=== PATIENT | female | born 1950 | race Caucasian/White ===

== ENCOUNTER 2024-07-30 10:37 | Outpatient (AMB) | payer MEDICARE, SELFPAY ==
--- NOTE | 2024-07-30 10:39 | A.OFFPC_ITS ---
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 // Requesting health review Allergies No Known Allergies Allergy (Verified 07/30/24 11:03) Medication List - Last Reconciled 07/30/24 by LLOYD Cohn- calcium carbonate-vitamin D3 600 mg-10 mcg (400 unit) (Calcium 600 with Vitamin D3) tabs PO cholecalciferol (vitamin D3) 50 mcg PO DAILY estradiol 1 mg PO DAILY medroxyprogesterone 2.5 mg PO DAILY HPI HPI Comments History of Present Illness Details 74 y/o F with HLD, hepatic cyst, osteope charly, family hx breast ca in sister, family hx of CAD, palpitations (holter sinus tach 2022, echo and stress done), premature menopause, Vit d def SurgHx: bilat cataract removal, tonsillectomy, tubal ligation, c section x 2, 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 Previous PCP, Tisha, records reviewed Last AWV 11/2023 CC: Uunsteadiness and balance issues. - She reports unsteadiness for several m onths, experiencing a general sense of imbalance, commonly when walking or gardening, with more consistent listing to the right, but not specifically related to positional changes. - Occasional dizziness is noted, but it is not severe enough to cause her to pause or sit. - The unsteadiness does not lead to fall s, except for a minor incident when she was jostled. - Dry eyes, diagnosed by an eye doctor, are sometimes accompanied by blurred vision, potentially contributing to balance issues. - The patient is otherwise active, with overall good health. - Her relevant medical history includes hyperlipidemia, hepatic cysts, osteopenia, palpitations, premature menopause, and vitamin D deficiency, which is managed with supplements. - She uses estradiol and medroxyprogeste hesham. - Her family history includes breast can cer in a sister and coronary artery disease. Exam: Awake alert NAD PERRLA, Left lateral nystagmus produces sx of head fullness , conjunctiva and sclera clear No carotid bruit Neck FROM RRR LS CTAB [place] negative; however she gets blurring of vision in contralateral eye during the manuever that improves when sitting upright. Normal strength, tone and reflexes,Oriented x 3, CN II-XI intact, CORTEZ x 4, normal speech, staggering gait, no pronator drift, no tremor Abnormal tandem gait unsteady bilat worse on the R, mildly + rhomberg Ext vasc intact. Discussion Notes I discussed with the patient the possibility that her unsteadiness could be due to several factors including inner ear issues, B12 deficiency, or a cerebrovascular event like a past stroke. I explained the need to investigate further with imaging of the brain to identify any potential structural causes, such as stroke or brain lesions, that might explain her symptoms. We also di scussed the importance of checking her blood chemistry to rule out conditions like B12 deficiency. The need for possible carotid ultrasound was also discussed, depending on previous results, as she thinks she had this done about 3 years ago. I do not have this but did request the results and will review when avail. I informed her about the procedure for scheduling an MRI of her brain, including potential insurance hurdles. I emphasized the importance of follow-up and that she should seek immediate care if her symptoms worsen or if she experiences acute neurological changes. Assessment and Plan 1. Unsteadiness and balance issues Due to the patient's symptoms and exam findings, an MRI of the brain is warranted to evaluate for potential cerebrovascular or other neurological issues. We will perform a full blood panel, including B12 levels, to assess nutritional status. Previous carotid ultrasound results will be reviewed for any need for repeat imaging. Follow-up will be scheduled once tests are completed - to be arranged by the office when results are avail If MRI denied, could do CT scan but that is not preferred. 2. Vitamin D deficiency The patient is currently managing her vitamin D deficiency with supplements. Monitoring and continuation of this treatment are planned. Patient Instructions - Continue taking your vitamin D and schuyler cium supplements as prescribed. - Use eye drops as needed to manage dry eye symptoms. - Be aware of any changes in balance or sudden changes in vision and seek immediate care if these occur. - Attend your scheduled follow-up appoin tments and obtain labs as instructed. - Follow up with your eye doctor if symp toms of blurry vision persist or worsen. - RTO once results are back, sooner PRN Consent Patient was informed and verbally consented to the use of an ambient scribe for clinic note documentation during this visit. Total time spent caring for the patient today was 60 minutes. This includes time spent before the visit reviewing the chart, time spent during the visit, and time spent after the visit on documentation, reviewing laboratory results, diagnostic imaging, medications, performing a medically necessary evaluation, counseling on diagnoses, care coordination, ordering appropriate tests, ordering appropriate medications, review of tests performed by other providers, reporting test results with the patient, communication with other healthcare providers. [facility] Medical History (Updated 07/30/24 @ 11:50 by Sofie Barbosa [facility] History of screening mammography (~12/2023) No pertinent past medical history Surgical History (Updated 07/30/24 @ 07:43 by LLOYD Cohn-FIONA) History of colonoscopy (~2022) Family History (Updated 07/30/24 @ 10:52 by Gale Pardo MA) Father Cardiovascular disease Throat cancer Sister Breast cancer Social History (Updated 07/30/24 @ 10:50 by Gale Pardo MA) Household Members: Spouse Both parents involved: No Caregiver staying overnight: No Housing: House Are you a primary hospice home care coordinator to a significant other at home: No Do you presently have visiting nurse or other home services: No 75 years or older and lives alone: No Alcohol intake: never Patient Tobacco Use Status: Never used Tobacco e-Cigarette/Vaping Use: Never Used Second Hand Smoke Exposure: No service: No Current occupational status: retired Cognitive needs: No Hearing needs: No Vision needs: No Questionnaire PHQ-9 Over the last 2 weeks, how often have you been bothered by any of the following problems? 1. Little interest or pleasure in doing things: not at all 2. Feeling down, depressed, or hopeless: not at all 3. Trouble falling or staying asleep, or sleeping too much: not at all 4. Feeling tired or having little energy: not at all 5. Poor appetite or overeating: not at all 6. Feeling bad about yourself - or that you are a failure or have let yourself or your family down: not at all 7. Trouble concentrating on things, such as reading the newspaper or watching television: not at all 8. Moving or speaking so slowly that other people could have noticed. Or the opposite - being so fidgety or restless that you have been moving around a lot more than usual: not at all 9. Thoughts that you would be better off or of hurting yourself in some way: not at all Total score: 0 Depression Screening Interpretation: Negative Depression Screening Done: Yes 03673 - PHQ-9 Billing: Yes Source: Developed by Drs. Sanchez Shah, Sherri Mejia, Jaun Silva and colleagues, with an educational no from [employer]. Thrive Questionnaire Date Thrive assessed: 07/24/24 I am a: Patient What is your living situation today?: I have a steady place to live Within the past 12 months, did the food you bought not last and you didn't have the money to get more?: Never true Within the past 12 months, did you worry whether your food would run out before you got money to buy more?: Never true Do you have trouble paying for medicines?: No Do you have trouble getting transportation to medical appointments?: No Do you have trouble paying your heating and electricity bill?: No Do you have trouble taking care of your child, family member or friend?: No Do you have trouble with day-to-day activities such as bathing, preparing meals, shopping, managing finances, etc.?: No Are you currently unemployed and looking for a job?: No Are you interested in more education?: No Please select the resources that you would like help with: None Currently or been in a relationship where the following occur: No concerns reported THRIVE Score: 0 AUDIT C Alcohol Use Questionnaire (AUDIT-C) 1. How often do you have a drink containing alcohol?: Never 2. How many drinks containing alcohol do you have on a typical day when you are drinking?: 1 or 2 3. How often do you have six or more drinks on one occasion?: Never Total Score: 0 Score Reviewed/Action Taken: Yes DILLON-7 AMB Questionnaire DILLON-7 Date DILLON - 7 assessed: 07/30/24 Feeling nervous, anxious, or on edge: 0 = Not at all Not being able to stop or control worryin = Not at all Worrying too much about different things: 0 = Not at all Trouble relaxin = Not at all Being so restless that it is hard to sit still: 0 = Not at all Becoming easily annoyed or irritable: 0 = Not at all Feeling afraid as if something awful might happen: 0 = Not at all Total DILLON-7 score (0-4 normal; 5-9 mild; 10-14 moderate; 15-21 severe): 0 Source: Developed by Drs. Sanchez Shah, Sherri Mejia, Jaun Silva and colleagues, with an educational no from [employer]. DILLON-7 Assessment Billing DILLON-7 Assessment Tool: DILLON-7 Assessment 23671 Physical exam (Primary Care) Vital Signs: Last Vital Signs Temp 97.6 F 07/30/24 10:47 Pulse 68 07/30/24 10:47 Resp 12 07/30/24 10:47 BP 104/67 07/30/24 10:47 Pulse Ox 99 07/30/24 10:47 Oxygen Delivery Method Room Air 07/30/24 10:47 BMI result Body Mass Index 24.8 Tobacco/Smoking Status: Tobacco use Status Tobacco use date assessed 07/30/24 07/30/24 10:49 Patient Tobacco Use Status Never used Tobacco 07/30/24 10:50 e-Cigarette/Vaping Use Never Used 07/30/24 10:50 PHQ-9: PHQ-9 Score PHQ-9: Total score 0 07/30/24 10:49 Depression Screening Interpretation: Negative Thrive Assessment: Date of Thrive Assessment Date Thrive assessed 07/30/24 07/30/24 10:43 Currently or been in a relationship where the following occur: No concerns reported Coding Level of Care Code New Pt Level 5 (74216) Complex EM visit Add On G2211 Diagnoses Ataxia R27.0 Encounter to establish care Z76.89 Mixed hyperlipidemia E78.2 Hyperlipidemia type: mixed hyperlipidemia Premature menopause on HRT E28.319; Z79.890 Family history of breast cancer in sister Z80.3 Osteopenia of multiple sites M85.89 Osteopenia location: multiple sites Vitamin D deficiency E55.9 Family history of coronary artery disease Z82.49 Additional Codes PHQ-9 - 52064 - PHQ-9 Billing: Yes ([id number]) DILLON-7 Assessment Billing - DILLON-7 Assessment Tool: DILLON-7 Assessment 89847 ([id number]) Assessment & Plan Assessment & Plan (1) Ataxia: Code(s): R27.0 - Ataxia, unspecified Category: Medical (2) Encounter to establish care: Code(s): Z76.89 - Persons encountering health services in other specified circumstances (3) HLD (hyperlipidemia): Code(s): E78.5 - Hyperlipidemia, unspecified Category: Medical Qualifiers: Hyperlipidemia type: mixed hyperlipidemia Qualified Code(s): E78.2 - Mixed hyperlipidemia (4) Premature menopause on HRT: Code(s): E28.319 - Asymptomatic premature menopause; Z79.890 - Hormone replacement therapy Category: Medical (5) Family history of breast cancer in sister: Code(s): Z80.3 - Family history of malignant neoplasm of breast Category: Medical (6) Osteopenia: Code(s): M85.80 - Other specified disorders of bone density and structure, unspecified site Category: Medical Qualifiers: Osteopenia location: multiple sites Qualified Code(s): M85.89 - Other specified disorders of bone density and structure, multiple sites (7) Vitamin D deficiency: Code(s): E55.9 - Vitamin D deficiency, unspecified Category: Medical (8) Family history of coronary artery disease: Code(s): Z82.49 - Family history of ischemic heart disease and other diseases of the circulatory system Category: Medical Plan . Orders: Orders Complete Blood Count no Diff Today R27.0 - Ataxia, unspecified Comprehensive Met. Panel Today R27.0 - Ataxia, unspecified Ferritin Today R27.0 - Ataxia, unspecified Lipid Panel Today R27.0 - Ataxia, unspecified Microalbumin, Random (w Creat) Today R27.0 - Ataxia, unspecified TSH reflex Free T4 Today R27.0 - Ataxia, unspecified Vitamin D 25-OH Total Today R27.0 - Ataxia, unspecified UA CC w/rflx Micro + Cult Today R27.0 - Ataxia, unspecified MR head/brain wo/w con Today R27.0 - Ataxia, unspecified Hemoglobin A1c Today R27.0 - Ataxia, unspecified IRON PROFILE Today R27.0 - Ataxia, unspecified Vitamin B12 and Folate Today R27.0 - Ataxia, unspecified Patient Instructions: Walk-In Care (Urgent Care): We Make it Easy Walk-in for urgent medical issues such as: ? Seasonal Allergies ? Insect Bites ? Cough ? Diarrhea ? Acute Asthma Attacks ? Back, Knee or Joint Pain ? Ear Infection ? Fever without a Rash ? Headaches ? Nausea ? [place] Eye, Rash or Skin Irritation ? Sore Throat ? Sports Physicals ? Vomiting Most insurances are accepted. Patients do not need to be part of the [facility] to seek care at the walk-in clinic. Locations [facility] , [place] [address] ? [phone] [facility] Walk-In Care in [place] provides services to ages 18 and over. Open Monday-Monday: 8 a.m. to 5 p.m. and Monday: 9 a.m. to 3 p.m.* *Hours may vary due to staffing availability. To confirm Walk-In Care hours in [place], please call [phone]. [address] [place] [address] ? [phone] [facility] in [place] provides services to ages 12 and over. Open Monday-Monday: 8 a.m. to 5 p.m. Hours may vary due to staffing availability. To confirm Walk-In Care hours in [place], please call [phone]. LABORATORY SERVICES: [facility] Lab ? Primary Location [address] [place] [address] Monday through Monday 6:00 AM ? 5:00 PM Monday 7:00 AM ? 11:00 AM* [phone] The [facility] Lab is centrally located near the front entrance of the [facility] for easy outpatient access. Convenient parking is provided for outpatients. *Hours may vary due to staffing availability. To confirm Laboratory hours for any location, please call [phone]. Offsite Location For your convenience, we offer offsite laboratory draw stations at the following locations: [address] [facility], [place] ? [facility] [address] [facility], [address], [place] Monday through Monday 7:30 AM ? 1:00 PM* [phone] *Hours may vary due to staffing availability. To confirm Laboratory hours for any location, please call [phone]. [place] ? [facility] [address] [facility] [place] Monday through Monday 6:00 AM ? 3:30 PM* Monday 6:30 AM ? 3 PM* [phone] *Hours may vary due to staffing availability. To confirm Laboratory hours for any location, please call [phone]. [address] [facility] Monday through Monday 7:30 AM ? 4:00 PM* [phone] *Hours may vary due to staffing availability. To confirm Laboratory hours for any location, please call [phone] [place] [address] Monday through 9:00 AM ? 4:00 PM* *Hours may vary due to staffing availability. To confirm Laboratory hours for any location, please call [phone]. Appointments are not necessary. Walk-ins are welcome. Like all the departments throughout the [facility], our Lab undergoes frequent reviews to ensure the quality and accuracy of test results, and our staff takes special pride in its status as a nationally accredited facility. Patient Portal: ONE PATIENT. ONE RECORD. BETTER CARE. [facility] has a fully integrated, cutting- edge mobile electronic health information system that has revolutionized the way we care for our patients and manage our organization. This system improves communication and coordination enabling us to provide safe, higher-quality care, and an overall positive experience for staff and patients. Our first priority, as always, is to deliver the highest quality care possible. The system is running in the background supporting that priority. This portal is for all [facility] services and practices. If you are experiencing any technical difficulties with enrolling or logging into the Patient Portal please complete the [facility] Patient Portal Technical Support Form. [facility] now offers a new secure on-line interactive tool for patients to review their health information ? Patient Portal. This interactive web portal will enable patients and their families to take an active role in their care by providing easy, secure access to their health information via the internet. The Patient Portal provides patients with instant access to their health information, including laboratory results, medications, allergies, demographic information, visit history, and more. In addition to managing their own care, parents and health care proxies with authorized consent will appreciate the ability to access the records of those individuals for whom they provide care. Please note: if you wish to gain access (Proxy) to another patient?s portal, you will be required to come to the Medical Records Department in person at [facility]. Both the patient giving proxy access and the proxy will need to provide photo identification and complete the appropriate authorization. The Patient Portal also allows track their appointments online. The [facility] Patient Portal also saves patients time by allowing them to submit updates to their demographic and contact information prior to their visits. Portal email notifications will also alert patients to any new activity on their portal, such as test results and new appointments. In order to initially enroll in the [facility] Patient Portal, you will need to enter some required information including the following: ? your [facility] Medical Record number ? your personal home email address ? name ? date of Please note: In order to enroll in the [facility] Patient Portal, we need to have your email address on file in your electronic medical record. The email address needs to be specific for one person (yourself) in order for your Portal enrollment to be successful. You can update your email address in person with our Registration staff when you are registering for a hospital visit. Otherwise, you will need to come to the Health Information Management (Medical Records) Department at [facility]. We are open from Monday ? Monday from 7:30 a.m. ? 4:30 p.m. You will be required to present a photo id. Once you have successfully enrolled in the Patient Portal, you will receive a one-time user id and password for the Portal, sent to your email address. This will allow you to log into the Patient Portal within 99 hrs and reset your own logon id and password, and define personal security questions. Once your permanent login and password have been set, you can log into the [facility] Patient Portal at any time via the blue button above or from the Portal Logon button on any page of the [facility] website. [facility] encourage all of our patients to enroll in Patient Portal as it presents a valuable opportunity for patients and their families to actively participate in their care and stay healthy Welcome to [facility]. We look forward to working with you.
--- NOTE | 2024-07-30 10:39 | A.OFFPC_ITS ---
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: No Allergies No Known Allergies Allergy (Verified 07/30/24 11:03) Medication List - Last Reconciled 07/30/24 by JOHNATHON Cohn calcium carbonate-vitamin D3 600 mg-10 mcg (400 unit) (Calcium 600 with Vitamin D3) tabs PO cholecalciferol (vitamin D3) 50 mcg PO DAILY estradiol 1 mg PO DAILY medroxyprogesterone 2.5 mg PO DAILY Tobacco use date assessed: 07/30/24 Fall risk assessment: 1 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 [facility] Medical History (Updated 07/30/24 @ 11:50 by JOHNATHON Cohn) History of screening mammography (~12/2023) No pertinent past medical history Surgical History (Updated 07/30/24 @ 07:43 by JOHNATHON Cohn) History of colonoscopy (~2022) Family History (Updated 07/30/24 @ 10:52 by Gale Pardo MA) Father Cardiovascular disease Throat cancer Sister Breast cancer Social History (Updated 07/30/24 @ 10:50 by Gale Pardo MA) Household Members: Spouse Housing: House Are you a primary patient care specialist to a significant other at home: No Do you presently have visiting nurse or other home services: No Alcohol intake: never Patient Tobacco Use Status: Never used Tobacco e-Cigarette/Vaping Use: Never Used Second Hand Smoke Exposure: No service: No Current occupational status: retired Cognitive needs: No Hearing needs: No Vision needs: No Questionnaire PHQ-9 Over the last 2 weeks, how often have you been bothered by any of the following problems? 1. Little interest or pleasure in doing things: not at all 2. Feeling down, depressed, or hopeless: not at all 3. Trouble falling or staying asleep, or sleeping too much: not at all 4. Feeling tired or having little energy: not at all 5. Poor appetite or overeating: not at all 6. Feeling bad about yourself - or that you are a failure or have let yourself or your family down: not at all 7. Trouble concentrating on things, such as reading the newspaper or watching television: not at all 8. Moving or speaking so slowly that other people could have noticed. Or the opposite - being so fidgety or restless that you have been moving around a lot more than usual: not at all 9. Thoughts that you would be better off or of hurting yourself in some w ay: not at all Total score: 0 Depression Screening Interpretation: Negative Depression Screening Done: Yes 32755 - PHQ-9 Billing: Yes Source: Developed by Drs. Sanchez Shah, Sherri Mejia, Jaun Silva and colleagues, with an educational no from hereO. Thrive Questionnaire Date Thrive assessed: 07/30/24 I am a: Patient What is your living situation today?: I have a steady place to live Within the past 12 months, did the food you bought not last and you didn't have the money to get more?: Never true Within the past 12 months, did you worry whether your food would run out before you got money to buy more?: Never true Do you have trouble paying for medicines?: No Do you have trouble getting transportation to medical appointments?: No Do you have trouble paying your heating and electricity bill?: No Do you have trouble taking care of your child, family member or friend?: No Do you have trouble with day-to-day activities such as bathing, preparing meals, shopping, managing finances, etc.?: No Are you currently unemployed and looking for a job?: No Are you interested in more education?: No Please select the resources that you would like help with: None Currently or been in a relationship where the following occur: No concerns reported THRIVE Score: 0 AUDIT C Alcohol Use Questionnaire (AUDIT-C) 1. How often do you have a drink containing alcohol?: Never 2. How many drinks containing alcohol do you have on a typical day when you are drinking?: 1 or 2 3. How often do you have six or more drinks on one occasion?: Never Total Score: 0 DILLON-7 AMB Questionnaire DILLON-7 Date DILLON - 7 assessed: 07/30/24 Feeling nervous, anxious, or on edge: 0 = Not at all Not being able to stop or control worryin = Not at all Worrying too much about different things: 0 = Not at all Trouble relaxin = Not at all Being so restless that it is hard to sit still: 0 = Not at all Becoming easily annoyed or irritable: 0 = Not at all Feeling afraid as if something awful might happen: 0 = Not at all Total DILLON-7 score (0-4 normal; 5-9 mild; 10-14 moderate; 15-21 severe): 0 Source: Developed by Drs. Sanchez Shah, Sherri Mejia, Jaun Silva and colleagues, with an educational no from here[employer]. DILLON-7 Assessment Billing DILLON-7 Assessment Tool: DILLON-7 Assessment 06134 Physical exam (Primary Care) Vital Signs: Last Vital Signs Temp 97.6 F 07/30/24 10:47 Pulse 68 07/30/24 10:47 Resp 12 07/30/24 10:47 BP 104/67 07/30/24 10:47 Pulse Ox 99 07/30/24 10:47 Oxygen Delivery Method Room Air 07/30/24 10:47 BMI result Body Mass Index 24.8 Tobacco/Smoking Status: Tobacco use Status Tobacco use date assessed 07/30/24 07/30/24 10:49 Patient Tobacco Use Status Never used Tobacco 07/30/24 10:50 e-Cigarette/Vaping Use Never Used 07/30/24 10:50 PHQ-9: PHQ-9 Score PHQ-9: Total score 0 07/30/24 11:07 Depression Screening Interpretation: Negative Thrive Assessment: Date of Thrive Assessment Date Thrive assessed 07/30/24 07/30/24 10:43 Currently or been in a relationship where the following occur: No concerns reported Coding Level of Care Code Admin Sign Off/No Billing Diagnoses Ataxia R27.0 Additional Codes DILLON-7 Assessment Billing - DILLON-7 Assessment Tool: DILLON-7 Assessment 68572 ([id number]) PHQ-9 - 56318 - PHQ-9 Billing: Yes ([id number]) Assessment & Plan Assessment & Plan (1) Ataxia: Code(s): R27.0 - Ataxia, unspecified Category: Medical Plan DUPLICATE NOTE, SEE OTHER NOTE ON SAME DATE. Orders: Orders Complete Blood Count no Diff 07/30/24 R27.0 - Ataxia, unspecified Comprehensive Met. Panel 07/30/24 R27.0 - Ataxia, unspecified Ferritin 07/30/24 R27.0 - Ataxia, unspecified Lipid Panel 07/30/24 R27.0 - Ataxia, unspecified Microalbumin, Random (w Creat) 07/30/24 R27.0 - Ataxia, unspecified TSH reflex Free T4 07/30/24 R27.0 - Ataxia, unspecified Vitamin D 25-OH Total 07/30/24 R27.0 - Ataxia, unspecified UA CC w/rflx Micro + Cult 07/30/24 R27.0 - Ataxia, unspecified MR head/brain wo/w con 07/30/24 R27.0 - Ataxia, unspecified Hemoglobin A1c 07/30/24 R27.0 - Ataxia, unspecified IRON PROFILE 07/30/24 R27.0 - Ataxia, unspecified Vitamin B12 and Folate 07/30/24 R27.0 - Ataxia, unspecified
[2024-07-30 10:47] VITALS: BP 104/67; PULSE 68; RESP 12; TEMP 36.4; O2SAT 99; BMI 24.8
--- OUTSIDE RECORDS SUMMARY | 2024-07-30 12:14 | XMS_ITS | Data Portability ---
Author Organization [place] - [facility],, RADHA ROBERT MD Address [address] [address] Care Team Providers Care Client Strategist Name Role Phone BRIAN LEMOS Primary Care Provider [phone] Assessment No assessment recorded. Plan of Treatment Reminders Order Date Submit Date Provider Last Modified By Organization Details Last Modified Time Details Appointments ANNUAL EXAM 2025 09:40A M Radha Robert MD Not available Not available Not available Lab cytology report, thin prep, smear or scraping , cervical or vaginal 2023 024 QUINTEN [facility] (Centralized Electronic Ordering - All Locations), Patient Can Go To The Location Of Their Choice, [id number] 09/14/2023 10:07:31 pap test, thinprep , cervical 2021 [email or web address], [address] [place] [address], [address], 09/15/2021 07:40:42 Referral None recorded . Procedures None recorded . Surgeries None recorded . Imaging MAMMO, screenin g, digital, bilatera l - Breast Aspirati on and/or Biopsy if needed 2023 024 [facility], [address], [place], [address], 01/17/2024 10:47:14 bone density 2023 024 [email or web address], [address], [address], [place], [address], 09/08/2023 11:45:52 MAMMO, screenin g, digital, bilatera l 2021 022 [facility] ([facility]), [address] [place], [address], 11/26/2021 09:43:36 bone density 2021 022 [facility] ([facility]), [address] [place], [address], 08/28/2023 07:20:08 Medication Orders medroxyp rogester one 2.5 mg tablet 2023 024 [facility]/Pharmacy #[facility], [address] [place] [address], [id number], 09/08/2023 09:55:42 estradio l 1 mg tablet 2023 024 [facility]/Pharmacy #[facility], [address] [place] [address], [id number], 09/08/2023 09:55:41 estradio l 1 mg tablet 2022 023 [facility]/Pharmacy #[facility], [address] [place] [address], [id number], 11/08/2022 08:46:23 medroxyp rogester one 2.5 mg tablet 2022 023 [facility]/Pharmacy #[facility], [address] [place] [address], [id number], 11/08/2022 08:46:23 estradio l 1 mg tablet 2021 022 [facility]/Pharmacy #[facility], [address] [place] [address], [id number], 09/01/2021 11:25:06 medroxyp rogester one 2.5 mg tablet 2021 022 [facility]armacy #[id number], [address] [place], [address], 09/01/2021 11:25:06 Patient TargetsNo targets recorded. Patient Instructions Encounter Date Encounter Id Patient Instructions Last Modified By Organization Details Last Modified Time 02/03/2021 [id number] This visit is a phone telehealth visit. The patient consented to the visit by phone. The patient was at home at the time of the call and the provider and patient were the only people on the line. I was at [address] [place] [address], [address], [place], at the time of the call. Her recent bone density showed worsening osteopenia, with her hip T score being -2.4, despite being on HRT since prior to 2011. She is also concerned because she has a mass under her breast that has been there since July, on and off , and her sister has had breast cancer. Her mammogram in 10/2020 was negative. After discussion it is apparent that she has very little calcium in her daily intake, and takes no supplements. It is concerning that her bones are worsening while taking HRT. We discussed her diagnosis of worsening osteopenia. We reviewed the results of her bone density test, with reference to the computer images. We discussed the way that standard deviation is used for diagnosis, and what this means to her as she ages. Adequate calcium intake of 1500 mg daily, weight bearing exercise three times a week, and vitamin D supplementation of at least 400 units daily is suggested. She is advised to avoid tobacco, coffee, and steroids if possible. Benefits of an active lifestyle discussed as well. All questions answered. We discussed the different forms of medical treatment for osteoporosis, in case she might need this in the future. She will repeat the bone density testing in 2 years to assess her progress.She is aware that if her bone density diminished significantly in the intervening 2 years she may need medical therapy at that time. She is encouraged to try this preventive therapy first. Return for routine annual exam as scheduled. We also discussed her breast mass, she would like to have it examined, as her sister had breast cancer at age 49 and at age 52. The patient had previously declined BRCA testing. Come in for exam and discussion. Face to face discussion for 20 minutes. Not available 02/03/2021 09:53:13 02/05/2021 [id number] costochondritis: care instructions [email or web address] Not available 02/05/2021 10:20:11 She is here for pain and mass that has been present under her left breast since 07/2020. She first noted it after she painted her bedroom and started lifting 1 pound hand weights. The pain is worse with movement or activity using those muscles in that area, and the lump comes and goes, like a swelling. On exam: There is point tenderness over the 5th left rib just medial to the anterior axillary line. There is no point tenderness lateral to that, there is mild tenderness toward the sternum, medial to that point, along the bone. No mass is palpated. It appears that she has a costochondritis possibly due to repetitive motion from painting or arm weight exercises. 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 She is advised to put that arm in a a sling to remind herself not to use it, and to take NSAIDS if tolerated, every 4 to 6 hours for a few days, to see if this helps to calm it down. If the pain persists despite rest and medication then she should contact her PCP to have imaging done to be certain there is not a bone lesion at that spot, she understands and agrees. All questions answered. Face to face discussion 30 minutes kanwal Not available 02/05/2021 09:41:45 09/01/2021 [id number] atrophic vaginit is: care instructions Not available 09/01/2021 11:25:00 learning about healthy weight kanwal Not available 09/01/2021 11:25:00 She is here for annual exam, is doing well on her HRT and elects to continue. She has vasomotor symptoms if she misses a pill. 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 She appears to be doing well. She is doing well on HRT and elects to continue. She will call when she needs more aristocort. She appears to be doing well. We discussed having her continue to take hormone replacement therapy. We discussed the need to take a progestin if a uterus is present, and the rationale behind that. We discussed the stated risks of one in 10,000 of development of a blood clot/DVT/PE that could be life threatening. We discussed the Women's Health Initiative study and the findings. We discused the PEPPI study as well. She is aware that there are conflicting reports in the medical literature concerning the risks and benefits of HRT. We disussed that women are advised by ACOG to take HRT in the lowest dose necessary, and for the shortest time necessary, to control their symptoms. After a long discussion of the potential risks and benefits of HRT she elects to continue HRT. All questions were answered. Rx for HRT is called in to the pharmacy. Call if any vaginal bleeding occurs upon initiation of HRT, or at any time postmenopausally. Not available 09/01/2021 11:24:26 11/08/2022 [id number] This visit is a phone telehealth visit. The patient consented to the visit by phone. The patient was at home at the time of the call and the provider and patient were the only people on the line. I was at [address] [place] [address], [facility] [address] [place], [place], at the time of the call. She is taking HRT and doing well on it, she would like continue. She has shira taking it for more than 12 years. She does have hot flashes if she forgets to take it. We discussed having her continue to take hormone replacement therapy. We discussed the need to take a progestin if a uterus is present, and the rationale behind that. We discussed the stated risks of one in 10,000 of development o fa blood clot/DVT/PE that could be life threatening. We discussed the Women's Health Initiative study and the findings. We discussed that women are advised by ACOG to take HRT in the lowest dose necessary, and for the shortest time necessary, to control their symptoms. We discussed how to wean down on HRT to see if she still needs it. After a long discussion of the potential risks and benefits of HRT she elects to continue HRT. All questions answered. Rx for HRT is called in to the pharmacy. Call if any vaginal bleeding occurs upon initiation of HRT, or at any time postmenopausally. Face to face discussion for 12 minutes. Not available 11/08/2022 08:52:52 09/08/2023 [id number] atrophic vaginit is: care instructions Not available 09/08/2023 09:36:24 learning about healthy weight kanwal Not available 09/08/2023 09:36:25 She is here for annual exam, is doing well on her HRT and elects to continue. She has vasomotor symptoms if she misses a pill. She elects to continue the HRT. 1 in 10,000 chance of DVT/PE. She appears to be doing well. . Monthly self breast exam was taught, and stressed, and is advised to call if she discovers any new mass in the breast. [email or web address] Not available 09/08/2023 09:55:28 Reason for Referral None Reported. Results Created Date Observation Date Name Description Value Unit Range Abnormal Flag Note LastModifiedBy Organization Detail LastModifiedTime 09/02/19 22 09/01/2021 PAP1C ASE [id number] ThinP rep Pap, Image d: NEGAT СЕРГЕЙ FOR SQUAM OUS INTRA EPITH ELIAL LESIO N AND CHAPARRO KATCY . React сергей cellu bk bauer es. Burson blanca estro gen for patie nt's age and histo ry. Jameson Nielson r , CT( CP) (Case Paulino kirill 09 09 2021) Radhames serrato M.D. , Patho logis t (Case elect derek hastings nate d 09 10 2021) ADEQU ACY: Satis facto ry Endoc ervic al/tr ansfo rmati on zone compo nent absen t. SOURC E: ThinP rep Pap HPV IF Ascus : Refle x 16 and 18, Cervi schuyler, Image d CLINI SCHUYLER INFOR MATIO N: HPV If Diagn osis of ASCUS . LPS 6/8/2 0 neg. [z12. 4] Not Available [facility], Cytopathology Service [address] [facility], [place], [address], 09/10/2021 10:11:13 09/08/19 24 09/14/2023 IGP, RFX APTIM A HPV ASCU diagnosis: Commen t NEGAT СЕРГЕЙ FOR INTRA EPITH ELIAL LESIO N OR MALIG DRE . THIS SPECI MEN WAS RESCR EENED PART OF OUR QUALI TY CONTR OL PROGR AM. Not Available [facility] ([facility]) [address] [place], [address], 09/14/2023 10:07:31 09/08/19 24 09/14/2023 IGP, RFX APTIM A HPV ASCU specimen adequacy: Kenzie timmons Satis facto ry for evalu ation . Endoc ervic al and/o r squam ous metap lasti c cells (endo cervi schuyler compo nent) are prese nt. Not Available [facility] ([facility]) [address] [place], [address], 09/14/2023 10:07:31 09/08/19 24 09/14/2023 IGP, RFX APTIM A HPV ASCU clinician provided ICD10: Kenzie timmons Z12.4 Not Available [facility] ([facility]) [address] [place], [address], 09/14/2023 10:07:31 09/08/19 24 09/14/2023 IGP, RFX APTIM A HPV ASCU performed by: Kenzie andrews, Cytot echno logis t (ASCP ) Not Available [facility] ([facility]) [address] [place], [address], 09/14/2023 10:07:31 09/08/19 24 09/14/2023 IGP, RFX APTIM A HPV ASCU QC reviewed by: Kenzie Crain, Cytot echno logis t (ASCP ) Not Available [facility] ([facility]) [address] [place], [address], 09/14/2023 10:07:31 09/08/19 24 09/14/2023 IGP, RFX APTIM A HPV ASCU . . Not Available [facility] ([facility]) [address] [place], [address], 09/14/2023 10:07:31 09/08/19 24 09/14/2023 IGP, RFX APTIM A HPV ASCU note: Commen t The Pap smear is a scree edna test desig kirill to aid in the detec tion of dayna ligna nt and malig nant condi tions of the uteri ne cervi x. It is not a diagn ostic proce dure and shoul d not be used as the sole means of detec ting cervi schuyler cance r. Both false -posi tive and false -nega tive repor ts do occur . Not Available [facility] ([facility]) [address] [facility], [place], [address], 09/14/2023 10:07:31 09/08/19 24 09/14/2023 IGP, RFX APTIM A HPV ASCU test methodology: Commen t This liqui d based ThinP rep(R ) pap test was scree kirill with the use of an image guide d syste m. Not Available [facility] ([facility]) [address] [facility], [place], [address], 09/14/2023 10:07:31 09/08/19 24 09/14/2023 IGP, RFX APTIM A HPV ASCU . Commen t The HPV DNA refle x crite gabino were not met with this speci men resul t there fore, no HPV testi ng was perfo rmed. Not Available [facility] ([facility]) [address] [facility], [place], [address], 09/14/2023 10:07:31 02/03/20 21 02/02/2021 bone densi ty No observ ation record ed. [email or web address] Not Available 2020 09:18:06 02/03/20 21 03/13/2018 bone densi ty No observ ation record ed. Not Available 11/2020 14:02:29 11/27/19 22 11/26/2021 MAMMO , scree edna, digit al, bilat eral No observ ation record ed. Not Available 04/2021 09:50:25 01/12/2001/11/2023 MAMMO , scree edna, digit al, bilat eral No observ ation record ed. [facility] [address] [place], [address], 01/11/2023 11:41:52 01/17/20 24 01/17/2024 MAMMO , paulino osoriog, digit al, bilat eral No observ ation record ed. [facility] [address] [place], [address], 01/17/2024 11:09:55 Result Notes None recorded. 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, 6 08:14:33 Lichen sclerosus et atrophicus Active Radha Robert MD [address], [place], [address], [place] [facility], 6 08:14:33 Menopausal syndrome 410562888 Active Radha Robert MD [address], [place], [address], [place] - [facility], 6 09:57:18 Osteopenia 651359218 Active 2020 Radha Robert MD [address], [address], [place] [facility], 09:33:40 Breast lump 49006902 Active 2020 Radha Robert MD [address], [place], [address], [place] [facility], 09:33:50 Problem Notes None recorded. Procedures Surgical History Date Name Laterality Status Provider Name and Address Organization Details Recorded Time 1 Most Recent Mammogram completed Heidy Parr [facility], 08/25/2021 09:49:05 9 Most Recent Bone Density completed Heidy [facility], 09/02/2019 10:16:07 5 Caesarean Section completed Heidy Naidu [place] - [facility], 11/11/2011 08:06:14 Imaging Results Imaging Date Name Status LastModified by [facility] Details LastModified Time 02/02/2021 bone density completed Information not available 02/03/2021 09:18:06 03/13/2018 bone density completed Information not available 02/02/2021 14:02:29 11/26/2021 MAMMO, screening, digital, bilateral completed Information not available 11/26/2021 09:50:25 01/11/2023 MAMMO, screening, digital, bilateral [facility] [address], [address], 01/11/2023 11:41:52 01/17/2024 MAMMO, screening, digital, bilateral [facility] [address], [address], 01/17/2024 11:09:55 Procedure Notes None recorded. Medical Equipment None Reported. Allergies No known drug allergies Medications Name Sig Start Date Stop Date Status Note LastModified by Organization Details LastModified Time amoxicillin 500 mg capsule TAKE 1 CAPSULE BY MOUTH 3 TIMES A DAY UNTIL FINISHED 09/07 completed Not Available Not Available Not Available silver sulfadiazin e 1 % topical cream 09/01 completed Not Available Not Available Not Available betamethaso ne valerate 0.1 % topical ointment active Not Available Not Available Not Available prednisone 10 mg tablet 09/01 completed Not Available Not Available Not Available medroxyprog esterone 2.5 mg tablet TAKE 1 TABLET BY MOUTH EVERY DAY 2023 active Not Available Not Available Not Avai lable prednisone 20 mg tablet 07/06 completed Not Available Not Available Not Available clindamycin HCl 150 mg capsule 07/06 completed Not Available Not Available Not Available estradiol 1 mg tablet TAKE 1 TABLET BY MOUTH EVERY DAY 2023 active Not Available Not Available Not Avai lable cephalexin 500 mg capsule active Not Available Not Available Not Available erythromyci n 5 mg/gram (0.5 %) eye ointment APPLY TO LOWER LID 4 TIMES A DAY 06/24 completed Not Available Not Available Not Available triamcinolo ne acetonide 0.1 % topical ointment apply topically as thin film to the outside skin of the vulva twice a day as needed for comfort active Not Available Not Available No t Available gabapentin 300 mg capsule 09/01 completed Not Available Not Available Not Available ibuprofen 600 mg tablet TAKE 1 TABLET BY MOUTH EVERY 6 HOURS NEEDED FOR PAIN active Not Available Not Available No t Available methylpredn isolone 4 mg tablets in a dose pack 06/24 completed Not Available Not Available Not Available amoxicillin 875 mg-potassiu m clavulanate 125 mg tablet 07/06 completed Not Available Not Available Not Available oxycodone 5 mg tablet TAKE 1 TABLET BY MOUTH EVERY 4 HOURS NEEDED FOR PAIN 09/07 completed Not Available Not Available Not Available Estrace 0.01% (0.1 mg/gram) vaginal cream Insert 0.5 g 3 times a week by vaginal route at bedtime. active Not Available Not Available No t Available fluocinonid e 0.1 % topical cream 09/01 completed Not Available Not Available Not Available BinaxNOW COVID-19 Ag Self Test kit USE DIRECTED active Not Available Not Available No t Available Vitals Date Recorded Body weight Body mass index (BMI) Body height Body temperature Heart rate Systolic blood pressure Diastolic blood pressure Provider Name and Address Organization Details Last Updated DateTime 1 63020.5 2 g 24.6 kg/m2 161.29 cm 97.5 [degF] 76 /min 116 mm[Hg] 66 mm[Hg] Ronda Tillman [place] [facility], 1 09:15:43 Date Recorded Body height Body mass index (BMI) Body weight Heart rate Body temperature Systolic blood pressure Diastolic blood pressure Provider Name and Address Organization Details Last Updated DateTime 2 161.29 cm 24.2 kg/m2 32550.9 g 84 /min 97.2 [degF] 111 mm[Hg] 59 mm[Hg] Heidy Naidu [place] - [facility], 2 09:33:04 Date Recorded Body temperature Body height Body mass index (BMI) Body weight Heart rate Systolic blood pressure Diastolic blood pressure Provider Name and Address Organization Details Last Updated DateTime 4 97.6 [degF] 162.56 cm 24.2 kg/m2 72664.5 2 g 89 /min 123 mm[Hg] 55 mm[Hg] harshil hager [place] - [facility], 4 09:32:17 Social History Question Answer Notes LastModified by Organizat ion Details LastModified Time Tobacco Smoking Status Never Smoker Not Available [facility] 01/28/2020 03:19:37 What Is Your Level Of Alcohol Consumption? None [email or web address] Information not available 02/05/2021 What Is Your Level Of Caffeine Consumption? Moderate [id number] Information not available 01/28/2020 In The 14 Days Before Symptom Onset, Have You Had Close Contact With A Laboratory-confir med COVID-19 While That Case Was Ill? No Information not available 11/20/2020 In The 14 Days Before Symptom Onset, Have You Had Close Contact With A Person Who Is Under Investigation For COVID-19 While That Person Was Ill? No Information not available 11/20/2020 Have You Been To An Area Known To Be High Risk For COVID-19? No Information not available 11/20/2020 Are You Currently Employed? Yes Information not available 11/20/2020 What Type Of Diet Are You Following? REGULAR [id number] Information not available 01/28/2020 Which Illicit Or Recreational Drugs Have You Used? No [id number] Information not available 01/28/2020 Do You Reside In Or Have You Traveled To An Area Where Ebola Virus Transmission Is Active? No [id number] Information not available 01/28/2020 Do You Or Have You Ever Used E-cigarettes Or Vape? Never Used Electronic Cigarettes [id number] Information not available 01/28/2020 Education Post Graduate Information not available 11/11/2011 What Is The Highest Grade Or Level Of School You Have Completed Or The Highest Degree You Have Received? [id number] Information not available 11/20/2020 Who Is Your Employer? Retired Information not available 09/01/2021 How Many Days In The Past Year Have You Had A Heavy Drinking Consumption (4+ Female, 5+ Male)? 0 Information no t available 06/24/2016 Are There Any Guns Present In Your Home? No Information not available 11/20/2020 High Number Of Sexual Partners No Information not available 06/24/2016 To Which Gender Do You Self-identify? Female Information not available 06/24/2016 Marital Status Informatio n not available 11/11/2011 What Was The Date Of Your Most Recent Tobacco Screening? 09/08/2023 [email or web address] Information not available 09/08/2023 What Is Your Relationship Status? Information not available 09/01/2021 Are You Sexually Active? No [id number] Information not available 01/28/2020 Do You Or Have You Ever Used Smokeless Tobacco? Never Used Smokeless Tobacco [id number] Information not available 01/28/2020 How Much Tobacco Do You Smoke? No [id number] Information not available 01/28/2020 General Stress Level Low Information not available 09/01/2021 Do You Feel Stressed (tense, Restless, Nervous, Or Anxious, Or Unable To Sleep At Night)? [id number] Information not available 11/20/2020 Do You Use Any Illicit Or Recreational Drugs? No Information not available 11/20/2020 How Many Years Have You Smoked Tobacco? 0 [id number] Information not available 01/28/2020 Have You Recently (within The Last 12 Weeks, Or During A Current ) Traveled To Or Lived In A Zika-affected Area? No Information not available 06/24/2016 Do You Or Have You Ever Used Any Other Forms Of Tobacco Or Nicotine? No Information not available 11/20/2020 Sex: Female Functional Status Question Answer Note LastModified by Organizat ion Details LastModified Time What is your exercise level? Occasional [id number] Information not available 01/28/2020 Mental Status None recorded. Family History Relationship Description Onset Age of this Age Resolved Age Notes LastModified by Organization Details LastModified Time Sister Malignant tumor of breast 49 52 previo usly record ed as Breast Cancer Not available 05/14/2014 08:21:56 Sister Malignant neoplasm of ovary previo usly record ed as Ovaria n Cancer Not available 06/11/2015 08:11:32 Paternal Aunt Malignant tumor of cervix previo usly record ed as Cervic al Cancer Not available 06/11/2015 08:11:32 Father Malignant neoplastic disease larynx ,every where (previ ously record ed as Cancer ) Not available 06/11/2015 08:11:32 Father Myocardial infarction previo usly record ed as Heart Attack ([place]) Not available 06/11/2015 08:11:32 Notes:does not want to do br ca testing. 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 Y Thyroid Problems N Kidney or Bladder Problems N GI Problems N Lung Disease N Depression N Defects or Inherited Disease N History of Ovarian Cancer N Anemia N History of Breast Cancer N FERNANDA exposure N BRCA testing in past N Osteopenia Y Psychiatric Illness N Anxiety Disorder N Diabetes N Arthritis N Headaches or Migraines N Infertility N Asthma N History of Cancer N Endometriosis N Hepatitis N Heart Disease N Hypertension N Gynecological History Statement/Question Response If Post Menopausal, Age at Menopause 37 Age at Menarche 13 Most Recent Mammogram 11/24/2020 Age at First Child 21 Most Recent Bone Density 03/27/2018 Obstetrics History GPAL:G 2 P 2 0 0 2 Type Value Full Term 2 Living 2 Total 2 Immunizations Vaccine Type Date Status Note Provider Nam e and Address Organization Details Recorded Time pneumococcal, unspecified formulation 03/28/2016 completed Janell balderas [place] - [facility], 06/24/2016 13:13:47 COVID-19, mRNA, LNP-S, PF, 30 mcg/0.3 mL dose 06/02/2020 completed JOSIANE Rea in [facility], 11/20/2020 09:42:06 COVID-19, mRNA, LNP-S, PF, 30 mcg/0.3 mL dose 05/15/2020 completed JOSIANE Su in [facility], 02/05/2021 09:16:20 COVID-19, mRNA, LNP-S, PF, 30 mcg/0.3 mL dose 01/01/2021 completed JOSIANE Su in [facility], 02/05/2021 09:16:43 Past Encounters Encounter ID Performer Location Encounter Start Date Encounter Closed Date Diagnosis/Indication Diagnosis SNOMED-CT Code Diagnosis ICD10 Code Diagnosis Note [id number] MD RADHA Jason MD [facility] [address] [address] [place] [address] 11/11/2011 07:44:17 11/11/2011 13:05:11 [id number] MD RADHA Jason MD [facility] [address] [place] [address] 12/04/2012 07:38:55 12/04/2012 13:36:13 [id number] MD RADHA Jason MD [address] [place] [address],[address] [place] [address] 05/14/2014 08:04:14 05/14/2014 09:05:32 Specialized medical examination [id number] Screening for malignant neoplasm of rectum 573049626 Screening mammography [id number] MD RADHA Jason MD [address] [place] [address] 06/11/2015 07:51:43 06/11/2015 10:43:28 Screening for malignant neoplasm of cervix 549231619 Z12.4 Screening mammography 24 503834 Z12.31 Menopausal syndrome 1237 53672 N95.9 [id number] MD RADHA Jason MD [address] [place] [address] 06/24/2016 13:00:18 06/24/2016 14:38:26 Screening for malignant neoplasm of cervix 549366132 Z12.4 Screening mammography 24 471358 Z12.31 Cares for self 840413434 Z76.89 [id number] MD RADHA Jason MD [address] [place] [address] [place] [address] 07/06/2017 13:18:57 07/06/2017 14:46:33 Screening for malignant neoplasm of cervix 130571376 Z12.4 Screening mammography 24 219150 Z12.31 Lichen scl erosus et atrophicus 79742123 L90.0 [id number] MD RADHA Jason MD [address] [place] [address] [place] [address] 09/02/2019 10:06:05 09/02/2019 11:28:38 Screening for malignant neoplasm of cervix 494273205 Z12.4 Screening mammography 24 768193 Z12.31 Menopausal syndrome 1237 94452 N95.1 [id number] MD RADHA Jason MD [address] [place] [address] [place] [address] 11/20/2020 09:40:11 11/20/2020 12:41:18 Menopausal syndrome 527361355 N95.1 Atrophic vulvovaginitis 53596494 N95.2 [id number] MD RADHA Jason MD [address] [place] [address] [place] [address] 02/03/2021 09:13:28 02/03/2021 09:56:29 Osteopenia 306590949 M85.852 Breast lump [id number] N63 .0 [id number] MD RADHA Jason MD [address] [place], [place] [address] [address] 02/05/2021 09:06:58 02/05/2021 10:26:06 Anterior chest wall pain 362649993 R07.89 Costal chondritis 732644 04 M94.0 Breast lump [id number] N63 .23 [id number] MD RADHA JasonAN MD [address] [facility], [address] [facility] [place] [address] 09/01/2021 09:25:15 09/01/2021 11:29:10 Screening for malignant neoplasm of cervix 991605344 Z12.4 Screening mammography 24 311067 Z12.31 Screening for osteoporosis 844416920 N95.8 Menopausal syndrome 1237 98487 N95.8 [id number] MD RADHA Jason MD [address] [place] [address],[facility] [place] [address] 11/08/2022 08:38:37 11/08/2022 10:22:46 Menopausal syndrome 325745927 N95.8 [id number] MD RADHA Jason MD [address] [facility], [place] [address] 09/08/2023 09:28:39 09/08/2023 11:45:52 Screening for malignant neoplasm of cervix 270178372 Z12.4 Screening mammography 24 183995 Z12.31 Screening for osteoporosis 081715227 N95.8 Menopausal syndrome 1237 21270 N95.8 Health Concerns Section Related Observation LastModified by Organization Detai ls LastModified Time None Recorded Concern Status LastModified by Organization Details LastModified Time None Recorded Advance Directives Directive None Recorded Payers Encounter Date Sequence Insurance Name Policy Number Policy Schaffer Covered Member ID Schaffer Member ID Guarantor Name 02/03/2021 2 [place] Nasir Lawson [id number] Chelsey Drugan 02/03/2021 1 [place] Chelsey A Drugan [id number] Chelsey Drugan 02/05/2021 2 [place] Nasir Lawson [id number] Chelsey Drugan 02/05/2021 1 [place] Chelsey A Drugan [id number] Chelsey Drugan 09/01/2021 2 [place] Nasir Lawson [id number] Chelsey Drugan 09/01/2021 1 [place] Chelsey Ngo Drugan [id number] Chelsey Drugan 11/08/2022 2 [place] Nasir Lawson [id number] Chelsey Drugan 11/08/2022 1 [place] [facility] GOVERNMENT SERVICES Chelsey A Drugan [id number] Chelsey Drugan 09/08/2023 2 [place] Nasir Lawson [id number] Chelsey Drugan 09/08/2023 1 [place] [facility] SERVICES Chelsey Ngo Drugan [id number] Chelsey Drugan Notes Date Note Type Note Provider Name and Address Organization Details Recorded Time 02/03/2021 text/html This visit is a phone telehealth visit. The patient consented to the visit by phone. The patient was at home at the time of the call and the provider and patient were the only people on the line. I was at [address] [place] [address], [facility] [address], [place], [place], at the time of the call. Her recent bone density showed worsening osteopenia, with her hip T score being -2.4, despite being on HRT since prior to 2011. She is also concerned because she has a mass under her breast that has been there since July, on and off , and her sister has had breast cancer. Her mammogram in 10/2020 was negative. Radha Robert MD [address] [facility],[address], [place], [address], [employer] [facility], 02/03/2021 09:53:27 02/05/2021 text/html She is here for pain and mass that has been present under her left breast since 07/2020. She first noted it after she painted her bedroom and started lifting 1 pound hand weights. The pain is worse with movement or activity using those muscles in that area, and the lump comes and goes, like a swelling. Radha Robert MD [address] [facility],[address], [place], [address], [place] - [facility], 02/05/2021 10:21:06 09/01/2021 text/html She is here for annual exam, is doing well on her HRT and elects to continue. She has vasomotor symptoms if she misses a pill. 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 She is doing well on HRT and elects to continue. She will call when she needs more aristocort. Radha Robert MD [address] [facility],[address], [place], [address], [facility], 09/01/2021 11:25:06 11/08/2022 text/html This visit is a phone telehealth visit. The patient consented to the visit by phone. The patient was at home at the time of the call and the provider and patient were the only people on the line. I was at [address] [facility], [address], [place], at the time of the call. She is taking HRT and doing well on it, she would like continue. She has shira taking it for more than 12 years. She does have hot flashes if she forgets to take it. Radha Robert MD [address] [facility],[address], [place], [address], [facility], 11/08/2022 09:09:34 09/08/2023 text/html She is here for annual exam, is doing well on her HRT and elects to continue. She has vasomotor symptoms if she misses a pill. Radha Robert MD [address] [facility],[address], [place], [address], [facility], 09/08/2023 09:56:15 OBGyn Episode No OBEpisode recorded.
== END 2024-07-30 11:40 | disposition home or self-care (01) ==
LOC: HO.HMCFM 10:38
PROVIDERS: PCP Nurse Practitioner Family; Visit Provider Nurse Practitioner Family
DX: R27.0 Ataxia, unspecified (principal); Z76.89 Persons encountering health services in other specified circumstances; E78.2 Mixed hyperlipidemia; E28.319 Asymptomatic premature menopause; Z79.890 Hormone replacement therapy; Z80.3 Family history of malignant neoplasm of breast; M85.89 Other specified disorders of bone density and structure, multiple sites; E55.9 Vitamin D deficiency, unspecified; Z82.49 Family history of ischemic heart disease and other diseases of the circulatory system

== ENCOUNTER → 2024-07-30 10:37 | Outpatient (BNVA) | payer MEDICARE, SELFPAY | PROVIDERS: PCP Nurse Practitioner Family; Visit Provider Nurse Practitioner Family | DX: R27.0 Ataxia, unspecified (principal); E78.2 Mixed hyperlipidemia; E28.319 Asymptomatic premature menopause; M85.89 Other specified disorders of bone density and structure, multiple sites; E55.9 Vitamin D deficiency, unspecified; Z79.890 Hormone replacement therapy; Z80.3 Family history of malignant neoplasm of breast; Z82.49 Family history of ischemic heart disease and other diseases of the circulatory system | CPT/HCPCS: 96127 ==

== ENCOUNTER 2024-07-30 11:53 | Outpatient (REF) | payer MEDICARE, SELFPAY ==
[2024-07-30 14:31] LABS: Appearance Urine Clear; Color Urine Yellow; Glucose Urine UA Negative (Negative); Leukocyte Esterase Urine Trace (Negative); Nitrite Urine Negative (Negative); PH 5.5 (5.0-9.0); Specific Gravity - Urine <= 1.005 (1.005-1.025); UMIC TRIGGER UACC YES; Urine Blood Negative (Negative); Urine Ketones Negative (Negative); Urine Protein Negative (Neg-Trace)
[2024-07-30 14:38] LABS: Bacteria Urine None Seen (None Seen); Hyaline Casts Urine 0-2 /LPF (0-2); RBC Urine 0-2 /HPF (0-2); Squamous Epithelial Cell Urine 0-2 /HPF (0-2); WBC Urine 0-5 /HPF (0-5)
[2024-07-30 14:45] LABS: Hematocrit 39.5 % (37.0-47.0); Hemoglobin 13.1 g/dl (12.0-16.0); Mean Corpuscular HGB Conc 33.2 g/dl (31.0-35.0); Mean Corpuscular Hemoglobin 31.6 pg (27.0-33.0); Mean Corpuscular Volume 95.2 fL (80.0-98.0); Mean Platelet Volume 9.8 fL (9.4-12.3); Platelet Count 247 X10*3/uL (160-400); Red Blood Count 4.15 X10*6/uL (4.20-5.50); Red Cell Distribution Width 13.2 % (11.0-16.0); White Blood Count 4.8 X10*3/uL (4.8-10.8)
[2024-07-30 15:08] LABS: Alanine Aminotransferase 18 U/L (0-31); Albumin Level 4.5 g/dL (3.5-5.0); Anion Gap 12 (12-20); Aspartate Amino Transferase 24 U/L (5-31); Bilirubin Total 0.4 mg/dL (0.0-1.0); Blood Urea Nitrogen 14 mg/dL (9-16); Calcium 9.3 mg/dL (8.4-10.2); Carbon Dioxide 28 mmol/L (22-29); Chloride 104 mmol/L (96-108); Cholesterol 248 mg/dL (<200); Estimated Glomerular Filt Rate > 60; Glucose Random 94 mg/dL (60-115); HDL Cholesterol 87 mg/dL (>40); Iron 94 mcg/dL (30-160); LDL Cholesterol Calculated 144 mg/dL (<100); Percent Iron Saturation 30 % (15-50); Potassium 4.5 mmol/L (3.3-5.1); Sodium 139 mmol/L (135-145); Total Iron Binding Capacity 311 mcg/dL (228-428); Total Protein 7.3 g/dL (6.5-8.0); Triglycerides 87 mg/dL (<150); Unsaturated Iron Binding 217 ug/dL
[2024-07-30 15:22] LABS: Creatinine Urine 24.54 mg/dL; Microalbumin Urine < 5.0 mg/L
[2024-07-30 15:34] LABS: Folate 10.5 ng/mL (> or = 4.0); Vitamin B12 403 pg/mL (200-900)
[2024-07-30 15:35] LABS: Estimated Average Glucose 108 mg/dL; Hemoglobin A1C 121.9044 umol/L; Hemoglobin A1c % 5.4 % (<6.0); Total Hemoglobin (HGBA1C) 3440.5459 umol/L
[2024-07-30 15:39] LABS: Ferritin 80 ng/mL (10-250); TSH reflex Free T4 2.22 uIU/mL (0.32-4.0); Vitamin D 25-OH Total 50.9 ng/mL (>30)
[2024-07-30 16:59] LABS: Alkaline Phosphatase 35 U/L (39-117)
== END 2024-07-30 11:54 | disposition home or self-care (01) ==
LOC: HO.WFDLDS 11:53
PROVIDERS: Visit Provider Nurse Practitioner Family
DX: R27.0 Ataxia, unspecified (principal); E78.2 Mixed hyperlipidemia; E28.319 Asymptomatic premature menopause; M85.89 Other specified disorders of bone density and structure, multiple sites; E55.9 Vitamin D deficiency, unspecified; Z79.890 Hormone replacement therapy; Z80.3 Family history of malignant neoplasm of breast; Z82.49 Family history of ischemic heart disease and other diseases of the circulatory system; Z13.1 Encounter for screening for diabetes mellitus; Z13.6 Encounter for screening for cardiovascular disorders
CPT/HCPCS: 36415; 80053; 80061; 81001; 82043; 82306; 82570; 82607; 82728; 82746; 83036; 83540; 84443; 85027; 96127; 99202

== ENCOUNTER 2024-08-01 15:30 | Outpatient (REF) | payer MEDICARE, BC, SELFPAY ==
--- OUTSIDE RECORDS SUMMARY | 2024-08-01 16:04 | XMS_ITS | Data Portability ---
Author Organization [place] - [facility],, RADHA ROBERT MD Address [address] [address] Care Team Providers Care Supervisor Model Making Name Role Phone BRIAN LEMOS Primary Care Provider Assessment No assessment recorded. Plan of Treatment [...] Go To The Location Of Their Choice, [id number] 09/14/2023 10:07:31 pap test, thinprep , cervical 2021 [email or web address], [address] [place] [address], [address], 09/15/2021 07:40:42 Referral None recorded . Procedures None recorded . Surgeries None recorded . Imaging MAMMO, screenin g, digital, bilatera l - Breast Aspirati on and/or Biopsy if needed 2023 024 [facility], [address], [place], [address], 01/17/2024 10:47:14 bone density 2023 024 [facility] Orders, [address], [address], [place], [address], 09/08/2023 11:45:52 MAMMO, screenin g, digital, bilatera l 2021 022 [facility] ([facility]), [address] [place], [address], 11/26/2021 09:43:36 bone density 2021 022 [facility] ([facility]), [address] [place], [address], 08/28/2023 07:20:08 Medication Orders medroxyp rogester one 2.5 mg tablet 2023 024 [facility]armacy #[facility], [address] [place] [address], [address], 09/08/2023 09:55:42 estradio l 1 mg tablet 2023 024 [facility] #[facility], [address] [place] [address], [address], 09/08/2023 09:55:41 estradio l 1 mg tablet 2022 023 [facility] #[facility], [address] [place] [address], [address], 11/08/2022 08:46:23 medroxyp rogester one 2.5 mg tablet 2022 023 [facility] #[facility], [address] [place] [address], [address], 11/08/2022 08:46:23 estradio l 1 mg tablet 2021 022 [facility]Ph[facility] #[facility], [address] [place] [address], [address], 09/01/2021 11:25:06 medroxyp rogester one 2.5 mg tablet 2021 022 [facility]armacy #[id number], [address] [place], [address], 09/01/2021 11:25:06 Patient TargetsNo targets recorded. Patient Instructions Encounter Date Encounter Id Patient Instructions Last Modified By Organization Details Last Modified Time 02/03/2021 [id number] This visit is a phone telehealth visit. The patient consented to the visit by phone. The patient was at home at the time of the call and the provider and patient were the only people on the line. I was at [address] [place] [address], [address], [place], at the time of the call. [...] 20 minutes. Not available 02/03/2021 09:53:13 02/05/2021 [id number] costochondritis: care instructions [email or web address] Not available 02/05/2021 [...] minutes kanwal Not available 02/05/2021 09:41:45 09/01/2021 [id number] atrophic vaginit is: care instructions Not available [...] time postmenopausally. Not available 09/01/2021 11:24:26 11/08/2022 [id number] This visit is a phone telehealth visit. The patient consented to the visit by phone. The patient was at home at the time of the call and the provider and patient were the only people on the line. I was at [address] [place] [address], [facility] [address], [place], at the time of the call. [...] 12 minutes. Not available 11/08/2022 08:52:52 09/08/2023 [id number] atrophic vaginit is: care instructions Not available [...] Detail LastModifiedTime 09/02/19 22 09/01/2021 PAP1C ASE [id number] ThinP rep Pap, Image d: NEGAT СЕРГЕЙ FOR SQUAM OUS INTRA EPITH ELIAL LESIO N AND CHAPARRO KATCY . React сергей cellu bk bauer es. [place] blanca estro gen for patie nt's age [...] 6/8/2 0 neg. [z12. 4] Not Available [facility], Cytopathology Service [address] [facility], [place], [address], 09/10/2021 10:11:13 09/08/19 24 09/14/2023 IGP, RFX APTIM A HPV ASCU diagnosis: Commen t NEGAT СЕРГЕЙ FOR INTRA EPITH ELIAL LESIO N OR MALIG DRE . THIS SPECI MEN WAS RESCR EENED PART OF OUR QUALI TY CONTR OL PROGR AM. Not Available [facility] ([facility]) [address] [place], [address], 09/14/2023 10:07:31 09/08/19 24 09/14/2023 IGP, RFX APTIM A HPV ASCU specimen adequacy: Kenzie timmons Satis facto ry for evalu ation . Endoc ervic al and/o r squam ous metap lasti c cells (endo cervi schuyler compo nent) are prese nt. Not Available [facility] ([facility]) [address] [place], [address], 09/14/2023 10:07:31 09/08/19 24 09/14/2023 IGP, RFX APTIM A HPV ASCU clinician provided ICD10: Kenzie timmons Z12.4 Not Available [facility] ([facility]) [address] [place], [address], 09/14/2023 10:07:31 09/08/19 24 09/14/2023 IGP, RFX APTIM A HPV ASCU performed by: Kenzie andrews, Cytot echno logis t (ASCP ) Not Available [facility] ([facility]) [address] [place], [address], 09/14/2023 10:07:31 09/08/19 24 09/14/2023 IGP, RFX APTIM A HPV ASCU QC reviewed by: Kenzie Crain, Cytot echno logis t (ASCP ) Not Available [facility] ([facility]) [address] [place], [address], 09/14/2023 10:07:31 09/08/19 24 09/14/2023 IGP, RFX APTIM A HPV ASCU . . Not Available [facility] ([facility]) [address] [place], [address], 09/14/2023 10:07:31 09/08/19 24 09/14/2023 IGP, RFX [...] ts do occur . Not Available [facility] ([facility]) [address], [place], [address], 09/14/2023 10:07:31 09/08/19 24 09/14/2023 IGP, RFX APTIM A HPV ASCU test methodology: Commen t This liqui d based ThinP rep(R ) pap test was scree kirill with the use of an image guide d syste m. Not Available [facility] ([facility]) [address], [place], [address], 09/14/2023 10:07:31 09/08/19 24 09/14/2023 IGP, RFX APTIM A HPV ASCU . Commen t The HPV DNA refle x crite gabino were not met with this speci men resul t there fore, no HPV testi ng was perfo rmed. Not Available [facility] ([facility]) [address], [place], [address], 09/14/2023 10:07:31 02/03/20 21 02/02/2021 bone densi [...] bilat eral No observ ation record ed. [facility] [address] [place], [address], 01/11/2023 11:41:52 01/17/20 24 01/17/2024 MAMMO , paulino osoriog, digit al, bilat eral No observ ation record ed. [facility] [address] [place], [address], 01/17/2024 11:09:55 Result Notes None recorded. Problems Name Problem SNOMED Code Status Onset Date Resolution Date Notes Provider Name and Address Organization Details Recorded Time Atrophic vulvovaginitis 12192743 Active Radha Robert MD [address], [place], [address], [place] [facility], 6 08:14:33 Lichen sclerosus et atrophicus Active Radha Robert MD [address], [place], [address], [place] [facility], 6 08:14:33 Menopausal syndrome 819907462 Active Radha Robert MD [address], [place], [address], [place] [facility], 6 09:57:18 Osteopenia 624424929 Active 2020 Radha Robert MD [address], [address], [place] [facility], 09:33:40 Breast lump 89766355 Active 2020 Radha Robert MD [address], [place], [address], [place] [facility], 09:33:50 Problem Notes None recorded. Procedures Surgical History Date Name Laterality Status Provider Name and Address Organization Details Recorded Time 1 Most Recent Mammogram completed Heidy Parr [facility], 08/25/2021 09:49:05 9 Most Recent Bone Density completed Heidy Bee in [facility], 09/02/2019 10:16:07 5 Caesarean Section completed Heidy Naidu [place] - [facility], 11/11/2011 08:06:14 Imaging Results Imaging Date Name Status LastModified by [facility] Details LastModified Time 02/02/2021 bone density completed Information not available 02/03/2021 09:18:06 03/13/2018 bone density completed Information not available 02/02/2021 14:02:29 11/26/2021 MAMMO, screening, digital, bilateral completed Information not available 11/26/2021 09:50:25 01/11/2023 MAMMO, screening, digital, bilateral [facility] [address], [address], 01/11/2023 11:41:52 01/17/2024 MAMMO, screening, digital, bilateral completed [facility] [address], [address], 01/17/2024 11:09:55 Procedure Notes None recorded. Medical [...] Address Organization Details Last Updated DateTime 1 66293.5 2 g 24.6 kg/m2 161.29 cm 97.5 [degF] 76 /min 116 mm[Hg] 66 mm[Hg] Ronda Tillman [place] [facility], 1 09:15:43 Date Recorded Body height Body mass index (BMI) Body weight Heart rate Body temperature Systolic blood pressure Diastolic blood pressure Provider Name and Address Organization Details Last Updated DateTime 2 161.29 cm 24.2 kg/m2 40105.9 g 84 /min 97.2 [degF] 111 mm[Hg] 59 mm[Hg] Heidy Naidu [place] - [facility], 2 09:33:04 Date Recorded Body temperature Body height Body mass index (BMI) Body weight Heart rate Systolic blood pressure Diastolic blood pressure Provider Name and Address Organization Details Last Updated DateTime 4 97.6 [degF] 162.56 cm 24.2 kg/m2 99551.5 2 g 89 /min 123 mm[Hg] 55 mm[Hg] harshil hager [place] - [facility], 4 09:32:17 Social History Question Answer Notes LastModified by Organizat ion Details LastModified Time Tobacco Smoking Status Never Smoker Not Available [email or web address] 01/28/2020 03:19:37 What Is Your Level Of Alcohol Consumption? None [email or web address] Information not available 02/05/2021 What Is Your Level Of Caffeine Consumption? Moderate [id number] Information not available 01/28/2020 In The 14 [...] Type Of Diet Are You Following? REGULAR [id number] Information not available 01/28/2020 Which Illicit Or Recreational Drugs Have You Used? No [id number] Information not available 01/28/2020 Do You Reside In Or Have You Traveled To An Area Where Ebola Virus Transmission Is Active? No [id number] Information not available 01/28/2020 Do You Or Have You Ever Used E-cigarettes Or Vape? Never Used Electronic Cigarettes [id number] Information not available 01/28/2020 Education Post Graduate Information not available 11/11/2011 What Is The Highest Grade Or Level Of School You Have Completed Or The Highest Degree You Have Received? [id number] Information not available 11/20/2020 Who Is Your [...] Of Your Most Recent Tobacco Screening? 09/08/2023 [email or web address] Information not available 09/08/2023 What Is Your Relationship Status? Information not available 09/01/2021 Are You Sexually Active? No [id number] Information not available 01/28/2020 Do You Or Have You Ever Used Smokeless Tobacco? Never Used Smokeless Tobacco [id number] Information not available 01/28/2020 How Much Tobacco Do You Smoke? No [id number] Information not available 01/28/2020 General Stress Level Low Information not available 09/01/2021 Do You Feel Stressed (tense, Restless, Nervous, Or Anxious, Or Unable To Sleep At Night)? [id number] Information not available 11/20/2020 Do You Use Any Illicit Or Recreational Drugs? No Information not available 11/20/2020 How Many Years Have You Smoked Tobacco? 0 [id number] Information not available 01/28/2020 Have You Recently [...] Time What is your exercise level? Occasional [id number] Information not available 01/28/2020 Mental Status None [...] previo usly record ed as Heart Attack ([place]) Not available 06/11/2015 08:11:32 Notes:does not want [...] mL dose 06/02/2020 completed JOSIANE Rea in [facility], 11/20/2020 09:42:06 COVID-19, mRNA, LNP-S, PF, 30 mcg/0.3 mL dose 05/15/2020 completed JOSIANE Su in [facility], 02/05/2021 09:16:20 COVID-19, mRNA, LNP-S, PF, 30 mcg/0.3 mL dose 01/01/2021 completed JOSIANE Su in [facility], 02/05/2021 09:16:43 Past Encounters Encounter ID Performer Location Encounter Start Date Encounter Closed Date Diagnosis/Indication Diagnosis SNOMED-CT Code Diagnosis ICD10 Code Diagnosis Note [id number] MD RADHA Jason MD [facility] [place] [address] [facility] [place] [address] 11/11/2011 07:44:17 11/11/2011 13:05:11 [id number] MD RADHA Jason MD [facility] [place] [address] [facility] [place] [address] 12/04/2012 07:38:55 12/04/2012 13:36:13 [id number] MD RADHA Jason MD [address] [place] [address],[address] [place] [address] 05/14/2014 08:04:14 05/14/2014 09:05:32 Specialized medical examination 71044366 Screening for malignant neoplasm of rectum 537647241 Screening mammography 45787313 [id number] MD RADHA Jason MD [address] [facility] [place] [address] 06/11/2015 07:51:43 06/11/2015 10:43:28 Screening for malignant neoplasm of cervix 156273207 Z12.4 Screening mammography 24 773648 Z12.31 Menopausal syndrome 1237 83747 N95.9 [id number] MD RADHA Jason MD [address] [facility] [place] [address] 06/24/2016 13:00:18 06/24/2016 14:38:26 Screening for malignant neoplasm of cervix 995084498 Z12.4 Screening mammography 24 444195 Z12.31 Cares for self 582754981 Z76.89 [id number] MD RADHA Jason MD [address] [place] [address] [place] [address] 07/06/2017 13:18:57 07/06/2017 14:46:33 Screening for malignant neoplasm of cervix 704481052 Z12.4 Screening mammography 24 448804 Z12.31 Lichen scl erosus et atrophicus 21832074 L90.0 [id number] MD RADHA Jason MD [address] [place] [address] [place] [address] 09/02/2019 10:06:05 09/02/2019 11:28:38 Screening for malignant neoplasm of cervix 186240485 Z12.4 Screening mammography 24 857639 Z12.31 Menopausal syndrome 1237 08390 N95.1 [id number] MD RADHA Jason MD [address] [place] [address],[facility] [place] [place] [address] 11/20/2020 09:40:11 11/20/2020 12:41:18 Menopausal syndrome 864220782 N95.1 Atrophic vulvovaginitis 18650528 N95.2 [id number] MD RADHA Jason MD [address] [place] [address] [place] [address] 02/03/2021 09:13:28 02/03/2021 09:56:29 Osteopenia 271761813 M85.852 Breast lump 42077180 N63 .0 [id number] MD RADHA Jason MD [address] [place], [place] [address] [address] 02/05/2021 09:06:58 02/05/2021 10:26:06 Anterior chest wall pain 308797796 R07.89 Costal chondritis 394903 04 M94.0 Breast lump 67010084 N63 .23 [id number] MD RADHA JasonAN MD [address] [facility] [place] [address] 09/01/2021 09:25:15 09/01/2021 11:29:10 Screening for malignant neoplasm of cervix 919120280 Z12.4 Screening mammography 24 757828 Z12.31 Screening for osteoporosis 190163768 N95.8 Menopausal syndrome 1237 45495 N95.8 [id number] MD RADHA Jason MD [address] [place] [address],[facility] [place] [address] 11/08/2022 08:38:37 11/08/2022 10:22:46 Menopausal syndrome 380720789 N95.8 [id number] MD RADHA Jason MD [address] [facility], [place] [address] 09/08/2023 09:28:39 09/08/2023 11:45:52 Screening for malignant neoplasm of cervix 227860491 Z12.4 Screening mammography 24 939653 Z12.31 Screening for osteoporosis 369630315 N95.8 Menopausal syndrome 1237 73736 N95.8 Health Concerns Section Related Observation LastModified by Organization Detai ls LastModified Time None Recorded Concern Status LastModified by Organization Details LastModified Time None Recorded Advance Directives Directive None Recorded Payers Encounter Date Sequence Insurance Name Policy Number Policy Schaffer Covered Member ID Schaffer Member ID Guarantor Name 02/03/2021 2 [place] Nasir aLwson [id number] Chelsey Drugan 02/03/2021 1 [place] Chelsey A Drugan [id number] Chelsey Drugan 02/05/2021 2 [place] Nasir Lawson [id number] Chelsey Drugan 02/05/2021 1 [place] Chelsey A Drugan [id number] Chelsey Drugan 09/01/2021 2 [place] Nasir Lawson [id number] Chelsey Drugan 09/01/2021 1 [place] Chelsey Ngo Drugan [id number] Chelsey Drugan 11/08/2022 2 [place] Nasir Lawson [id number] Chelsey Drugan 11/08/2022 1 [place] [facility] G[facility]MENT SERVICES Chelsey A Drugan [id number] Chelsey Drugan 09/08/2023 2 [place] Nasir Lawson [id number] Chelsey Drugan 09/08/2023 1 [place] [facility] Chelsey Ngo Drugan [id number] Chelsey Drugan Notes Date Note Type Note Provider Name and Address Organization Details Recorded Time 02/03/2021 text/html This visit is a phone telehealth visit. The patient consented to the visit by phone. The patient was at home at the time of the call and the provider and patient were the only people on the line. I was at [address] [place] [address], [facility] [address], [place], [place], at the time of the call. [...] 10/2020 was negative. Radha Robert MD [address] [facility],[address], [place], [address], [employer] [facility], 02/03/2021 [...] like a swelling. Radha Robert MD [address] [facility],[address], [place], [address], [place] [facility] [...] needs more aristocort. Radha Robert MD [address] [facility],[address], [place], [address], [facility] - [facility], 09/01/2021 11:25:06 11/08/2022 text/html This visit is a phone telehealth visit. The patient consented to the visit by phone. The patient was at home at the time of the call and the provider and patient were the only people on the line. I was at [address] [facility], [address], [place], at the time of the call. She is taking HRT and doing well on it, she would like continue. She has shira taking it for more than 12 years. She does have hot flashes if she forgets to take it. Radha Robert MD [address] [facility],[address], [place], [address], [facility] - [facility], 11/08/2022 09:09:34 09/08/2023 text/html She is here for annual exam, is doing well on her HRT and elects to continue. She has vasomotor symptoms if she misses a pill. Radha Robert MD [address] [facility],[address], [place], [address], [facility] - [facility], 09/08/2023 09:56:15 OBGyn Episode No OBEpisode recorded.
[2024-08-05 13:18] LABS: Zinc 60 mcg/dL (60-130)
== END 2024-08-01 15:31 | disposition home or self-care (01) ==
LOC: HO.LAB 15:30
PROVIDERS: PCP Nurse Practitioner Family; Visit Provider Nurse Practitioner Family
DX: R74.8 Abnormal levels of other serum enzymes (principal); H55.00 Unspecified nystagmus
CPT/HCPCS: 36415; 83735; 84630

== ENCOUNTER → 2024-08-04 12:43 | Outpatient (BNV) | payer MEDICARE, BC, SELFPAY | PROVIDERS: PCP Nurse Practitioner Family; Visit Provider Radiology Diagnostic Radiology | DX: R27.0 Ataxia, unspecified (principal) | CPT/HCPCS: 70553 ==

== ENCOUNTER 2024-08-04 12:47 | Outpatient (REF) | payer MEDICARE, BC, SELFPAY ==
--- NOTE | ~2024-08-04 | MR_ITS ---
CLINICAL HISTORY: R27.0 - Ataxia, unspecified --- Additional Notes or Special Instructions: ataxia, l eft lateral nystagmus, visual blurring w pronation of head, MRI Brain Without and with Contrast: Comparison: None Findings: No masses. No restricted diffusion or vasogenic edema. The ventricles are symmetric. No enhancing lesions. Posterior fossa and cerebellar pontine angles are unremarkable. Vestibular nerve complexes are normal. Mastoid air cells and middle ear cavities are clear. Basal ganglia are unremarkable Mass effect: No shift in midline structures Intracranial bleeding: No intraparenchymal bleeding or abnormal extra axial blood fluid collections Pituitary: Normal in size Visualized sinuses: Clear Orbital structures: Unremarkable Calvarium: There is no abnormal meningeal thickening or nodularity Impression: Unremarkable MRI of the brain. This document has been electronically signed by: Anoop Serna MD on 08/04/2024 15:07:25
--- OUTSIDE RECORDS SUMMARY | 2024-08-04 12:50 | XMS_ITS | Data Portability ---
Author Organization [place] - 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 Procedures None recorded . Surgeries None recorded . Imaging MAMMO, screenin g, digital, bilatera l - Breast Aspirati on and/or Biopsy if needed 2023 024 [facility] Orders, [address], [place], [address], 01/17/2024 10:47:14 bone density 2023 024 [facility], [address], [address], [place], [address], 09/08/2023 11:45:52 MAMMO, screenin g, digital, bilatera l 2021 022 [facility] ([facility]), [address] [place], [address], 11/26/2021 09:43:36 bone density 2021 022 [facility] ([facility]), [address] [place], [address], 08/28/2023 07:20:08 Medication Orders medroxyp rogester one 2.5 mg tablet 2023 024 [facility]/Pharmacy #[facility]ly [facility], [address] [place] [address], [address], 09/08/2023 09:55:42 estradio l 1 mg tablet 2023 024 [facility]/Pharmacy #[facility]ly [facility], [address] [place] [address], [address], 09/08/2023 09:55:41 estradio l 1 mg tablet 2022 023 [facility]/Pharmacy #[facility]ly [facility], [address] [place] [address], [address], 11/08/2022 08:46:23 medroxyp rogester one 2.5 mg tablet 2022 023 [facility]/Pharmacy #[facility]ly [facility], [address] [place] [address], [address], 11/08/2022 08:46:23 estradio l 1 mg tablet 2021 022 [facility]/Pharmacy #[facility]ly [facility], [address] [place] [address], [address], 09/01/2021 11:25:06 medroxyp rogester one 2.5 mg tablet 2021 022 [facility]armacy #[id number], [address] [place], [address], 09/01/2021 11:25:06 Patient TargetsNo targets recorded. Patient Instructions Encounter Date Encounter Id Patient Instructions Last Modified By Organization Details Last Modified Time 02/03/2021 [id number] This visit is a phone telehealth visit. The patient consented to the visit by phone. The patient was at home at the time of the call and the provider and patient were the only people on the line. I was at [address] [place] [address], [address], [place], at the time of the call. [...] 20 minutes. Not available 02/03/2021 09:53:13 02/05/2021 [id number] costochondritis: care instructions [email or web address] Not available 02/05/2021 [...] minutes kanwal Not available 02/05/2021 09:41:45 09/01/2021 [id number] atrophic vaginit is: care instructions Not available [...] time postmenopausally. Not available 09/01/2021 11:24:26 11/08/2022 [id number] This visit is a phone telehealth visit. The patient consented to the visit by phone. The patient was at home at the time of the call and the provider and patient were the only people on the line. I was at [address] [place] [address], [facility] [address], [place], at the time of the call. [...] 12 minutes. Not available 11/08/2022 08:52:52 09/08/2023 [id number] atrophic vaginit is: care instructions Not available [...] Detail LastModifiedTime 09/02/19 22 09/01/2021 PAP1C ASE [id number] ThinP rep Pap, Image d: NEGAT СЕРГЕЙ FOR SQUAM OUS INTRA EPITH ELIAL LESIO N AND CHAPARRO KATCY . React сергей cellu bk bauer es. [place] blanca estro gen for patie nt's age [...] 6/8/2 0 neg. [z12. 4] Not Available [facility], Cytopathology Service [address] [facility], [place], [address], 09/10/2021 10:11:13 09/08/19 24 09/14/2023 IGP, RFX APTIM A HPV ASCU diagnosis: Commen t NEGAT СЕРГЕЙ FOR INTRA EPITH ELIAL LESIO N OR MALIG DRE . THIS SPECI MEN WAS RESCR EENED PART OF OUR QUALI TY CONTR OL PROGR AM. Not Available [facility] ([facility]) [address] [place], [address], 09/14/2023 10:07:31 09/08/19 24 09/14/2023 IGP, RFX APTIM A HPV ASCU specimen adequacy: Kenzie timmons Satis facto ry for evalu ation . Endoc ervic al and/o r squam ous metap lasti c cells (endo cervi schuyler compo nent) are prese nt. Not Available [facility] ([facility]) [address] [place], [address], 09/14/2023 10:07:31 09/08/19 24 09/14/2023 IGP, RFX APTIM A HPV ASCU clinician provided ICD10: Kenzie timmons Z12.4 Not Available [facility] ([facility]) [address] [place], [address], 09/14/2023 10:07:31 09/08/19 24 09/14/2023 IGP, RFX APTIM A HPV ASCU performed by: Kenzie andrews, Cytot echno logis t (ASCP ) Not Available [facility] ([facility]) [address] [place], [address], 09/14/2023 10:07:31 09/08/19 24 09/14/2023 IGP, RFX APTIM A HPV ASCU QC reviewed by: Kenzie Crain, Cytot echno logis t (ASCP ) Not Available [facility] ([facility]) [address] [place], [address], 09/14/2023 10:07:31 09/08/19 24 09/14/2023 IGP, RFX APTIM A HPV ASCU . . Not Available [facility] ([facility]) [address] [place], [address], 09/14/2023 10:07:31 09/08/19 24 09/14/2023 IGP, RFX [...] ts do occur . Not Available [facility] ([facility]) [address], [place], [address], 09/14/2023 10:07:31 09/08/19 24 09/14/2023 IGP, RFX APTIM A HPV ASCU test methodology: Commen t This liqui d based ThinP rep(R ) pap test was scree kirill with the use of an image guide d syste m. Not Available [facility] ([facility]) [address], [place], [address], 09/14/2023 10:07:31 09/08/19 24 09/14/2023 IGP, RFX APTIM A HPV ASCU . Commen t The HPV DNA refle x crite gabino were not met with this speci men resul t there fore, no HPV testi ng was perfo rmed. Not Available [facility] ([facility]) [address], [place], [address], 09/14/2023 10:07:31 02/03/20 21 02/02/2021 bone densi [...] bilat eral No observ ation record ed. [facility] [address] [place], [address], 01/11/2023 11:41:52 01/17/20 24 01/17/2024 MAMMO , paulino osoriog, digit al, bilat eral No observ ation record ed. [facility] [address] [place], [address], 01/17/2024 11:09:55 Result Notes None recorded. Problems Name Problem SNOMED Code Status Onset Date Resolution Date Notes Provider Name and Address Organization Details Recorded Time Atrophic vulvovaginitis 55244381 Active Radha Robert MD [address], [place], [address], [place] [facility], 6 08:14:33 Lichen sclerosus et atrophicus Active Radha Robert MD [address], [place], [address], [place] [facility], 6 08:14:33 Menopausal syndrome 338260188 Active Radha Robert MD [address], [place], [address], [place] [facility], 6 09:57:18 Osteopenia 228637058 Active 2020 Radha Robert MD [address], [address], [place] [facility], 09:33:40 Breast lump 85182249 Active 2020 Radha Robert MD [address], [place], [address], [place] [facility], 09:33:50 Problem Notes None recorded. Procedures Surgical History Date Name Laterality Status Provider Name and Address Organization Details Recorded Time 1 Most Recent Mammogram completed Heidy Parr [facility], 08/25/2021 09:49:05 9 Most Recent Bone Density completed Heidy Bee in [facility], 09/02/2019 10:16:07 5 Caesarean Section completed Heidy Naidu [place] - [facility], 11/11/2011 08:06:14 Imaging Results Imaging Date Name Status LastModified by [facility] Details LastModified Time 02/02/2021 bone density completed Information not available 02/03/2021 09:18:06 03/13/2018 bone density completed Information not available 02/02/2021 14:02:29 11/26/2021 MAMMO, screening, digital, bilateral completed Information not available 11/26/2021 09:50:25 01/11/2023 MAMMO, screening, digital, bilateral [facility] [address], [address], 01/11/2023 11:41:52 01/17/2024 MAMMO, screening, digital, bilateral [facility] [address], [address], 01/17/2024 11:09:55 Procedure Notes None recorded. Medical [...] Address Organization Details Last Updated DateTime 1 97027.5 2 g 24.6 kg/m2 161.29 cm 97.5 [degF] 76 /min 116 mm[Hg] 66 mm[Hg] Ronda Tillman [place] [facility], 1 09:15:43 Date Recorded Body height Body mass index (BMI) Body weight Heart rate Body temperature Systolic blood pressure Diastolic blood pressure Provider Name and Address Organization Details Last Updated DateTime 2 161.29 cm 24.2 kg/m2 66449.9 g 84 /min 97.2 [degF] 111 mm[Hg] 59 mm[Hg] Heidy Naidu [place] - [facility], 2 09:33:04 Date Recorded Body temperature Body height Body mass index (BMI) Body weight Heart rate Systolic blood pressure Diastolic blood pressure Provider Name and Address Organization Details Last Updated DateTime 4 97.6 [degF] 162.56 cm 24.2 kg/m2 02499.5 2 g 89 /min 123 mm[Hg] 55 mm[Hg] harshil hager [place] - [facility], 4 09:32:17 Social History Question Answer Notes LastModified by Organizat ion Details LastModified Time Tobacco Smoking Status Never Smoker Not Available [facility] 01/28/2020 03:19:37 What Is Your Level Of Alcohol Consumption? None [email or web address] Information not available 02/05/2021 What Is Your Level Of Caffeine Consumption? Moderate [id number] Information not available 01/28/2020 In The 14 [...] Type Of Diet Are You Following? REGULAR [id number] Information not available 01/28/2020 Which Illicit Or Recreational Drugs Have You Used? No [id number] Information not available 01/28/2020 Do You Reside In Or Have You Traveled To An Area Where Ebola Virus Transmission Is Active? No [id number] Information not available 01/28/2020 Do You Or Have You Ever Used E-cigarettes Or Vape? Never Used Electronic Cigarettes [id number] Information not available 01/28/2020 Education Post Graduate Information not available 11/11/2011 What Is The Highest Grade Or Level Of School You Have Completed Or The Highest Degree You Have Received? [id number] Information not available 11/20/2020 Who Is Your [...] Of Your Most Recent Tobacco Screening? 09/08/2023 [email or web address] Information not available 09/08/2023 What Is Your Relationship Status? Information not available 09/01/2021 Are You Sexually Active? No [id number] Information not available 01/28/2020 Do You Or Have You Ever Used Smokeless Tobacco? Never Used Smokeless Tobacco [id number] Information not available 01/28/2020 How Much Tobacco Do You Smoke? No [id number] Information not available 01/28/2020 General Stress Level Low Information not available 09/01/2021 Do You Feel Stressed (tense, Restless, Nervous, Or Anxious, Or Unable To Sleep At Night)? [id number] Information not available 11/20/2020 Do You Use Any Illicit Or Recreational Drugs? No Information not available 11/20/2020 How Many Years Have You Smoked Tobacco? 0 [id number] Information not available 01/28/2020 Have You Recently [...] Time What is your exercise level? Occasional [id number] Information not available 01/28/2020 Mental Status None [...] previo usly record ed as [place] Attack ([place]) Not available 06/11/2015 08:11:32 Notes:does not want to do br ca testing. 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 Y Depression N Lung Disease N Defects or Inherited Disease N History of Ovarian Cancer N BRCA testing in past N Anxiety Disorder N Arthritis N Infertility N History of Cancer N Endometriosis N Kidney or Bladder Problems N Thyroid Problems N GI Problems N Anemia N History of Breast Cancer N FERNANDA exposure N Osteopenia Y Psychiatric Illness N Diabetes N Headaches or Migraines N Asthma N Hepatitis N Heart Disease N Hypertension [...] mL dose 06/02/2020 completed JOSIANE Rea in [facility], 11/20/2020 09:42:06 COVID-19, mRNA, LNP-S, PF, 30 mcg/0.3 mL dose 05/15/2020 completed JOSIANE Su in [facility], 02/05/2021 09:16:20 COVID-19, mRNA, LNP-S, PF, 30 mcg/0.3 mL dose 01/01/2021 completed JOSIANE Su in [facility], 02/05/2021 09:16:43 Past Encounters Encounter ID Performer Location Encounter Start Date Encounter Closed Date Diagnosis/Indication Diagnosis SNOMED-CT Code Diagnosis ICD10 Code Diagnosis Note [id number] MD RADHA Jason MD [facility] [address] [place] [address] 11/11/2011 07:44:17 11/11/2011 13:05:11 [id number] MD RADHA Jason MD [facility] [employer] [address] [place] [address] 12/04/2012 07:38:55 12/04/2012 13:36:13 [id number] MD RADHA Jason MD [address] [place] [address],[address] [place] [address] 05/14/2014 08:04:14 05/14/2014 09:05:32 Specialized medical examination 53909959 Screening for malignant neoplasm of rectum 527367228 Screening mammography 83328875 [id number] MD RADHA Jason MD [address] [place] [address] 06/11/2015 07:51:43 06/11/2015 10:43:28 Screening for malignant neoplasm of cervix 928085919 Z12.4 Screening mammography 24 195639 Z12.31 Menopausal syndrome 1237 32083 N95.9 [id number] MD RADHA Jason MD [address] [place] [address] 06/24/2016 13:00:18 06/24/2016 14:38:26 Screening for malignant neoplasm of cervix 140591979 Z12.4 Screening mammography 24 224178 Z12.31 Cares for self 585087375 Z76.89 [id number] MD RADHA Jason MD [address] [place] [address] [place] [address] 07/06/2017 13:18:57 07/06/2017 14:46:33 Screening for malignant neoplasm of cervix 305263409 Z12.4 Screening mammography 24 985309 Z12.31 Lichen scl erosus et atrophicus 90268922 L90.0 [id number] MD RADHA Jason MD [address] [place] [address] [place] [address] 09/02/2019 10:06:05 09/02/2019 11:28:38 Screening for malignant neoplasm of cervix 964921284 Z12.4 Screening mammography 24 624873 Z12.31 Menopausal syndrome 1237 23650 N95.1 [id number] MD RADHA Jason MD [address] [place] [address],[facility] [address] 11/20/2020 09:40:11 11/20/2020 12:41:18 Menopausal syndrome 315256331 N95.1 Atrophic vulvovaginitis 44264133 N95.2 [id number] MD RADHA Jason MD [address] [place] [address] [place] [address] 02/03/2021 09:13:28 02/03/2021 09:56:29 Osteopenia 468038898 M85.852 Breast lump 29796371 N63 .0 [id number] MD RADHA Jason MD [address] [place], [place] [address] [address] 02/05/2021 09:06:58 02/05/2021 10:26:06 Anterior chest wall pain 104018081 R07.89 Costal chondritis 021412 04 M94.0 Breast lump 56183187 N63 .23 [id number] MD RADHA JasonAN MD [address] [facility] [place] [address] 09/01/2021 09:25:15 09/01/2021 11:29:10 Screening for malignant neoplasm of cervix 183998065 Z12.4 Screening mammography 24 473189 Z12.31 Screening for osteoporosis 806581929 N95.8 Menopausal syndrome 1237 45300 N95.8 [id number] MD RADHA Jason MD [address] [place] [address],[facility] [place] [address] 11/08/2022 08:38:37 11/08/2022 10:22:46 Menopausal syndrome 688061195 N95.8 [id number] MD RADHA Jason MD [address] [facility], [place] [address] 09/08/2023 09:28:39 09/08/2023 11:45:52 Screening for malignant neoplasm of cervix 205494214 Z12.4 Screening mammography 24 670769 Z12.31 Screening for osteoporosis 337810401 N95.8 Menopausal syndrome 1237 65200 N95.8 Health Concerns Section Related Observation LastModified by Organization Detai ls LastModified Time None Recorded Concern Status LastModified by Organization Details LastModified Time None Recorded Advance Directives Directive None Recorded Payers Encounter Date Sequence Insurance Name Policy Number Policy Schaffer Covered Member ID Schaffer Member ID Guarantor Name 02/03/2021 2 [place] Nasir Lawson [id number] Chelsey Drugan 02/03/2021 1 [place] Chelsey A Drugan [id number] Chelsey Drugan 02/05/2021 2 [place] Nasir Lawson [id number] Chelsey Drugan 02/05/2021 1 [place] Chelsey A Drugan [id number] Chelsey Drugan 09/01/2021 2 [place] Nasir Lawson [id number] Chelsey Drugan 09/01/2021 1 [place] Chelsey Ngo Drugan [id number] Chelsey Drugan 11/08/2022 2 [place] Nasir Lawson [id number] Chelsey Drugan 11/08/2022 1 [place] [facility] G[facility]ERNMENT SERVICES Chelsey A Drugan [id number] Chelsey Drugan 09/08/2023 2 [place] Nasir Lawson [id number] Chelsey Drugan 09/08/2023 1 [place] [facility] Chelsey Ngo Drugan [id number] Chelsey Drugan Notes Date Note Type Note Provider Name and Address Organization Details Recorded Time 02/03/2021 text/html This visit is a phone telehealth visit. The patient consented to the visit by phone. The patient was at home at the time of the call and the provider and patient were the only people on the line. I was at [address] [place] [address], [facility] [address], [place], [place], at the time of the call. [...] 10/2020 was negative. Radha Robert MD [address] [facility],[address], [place], [address], [place] [facility], 02/03/2021 [...] like a swelling. Radha Robert MD [address] [facility],[address], [place], [address], [place] [facility] [...] needs more aristocort. Radha Robert MD [address] [facility],[address], [place], [address], [facility] - [facility], 09/01/2021 11:25:06 11/08/2022 text/html This visit is a phone telehealth visit. The patient consented to the visit by phone. The patient was at home at the time of the call and the provider and patient were the only people on the line. I was at [address] [facility], [address], [place], at the time of the call. She is taking HRT and doing well on it, she would like continue. She has shira taking it for more than 12 years. She does have hot flashes if she forgets to take it. Radha Robert MD [address] [facility],[address], [place], [address], [facility] - [facility], 11/08/2022 09:09:34 09/08/2023 text/html She is here for annual exam, is doing well on her HRT and elects to continue. She has vasomotor symptoms if she misses a pill. Radha Robert MD [address] [facility],[address], [place], [address], [facility] - [facility], 09/08/2023 09:56:15 OBGyn Episode No OBEpisode recorded.
[2024-08-04] MEDS: gadobutroL 7.5 ML VIAL IVPUSH (13:33)
== END 2024-08-04 12:48 | disposition home or self-care (01) ==
LOC: HO.MRI 12:47
PROVIDERS: PCP Nurse Practitioner Family; Visit Provider Nurse Practitioner Family
DX: R27.0 Ataxia, unspecified (principal)
CPT/HCPCS: 70553; A9585

== ENCOUNTER 2024-08-14 10:17 | Outpatient (AMB) | payer MEDICARE, BC, SELFPAY ==
--- NOTE | 2024-08-14 10:22 | A.OFFPC_ITS ---
Vital Signs 08/14/24 10:25 Height 5 ft 4 in Weight 143 lb 6 oz BMI 24.6 BP 122/67 Blood Pressure Location Rt brachial Position Sitting Respiration 12 Pulse 75 Pulse Source Pulse Oximeter Temp 97.1 F Temp Source Oral Pulse Oximetry (%) 97 Oxygen Delivery Method Room Air Intake Visit Reasons: review imaging Intake Note: Follow up to review imaging Cell Geneticist Required: No Allergies No Known Allergies Allergy (Verified 08/14/24 10:23) Medication List - Last Reconciled 08/14/24 by LLOYD Cohn- calcium carbonate-vitamin D3 600 mg-10 mcg (400 unit) (Calcium 600 with Vitamin D3) tabs PO cholecalciferol (vitamin D3) 50 mcg PO DAILY estradiol 1 mg PO DAILY medroxyprogesterone 2.5 mg PO DAILY multivitamin with iron 1 tab PO DAILY zinc gluconate 30 mg PO DAILY Tobacco use date assessed: 08/14/24 Fall risk assessment: No Falls in past year Last assessed Fall Risk: 08/14/24 Dental Screening Dental Screen Date: 08/14/24 Did you have a dental visit in the last 12 months?: Yes Did you have a dental problem in the last 6 months where you did not have access to dental care?: No Was dental information given to patient?: Patient has dentist HPI HPI Comments History of Present Illness Details 74 y/o F with HLD, hepatic cyst, osteope charly, family hx breast ca in sister, family hx of CAD, palpitations (holter sinus tach 2022, echo and stress done), premature menopause, Vit d def SurgHx: bilat cataract removal, tonsillectomy, tubal ligation, c section x 2, 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 - She reports unsteadiness for several m onths, experiencing a general sense of imbalance, commonly when walking or gardening, with more consistent listing to the right, but not specifically related to positional changes. - Occasional dizziness is noted, but it is not severe enough to cause her to pause or sit. - The unsteadiness does not lead to fall s, except for a minor incident when she was jostled. Since the last visit, - Persistent symptoms, unchanged over ti me. - Brain MRI and labs normal: no B12 defi ciency, no significant anemia, normal liver function. - Alkaline phosphatase low, zinc normal but at low end (60). - History of low water and sodium intake . - No current zinc or iron supplementatio n. Review of Systems - Neurological: Reports feeling of unste adiness. - Musculoskeletal: Reports soreness in t he R arm/shoulder when reaching. - Cardiovascular: Denies any heart-relat ed issues. - Dietary: Reports low intake of salted foods; prefers non-sugary drinks. Exam: Awake alert NAD PERRLA, Left lateral nystagmus produces sx of head fullness , conjunctiva and sclera clear No carotid bruit Neck FROM RRR LS CTAB Normal strength, tone and reflexes,Oriented x 3, CN II-XI intact, CORTEZ x 4, normal speech, staggering gait, no pronator drift, no tremor Abnormal tandem gait unsteady bilat worse on the R, mildly + rhomberg Ext vasc intact. Results - Labs: - Normal vitamin B12 level - Slightly low blood count - Low alkaline phosphatase - Normal zinc level at 60 (low end) - Tests and Diagnostics: - Normal brain MRI - Labs: - Normal vitamin B12 level Discussion Notes During the visit, I explained the unsteadiness could likely be linked to zinc levels being at the low end of normal. I proposed a zinc supplementation for four months, repeat zinc levels thereafter, and see if the symptoms improve. I recommended using a women?s multivitamin with iron to potentially address slightly low blood counts. Discussed the importance of increasing fluid and sodium intake, and suggested sugar-free sodium-rich drinks such as Gatorade or Liquid IV. The patient voiced concerns about dietary intake, and I advised considering alternatives like magnesium rub for musculoskeletal discomfort. Assessment and Plan 1. Sensation of unsteadiness - Zinc 30 mg daily. - Repeat zinc levels in four months. - Drink sugar-free sodium-rich fluids. - Women?s multivitamin with iron. 2. Possible zinc deficiency - Zinc supplementation as above. - Adjust diet for nutrient support. 3. Slightly low blood count - Multivitamin with iron. - Re-check levels in four months. Patient Instructions - Take zinc supplement (30 mg daily) wit h food to prevent stomach upset. - Use a women?s multivitamin with iron, preferably at bedtime with a snack. - Increase fluid intake with sugar-free sodium-rich drinks. - Return to the clinic in four months fo r lab work. - Seek care if balance issues worsen or new symptoms arise. RTO 4 months to fu on ataxia, with repeat labs 1 week before Consent Patient was informed and verbally consented to the use of an ambient scribe for clinic note documentation during this visit. Total time spent caring for the patient today was 40 minutes. This includes time spent before the visit reviewing the chart, time spent during the visit, and time spent after the visit on documentation, reviewing laboratory results, diagnostic imaging, medications, performing a medically necessary evaluation, counseling on diagnoses, care coordination, ordering appropriate tests, ordering appropriate medications, review of tests performed by other providers, reporting test results with the patient, communication with other healthcare providers. [facility] Medical History (Updated 08/14/24 @ 12:37 by Sofie Barbosa [facility]) History of screening mammography (~12/2023) No pertinent past medical history Surgical History (Updated 07/30/24 @ 07:43 by LLOYD CohnFIONA) History of colonoscopy (~2022) Family History (Updated 07/30/24 @ 10:52 by Gale Pardo MA) Father Cardiovascular disease Throat cancer Sister Breast cancer Social History (Updated 07/30/24 @ 10:50 by Gale Pardo MA) Household Members: Spouse Both parents involved: No Caregiver staying overnight: No Housing: House Are you a primary acute care assistant to a significant other at home: No Do you presently have visiting nurse or other home services: No 75 years or older and lives alone: No Alcohol intake: never Patient Tobacco Use Status: Never used Tobacco e-Cigarette/Vaping Use: Never Used Second Hand Smoke Exposure: No service: No Current occupational status: retired Cognitive needs: No Hearing needs: No Vision needs: No Questionnaire Thrive Questionnaire Date Thrive assessed: 07/24/24 I am a: Patient What is your living situation today?: I have a steady place to live Within the past 12 months, did the food you bought not last and you didn't have the money to get more?: Never true Within the past 12 months, did you worry whether your food would run out before you got money to buy more?: Never true Do you have trouble paying for medicines?: No Do you have trouble getting transportation to medical appointments?: No Do you have trouble paying your heating and electricity bill?: No Do you have trouble taking care of your child, family member or friend?: No Do you have trouble with day-to-day activities such as bathing, preparing meals, shopping, managing finances, etc.?: No Are you currently unemployed and looking for a job?: No Are you interested in more education?: No Please select the resources that you would like help with: None Currently or been in a relationship where the following occur: No concerns reported THRIVE Score: 0 DILLON-7 AMB Questionnaire DILLON-7 Date DILLON - 7 assessed: 07/30/24 Source: Developed by Drs. Sanchez Shah, Sherri Mejia, Jaun Silva and colleagues, with an educational no from [email or web address]. Physical exam (Primary Care) Vital Signs: Last Vital Signs Temp 97.1 F 08/14/24 10:25 Pulse 75 08/14/24 10:25 Resp 12 08/14/24 10:25 BP 122/67 08/14/24 10:25 Pulse Ox 97 08/14/24 10:25 Oxygen Delivery Method Room Air 08/14/24 10:25 BMI result Body Mass Index 24.6 Tobacco/Smoking Status: Tobacco use Status Tobacco use date assessed 08/14/24 08/14/24 10:25 Patient Tobacco Use Status Never used Tobacco 08/14/24 10:22 e-Cigarette/Vaping Use Never Used 08/14/24 10:22 Thrive Assessment: Date of Thrive Assessment Date Thrive assessed 07/24/24 08/14/24 10:22 Currently or been in a relationship where the following occur: No concerns reported Results Reviewed Results Reviewed: Findings: No masses. No restricted diffusion or vasogenic edema. The ventricles are symmetric. No enhancing lesions. Posterior fossa and cerebellar pontine angles are unremarkable. Vestibular nerve complexes are normal. Mastoid air cells and middle ear cavities are clear. Basal ganglia are unremarkable Mass effect: No shift in midline structures Intracranial bleeding: No intraparenchymal bleeding or abnormal extra axial blood fluid collections Pituitary: Normal in size Visualized sinuses: Clear Orbital structures: Unremarkable Calvarium: There is no abnormal meningeal thickening or nodularity Impression: Unremarkable MRI of the brain. This document has been electronically signed by: Anoop Serna MD on 08/04/2024 15:07:25 Coding Level of Care Code Est Pt Level 5 (99782) Complex EM visit Add On G2211 Diagnoses Ataxia R27.0 Low serum alkaline phosphatase R74.8 Low zinc level E60 Nystagmus H55.00 Assessment & Plan Assessment & Plan (1) Ataxia: Code(s): R27.0 - Ataxia, unspecified Category: Medical (2) Low serum alkaline phosphatase: Code(s): R74.8 - Abnormal levels of other serum enzymes Category: Medical (3) Low zinc level: Code(s): E60 - Dietary zinc deficiency Category: Medical (4) Nystagmus: Code(s): H55.00 - Unspecified nystagmus Category: Medical Plan . Orders: Orders Zinc 4 Months R27.0 - Ataxia, unspecified, R74.8 - Abnormal levels of other serum enzymes Complete Blood Count no Diff 4 Months R27.0 - Ataxia, unspecified, R74.8 - Abnormal levels of other serum enzymes Comprehensive Met. Panel 4 Months R27.0 - Ataxia, unspecified, R74.8 - Abnormal levels of other serum enzymes Medications: New zinc gluconate 30 mg PO DAILY 90 tabs 1RF multivitamin with iron 1 tab PO DAILY 90 tabs 0RF
[2024-08-14 10:25] VITALS: BP 122/67; PULSE 75; RESP 12; TEMP 36.2; O2SAT 97; BMI 24.6
--- OUTSIDE RECORDS SUMMARY | 2024-08-14 11:49 | XMS_ITS | Data Portability ---
Author Organization [place] - [facility],, RADHA ROBERT MD Address [address] [address] Care Team Providers Care Straightener Hand Name Role Phone BRIAN LEMOS Primary Care [...] Go To The Location Of Their Choice, [id number] 09/14/2023 10:07:31 pap test, thinprep , cervical 2021 022 [email or web address], [address] [place] [address], [address], 09/15/2021 07:40:42 Referral None recorded . Procedures None recorded . Surgeries None recorded . Imaging MAMMO, screenin g, digital, bilatera l - Breast Aspirati on and/or Biopsy if needed 2023 024 [facility] Orders, [address], [place], [address], 01/17/2024 10:47:14 bone density 2023 024 [facility] Orders, [address], [address], [place], [address], 09/08/2023 11:45:52 MAMMO, screenin g, digital, bilatera l [address] [facility] ([facility]), [address] [place], [address], 11/26/2021 09:43:36 bone density 2021 022 [facility] ([facility]), [address] [place], [address], 08/28/2023 07:20:08 Medication Orders medroxyp rogester one 2.5 mg tablet 2023 024 [facility]/Pharmacy #[facility], [address] [place] [address], [address], 09/08/2023 09:55:42 estradio l 1 mg tablet 2023 024 [facility]/Pharmacy #[facility], [address] [place] [address], [id number], 09/08/2023 09:55:41 estradio l 1 mg tablet 2022 023 [facility]/Pharmacy #[facility], [address] [place] [address], [address], 11/08/2022 08:46:23 medroxyp rogester one 2.5 mg tablet 2022 023 [facility]/Pharmacy #[facility], [address] [place] [address], [address], 11/08/2022 08:46:23 estradio l 1 mg tablet 2021 022 [facility]/Pharmacy #[facility], [address] [place] [address], [address], 09/01/2021 11:25:06 medroxyp rogester one 2.5 mg tablet 2021 022 [facility]/Pharmacy #[id number], [address] [place], [address], 09/01/2021 11:25:06 Patient TargetsNo targets recorded. Patient Instructions Encounter Date Encounter Id Patient Instructions Last Modified By Organization Details Last Modified Time 02/03/2021 [id number] This visit is a phone telehealth visit. The patient consented to the visit by phone. The patient was at home at the time of the call and the provider and patient were the only people on the line. I was at [address] [place] [address], [address], [place], at the time of the call. [...] 20 minutes. Not available 02/03/2021 09:53:13 02/05/2021 [id number] costochondritis: care instructions [email or web address] Not available 02/05/2021 [...] minutes kanwal Not available 02/05/2021 09:41:45 09/01/2021 [id number] atrophic vaginit is: care instructions Not available [...] time postmenopausally. Not available 09/01/2021 11:24:26 11/08/2022 [id number] This visit is a phone telehealth visit. The patient consented to the visit by phone. The patient was at home at the time of the call and the provider and patient were the only people on the line. I was at [address] [place] [address], [facility] [address], [place], at the time of the call. [...] 12 minutes. Not available 11/08/2022 08:52:52 09/08/2023 [id number] atrophic vaginit is: care instructions Not available [...] Detail LastModifiedTime 09/02/19 22 09/01/2021 PAP1C ASE ppl5mofs ThinP rep Pap, Image d: NEGAT СЕРГЕЙ FOR SQUAM OUS INTRA EPITH ELIAL LESIO N AND CHAPARRO KATCY . React сергей cellu bk bauer es. [place] blanca estro gen for patie nt's age [...] 6/8/2 0 neg. [z12. 4] Not Available [facility], Cytopathology Service [address], [place], [address], 09/10/2021 10:11:13 09/08/19 24 09/14/2023 IGP, RFX APTIM A HPV ASCU diagnosis: Commen t NEGAT СЕРГЕЙ FOR INTRA EPITH ELIAL LESIO N OR MALIG DRE . THIS SPECI MEN WAS RESCR EENED PART OF OUR QUALI TY CONTR OL PROGR AM. Not Available [facility] ([facility]) [address] [place], [address], 09/14/2023 10:07:31 09/08/19 24 09/14/2023 IGP, RFX APTIM A HPV ASCU specimen adequacy: Kenzie timmons Satis facto ry for evalu ation . Endoc ervic al and/o r squam ous metap lasti c cells (endo cervi schuyler compo nent) are prese nt. Not Available [facility] ([facility]) [address] [place], [address], 09/14/2023 10:07:31 09/08/19 24 09/14/2023 IGP, RFX APTIM A HPV ASCU clinician provided ICD10: Kenzie timmons Z12.4 Not Available [facility] ([facility]) [address] [place], [address], 09/14/2023 10:07:31 09/08/19 24 09/14/2023 IGP, RFX APTIM A HPV ASCU performed by: Kenzie andrews, Cytot echno logis t (ASCP ) Not Available [facility] ([facility]) [address] [place], [address], 09/14/2023 10:07:31 09/08/19 24 09/14/2023 IGP, RFX APTIM A HPV ASCU QC reviewed by: Kenzie Crain, Cytot echno logis t (ASCP ) Not Available [facility] ([facility]) [address] [place], [address], 09/14/2023 10:07:31 09/08/19 24 09/14/2023 IGP, RFX APTIM A HPV ASCU . . Not Available [facility] ([facility]) [address] [place], [address], 09/14/2023 10:07:31 09/08/19 24 09/14/2023 IGP, RFX [...] ts do occur . Not Available [facility] ([facility]) [address] [facility], [place], [address], 09/14/2023 10:07:31 09/08/19 24 09/14/2023 IGP, RFX APTIM A HPV ASCU test methodology: Commen t This liqui d based ThinP rep(R ) pap test was scree kirill with the use of an image guide d syste m. Not Available [facility] ([facility]) [address] [facility], [place], [address], 09/14/2023 10:07:31 09/08/19 24 09/14/2023 IGP, RFX APTIM A HPV ASCU . Commen t The HPV DNA refle x crite gabino were not met with this speci men resul t there fore, no HPV testi ng was perfo rmed. Not Available [facility] ([facility]) [address] [facility], [place], [address], 09/14/2023 10:07:31 02/03/20 21 02/02/2021 bone densi [...] bilat eral No observ ation record ed. [facility] [address] [place], [address], 01/11/2023 11:41:52 01/17/20 24 01/17/2024 MAMMO , paulino sooriog, digit al, bilat eral No observ ation record ed. [facility] [address] [place], [address], 01/17/2024 11:09:55 Result Notes None recorded. Problems Name Problem SNOMED Code Status Onset Date Resolution Date Notes Provider Name and Address Organization Details Recorded Time Atrophic vulvovaginitis 94092719 Active Radha Robert MD [address], [place], [address], [place] [facility], 6 08:14:33 Lichen sclerosus et atrophicus Active Radha Robert MD [address], [place], [address], [place] [facility], 6 08:14:33 Menopausal syndrome 343159766 Active Radha Robert MD [address], [place], [address], [place] [facility], 6 09:57:18 Osteopenia 209665089 Active 2020 Radha Robert MD [address], [address], [place] [facility], 09:33:40 Breast lump 07914081 Active 2020 Radha Robert MD [address], [place], [address], [place] [facility], 09:33:50 Problem Notes None recorded. Procedures Surgical History Date Name Laterality Status Provider Name and Address Organization Details Recorded Time 1 Most Recent Mammogram completed Heidy Parr [facility], 08/25/2021 09:49:05 9 Most Recent Bone Density completed Heidy Bee in [facility], 09/02/2019 10:16:07 5 Caesarean Section completed Heidy Naidu [place] - Rohit in [facility], 11/11/2011 08:06:14 Imaging Results Imaging Date Name Status LastModified by [facility] Details LastModified Time 02/02/2021 bone density completed Information not available 02/03/2021 09:18:06 03/13/2018 bone density completed Information not available 02/02/2021 14:02:29 11/26/2021 MAMMO, screening, digital, bilateral completed Information not available 11/26/2021 09:50:25 01/11/2023 MAMMO, screening, digital, bilateral [facility] [address], [address], 01/11/2023 11:41:52 01/17/2024 MAMMO, screening, digital, bilateral [facility] [address], [address], 01/17/2024 11:09:55 Procedure Notes None recorded. Medical [...] Address Organization Details Last Updated DateTime 1 14556.5 2 g 24.6 kg/m2 161.29 cm 97.5 [degF] 76 /min 116 mm[Hg] 66 mm[Hg] Ronda Tillman [place] [facility], 1 09:15:43 Date Recorded Body height Body mass index (BMI) Body weight Heart rate Body temperature Systolic blood pressure Diastolic blood pressure Provider Name and Address Organization Details Last Updated DateTime 2 161.29 cm 24.2 kg/m2 62344.9 g 84 /min 97.2 [degF] 111 mm[Hg] 59 mm[Hg] Heidy Naidu [place] - [facility], 2 09:33:04 Date Recorded Body temperature Body height Body mass index (BMI) Body weight Heart rate Systolic blood pressure Diastolic blood pressure Provider Name and Address Organization Details Last Updated DateTime 4 97.6 [degF] 162.56 cm 24.2 kg/m2 16363.5 2 g 89 /min 123 mm[Hg] 55 mm[Hg] harshil hager [place] - [facility], 4 09:32:17 Social History Question Answer Notes LastModified by Organizat ion Details LastModified Time Tobacco Smoking Status Never Smoker Not Available [facility] 01/28/2020 03:19:37 What Is Your Level Of Caffeine Consumption? Moderate [id number] Information not available 01/28/2020 In The 14 Days Before Symptom Onset, Have You Had Close Contact With A Laboratory-confirm ed COVID-19 While That Case Was Ill? No Information n ot available 11/20/2020 In The 14 Days Before Symptom Onset, Have You Had Close Contact With A Person Who Is Under Investigation For COVID-19 While That Person Was Ill? No Information not available 11/20/2020 Have You Been To An Area Known To Be High Risk For COVID-19? No Information not available 11/20/2020 What Type Of Diet Are You Following? REGULAR [id number] Information n ot available 01/28/2020 Which Illicit Or Recreational Drugs Have You Used? No [id number] Information not available 01/28/2020 Do You Reside In Or Have You Traveled To An Area Where Ebola Virus Transmission Is Active? No [id number] Information not available 01/28/2020 Education Post Graduate Information not available 11/11/2011 What Is The Highest Grade Or Level Of School You Have Completed Or The Highest Degree You Have Received? [id number] Information not available 11/20/2020 Who Is Your [...] Which Gender Do You Self-identify? Female Information n ot available 06/24/2016 Marital Status Informatio n not available 11/11/2011 What Was The Date Of Your Most Recent Tobacco Screening? 09/08/2023 [email or web address] Information not available 09/08/2023 What Is Your Relationship Status? Information not available 09/01/2021 Are You Sexually Active? No [id number] Information not available 01/28/2020 How Much Tobacco Do You Smoke? No [id number] Information not available 01/28/2020 General Stress Level Low Information not available 09/01/2021 How Many Years Have You Smoked Tobacco? 0 [id number] Information not available 01/28/2020 Have You Recently (within The Last 12 Weeks, Or During A Current ) Traveled To Or Lived In A Zika-affected Area? No Information not available 06/24/2016 Sex: Female Functional Status Question Answer Note LastModified by Organizat ion Details LastModified Time Do you use any illicit or recreational drugs? No Information not available 11/20/2020 Do you or have you ever used any other forms of tobacco or nicotine? No Information not available 11/20/2020 What is your level of alcohol consumption? None [email or web address] Information not available 02/05/2021 Do you or have you ever used smokeless tobacco? Never used smokeless tobacco [id number] Information not available 01/28/2020 Are you currently employed? Yes Information not available 11/20/2020 Do you or have you ever used e-cigarettes or vape? Never used electronic cigarettes [id number] Information not available 01/28/2020 What is your exercise level? Occasional [id number] Information not available 01/28/2020 Mental Status Question Answer Note LastModified by Organization D etails LastModified Time Do you feel stressed (tense, restless, nervous, or anxious, or unable to sleep at night)? [id number] Information not available 11/20/2020 Family History Relationship Description Onset Age of [...] previo usly record ed as Heart Attack ([place]) Not available 06/11/2015 08:11:32 Notes:does not want [...] Vaccine Type Date Status Note Provider Nam demi and Address Organization Details Recorded Time pneumococcal, unspecified formulation 03/28/2016 completed Janell balderas [place] [facility], 06/24/2016 13:13:47 COVID-19, mRNA, LNP-S, PF, 30 mcg/0.3 mL dose 06/02/2020 completed JOSIANE Rea in [facility], 11/20/2020 09:42:06 COVID-19, mRNA, LNP-S, PF, 30 mcg/0.3 mL dose 05/15/2020 completed JOSIANE Su in [facility], 02/05/2021 09:16:20 COVID-19, mRNA, LNP-S, PF, 30 mcg/0.3 mL dose 01/01/2021 completed JOSIANE Su in [facility], 02/05/2021 09:16:43 Past Encounters Encounter ID Performer Location Encounter Start Date Encounter Closed Date Diagnosis/Indication Diagnosis SNOMED-CT Code Diagnosis ICD10 Code Diagnosis Note [id number] MD RADHA Jason MD [address] [place] [address],[address] [place] [address] 11/11/2011 07:44:17 11/11/2011 13:05:11 [id number] MD RADHA Jason MD [address] [place] [address],[address] [place] [address] 12/04/2012 07:38:55 12/04/2012 13:36:13 [id number] MD RADHA Jason MD [address] [place] [address],[address] [place] [address] 05/14/2014 08:04:14 05/14/2014 09:05:32 Specialized medical examination 98989798 Screening for malignant neoplasm of rectum 489864419 Screening mammography 73068950 [id number] MD RADHA Jason MD [address] [place] [address],[address] [place] [address] 06/11/2015 07:51:43 06/11/2015 10:43:28 Screening for malignant neoplasm of cervix 261910042 Z12.4 Screening mammography 24 514417 Z12.31 Menopausal syndrome 1237 56407 N95.9 [id number] MD RADHA Jason MD [address] [place] [address], [place] [address] 06/24/2016 13:00:18 06/24/2016 14:38:26 Screening for malignant neoplasm of cervix 937500154 Z12.4 Screening mammography 24 118276 Z12.31 Cares for self 131538084 Z76.89 [id number] MD RADHA Jason MD [address] [place], [place] [address] [place] [address] 07/06/2017 13:18:57 07/06/2017 14:46:33 Screening for malignant neoplasm of cervix 995310435 Z12.4 Screening mammography 24 818297 Z12.31 Lichen scl erosus et atrophicus 11799623 L90.0 [id number] MD RADHA Jason MD [address] [place], [place] [address] [address] 09/02/2019 10:06:05 09/02/2019 11:28:38 Screening for malignant neoplasm of cervix 499605826 Z12.4 Screening mammography 24 603522 Z12.31 Menopausal syndrome 1237 42158 N95.1 [id number] MD RADHA Jason MD [address] [place] [address] [place] [address] 11/20/2020 09:40:11 11/20/2020 12:41:18 Menopausal syndrome 100263856 N95.1 Atrophic vulvovaginitis 01984867 N95.2 [id number] MD RADHA Jason MD [address] [place] [address] [place] [address] 02/03/2021 09:13:28 02/03/2021 09:56:29 Osteopenia 572563509 M85.852 Breast lump 50722419 N63 .0 [id number] MD RADHA Jason MD [address] [place], [place] [address] [address] 02/05/2021 09:06:58 02/05/2021 10:26:06 Anterior chest wall pain 671166979 R07.89 Costal chondritis 835177 04 M94.0 Breast lump 81738807 N63 .23 [id number] MD RADHA Jason MD [address] [facility],[address] [place] [address] 09/01/2021 09:25:15 09/01/2021 11:29:10 Screening for malignant neoplasm of cervix 882142029 Z12.4 Screening mammography 24 876197 Z12.31 Screening for osteoporosis 603732278 N95.8 Menopausal syndrome 1237 [address] N95.8 [id number] MD RADHA Jason MD [address] [facility],[address] [place] [address] 11/08/2022 08:38:37 11/08/2022 10:22:46 Menopausal syndrome 749066239 N95.8 [id number] MD RADHA Jason MD [address] [facility] [place] [address] 09/08/2023 09:28:39 09/08/2023 11:45:52 Screening for malignant neoplasm of cervix 898892641 Z12.4 Screening mammography 24 466108 Z12.31 Screening for osteoporosis 188383922 N95.8 Menopausal syndrome 1237 85773 N95.8 Health Concerns Section Related Observation LastModified by Organization Detai ls LastModified Time None Recorded Concern Status LastModified by Organization Details LastModified Time None Recorded Advance Directives Directive None Recorded Payers Encounter Date Sequence Insurance Name Policy Number Policy Schaffer Covered Member ID Schaffer Member ID Guarantor Name 02/03/2021 2 [place] Nasir Looney [place] [id number] Chelsey Drugan 02/03/2021 1 [place] Chelsey A Drugan [id number] Chelsey Drugan 02/05/2021 2 [place] Nasir Looney Lulu [id number] Chelsey Drugan 02/05/2021 1 [place] Chelsey A Drugan [id number] Chelsey Drugan 09/01/2021 2 [place] Nasir Lawson [id number] Chelsey Drugan 09/01/2021 1 [place] [facility] G[facility]MENT SERVICES Chelsey A Drugan [id number] Chelsey Drugan 11/08/2022 2 [place] Nasir Lawson [id number] Chelsey Drugan 11/08/2022 1 [place] [facility] Chelsey A Drugan [id number] Chelsey Drugan 09/08/2023 2 [place] Nasir Looney Drugimmanuel [id number] Chelsey Drugan 09/08/2023 1 [place] [facility] Chelsey A Drugan [id number] Chelsey Drugan Notes Date Note Type Note Provider Name and Address Organization Details Recorded Time 02/03/2021 text/html This visit is a phone telehealth visit. The patient consented to the visit by phone. The patient was at home at the time of the call and the provider and patient were the only people on the line. I was at [address] [facility], [facility] [address], [place], at the time of the call. [...] in 10/2020 was negative. Radha Robert MD [address] [place] [address],[facility] [address], [place], [address], [place] [facility], 02/03/2021 [...] like a swelling. Radha Robert MD [address] [facility],[address], [place], [address], [facility] - [facility], 02/05/2021 10:21:06 09/01/2021 text/html She is here [...] needs more aristocort. Radha Robert MD [address] [facility] [address], [place], [address], [facility] - [facility] in [facility], 09/01/2021 11:25:06 11/08/2022 text/html This visit is a phone telehealth visit. The patient consented to the visit by phone. The patient was at home at the time of the call and the provider and patient were the only people on the line. I was at [address] [place] [address], [place] [address], [place], [place], at the time of the call. She is taking HRT and doing well on it, she would like continue. She has shira taking it for more than 12 years. She does have hot flashes if she forgets to take it. Radha Robert MD [address] [facility] [address], [place], [address], [facility] - [facility], 11/08/2022 09:09:34 09/08/2023 text/html She is here for annual exam, is doing well on her HRT and elects to continue. She has vasomotor symptoms if she misses a pill. Radha Robert MD [address] [facility] [address], [place], [address], [facility] - [facility] in [facility], 09/08/2023 09:56:15 OBGyn Episode No OBEpisode recorded.
== END 2024-08-14 11:21 | disposition home or self-care (01) ==
LOC: HO.HMCFM 10:18
PROVIDERS: PCP Nurse Practitioner Family; Visit Provider Nurse Practitioner Family
DX: R27.0 Ataxia, unspecified (principal); R74.8 Abnormal levels of other serum enzymes; E60 Dietary zinc deficiency; H55.00 Unspecified nystagmus

== ENCOUNTER → 2024-08-14 10:17 | Outpatient (BNVA) | payer MEDICARE, BC, SELFPAY | PROVIDERS: PCP Nurse Practitioner Family; Visit Provider Nurse Practitioner Family | DX: R27.0 Ataxia, unspecified (principal); E60 Dietary zinc deficiency; H55.00 Unspecified nystagmus; R74.8 Abnormal levels of other serum enzymes | CPT/HCPCS: 99212 ==

== ENCOUNTER 2024-12-09 09:46 | Outpatient (REF) | payer MEDICARE, BC, SELFPAY ==
[2024-12-09 10:47] LABS: Hematocrit 37.6 % (37.0-47.0); Hemoglobin 12.3 g/dl (12.0-16.0); Mean Corpuscular HGB Conc 32.7 g/dl (31.0-35.0); Mean Corpuscular Hemoglobin 31.5 pg (27.0-33.0); Mean Corpuscular Volume 96.2 fL (80.0-98.0); NRBC Abs Auto 0.000 X10*3/uL (0.0-0.012); NRBC Pct Auto 0.0 /100WBC (0.0-0.2); Platelet Count 233 X10*3/uL (160-400); Red Blood Count 3.91 X10*6/uL (4.20-5.50); White Blood Count 3.9 X10*3/uL (4.8-10.8)
[2024-12-09 11:24] LABS: Alanine Aminotransferase 13 U/L (0-31); Albumin Level 4.4 g/dL (3.5-5.0); Alkaline Phosphatase 42 U/L (39-117); Anion Gap 11 (12-20); Aspartate Amino Transferase 21 U/L (5-31); Blood Urea Nitrogen 11 mg/dL (9-16); Calcium 9.5 mg/dL (8.4-10.2); Carbon Dioxide 27 mmol/L (22-29); Chloride 105 mmol/L (96-108); Estimated Glomerular Filt Rate > 60; Potassium 5.0 mmol/L (3.3-5.1); Sodium 138 mmol/L (135-145); Total Protein 7.0 g/dL (6.5-8.0)
--- OUTSIDE RECORDS SUMMARY | 2024-12-09 12:01 | XMS_ITS ---
Author Name [facility] Organization Unknown Care Team Organization Name Specialty Phone Email Start Date End Da te [facility] Kiran Richmond DO Primary Care 12/01/202210/25 [facility] KEL MACHADO Primary Care 02/01/2022 11/13/2023
== END 2024-12-09 09:47 | disposition home or self-care (01) ==
LOC: HO.LAB 09:46
PROVIDERS: PCP Nurse Practitioner Family; Visit Provider Nurse Practitioner Family
DX: R74.8 Abnormal levels of other serum enzymes (principal); R27.0 Ataxia, unspecified
CPT/HCPCS: 36415; 80053; 84630; 85027

== ENCOUNTER 2024-12-16 08:53 | Outpatient (AMB) | payer MEDICARE, BC, SELFPAY ==
--- NOTE | 2024-12-16 09:05 | A.OFFVIS_ITS ---
Intake Vital Signs 12/16/24 09:14 Height 5 ft 4 in Weight 143 lb 2 oz BMI 24.6 BP 102/66 Blood Pressure Location Lt brachial Position Sitting Respiration 12 Pulse 75 Pulse Source Pulse Oximeter Temp 97.5 F Temp Source Oral Pulse Oximetry (%) 98 Oxygen Delivery Method Room Air Intake Visit Reasons: 4 mo repeat labs, fu ataxia Intake Note: AWV and review labs. Detective Bureau Chief Required: No Allergies No Known Allergies Allergy (Verified 12/16/24 09:26) Medication List - Last Reconciled 12/16/24 by Sofie Barbosa, [facility] calcium carbonate-vitamin D3 600 mg-10 mcg (400 unit) (Calcium 600 with Vitamin D3) tabs PO cholecalciferol (vitamin D3) 50 mcg PO DAILY estradiol 1 mg PO DAILY medroxyprogesterone 2.5 mg PO DAILY multivitamin with iron 1 tab PO DAILY zinc gluconate 30 mg PO DAILY Do you need a note to return to daycare/school/sports/work: No HPI HPI Comments History of Present Illness Details Here today for AWV. The Medicare Annual Wellness Visit (AWV) is a yearly appointment with a health professional to identify health risks and help reduce them and to create or update a personalized prevention plan. During a Medicare AWV, health professionals should also review any current opioid prescriptions, detect any cognitive impairment, and establish or update medical and family history. 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 [place] of Care: Cards Obgyn Dr Schafer, [facility] last exam 2024 [facility] annual visits Visual Acuity: had eye exam recently, fu in December. Wears glasses. Hearing Screening: no issues ACP: HCP Y; Living will in place. Dietary/Nutrition/Exercise Edu provided: Y During the course of the visit the patient was educated and counseled about appropriate screening and preventative services. Patient instructions were provided to the patient in written or electronic format. I have reviewed and verified the above information. History of Present Illness The patient is a 74-year-old female presenting with an annual Medicare visit and evaluation of balance disturbance. Balance disturbance: - Episodes of imbalance noted intermitte ntly. - Symptoms include visual disturbances a nd light-headedness. - Eyes and balance being monitored; eye appointment planned. Vitamin D deficiency: - Previously diagnosed and managed with increased compliance to supplements. - Levels are currently satisfactory. Mild anemia: - Continues with a multivitamin with iro n. - Doesn't take supplements daily to avoi d constipation. - Taking 3-4 times per week Zinc deficiency: - Past deficiency corrected. - Maintained normal levels with zinc sup plements. - Alk phos now norml Menopause: - On hormone replacement therapy. - No adverse issues discussed. Anxiety: - Managed with lifestyle strategies and not on daily medications. - Uses unarmed security guard and occasional medica tions for sleep support. - sparing use of benadryl to help w/ ins omnia Family History - Denies family history of colorectal ca ncer. Social History - Engages actively with grandchildren, p lays outdoors, and maintains a functional active lifestyle. - Prioritizes a balanced diet, avoids ex cessive sugar, and manages dietary salt intake. - Maintains regular physical activity in cluding walking and playing with family. 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 - Describes anxiety management with non- pharmacological measures. Health Maintenance - Scheduled eye follow-up for visual dis turbances and dry eye monitoring. - Annual wellness check complies with Me dicare guidelines. - Screening labs included CBC and electr olyte assessment revealing mild ab normalities. - Discussion on holding off labs unless symptoms worsen. - Recommended flu shot, declined by the patient. - Reviewed healthcare proxy status, ana ent to update specifics if necessary. Review of Systems - Neurological: Reports off-balance feel ings and visual focus issues occasionally; denies dizziness when seated or driving. - Eyes: Reports previous visit to an eye doctor; denies new vision changes. - General: Reports being an active indiv idual; denies falls during episodes. - Gastrointestinal: Denies issues with e limination; reports sporadic constipation related to iron supplements. - Cardiovascular: Denies chest pain or t ightness. - Respiratory: Denies cough or difficult y breathing. - Dermatological: Denies rashes or bauer es of concern. Physical Exam General: Well developed, well nourished, in no acute distress. Appears stated age. Head: Normocephalic, atraumatic. Eyes: Pupils are equal, round and reactive to light and accommodation. Conjunctivae are clear. Vision grossly normal. Left lateral nystagmus Ears: TMs clear AU, EACS WNL Nose: Patent, without discharge. Neck: Supple, no adenopathy or thyromegaly. No carotid bruit Breast: Edu on SBE Lungs: Clear to auscultation bilaterally. No rales, rhonchi or wheeze noted. Good air flow in all enrique. Heart: Regular rate and rhythm. No murmurs, click, rubs or gallops are noted. Abdomen: Bowel sounds present in all quadrants. The abdomen is soft, nontender, with no masses or organomegaly noted. No hernias are noted. : Deferred. Reviewed recommendations for routine PHOTOLITH OPERATOR Pulses: Peripheral pulses are equal and palpable bilaterally. Extremities: No clubbing, cyanosis nor edema is noted. Neurologic: Normal strength, tone and reflexes,Oriented x 3, CN II-XI intact, CORTEZ x 4, normal speech, staggering gait, no pronator drift, no tremor Abnormal tandem gait unsteady bilat worse on the R, mildly + rhomberg Skin: No rashes, ulcers, or lesions noted. Turgor is good. Skin color is good. Hair and nails are without abnormalities. Psych: Normal eye contact, affect and mood appropriate, and normal interactions. Patient is alert and appropriate to context. Results - Labs: CBC noted with decreasing white and red blood cell counts, not significantly low but trending down. - Labs: Zinc level at 71; low end of nor mal range noted. - Tests: MRI was reportedly normal per p atient history, excluding secondary causes for balance issues. Discussion Notes During the visit, the patient and I discussed concerns regarding the ongoing balance disturbances. I advised the patient about the potential effects of long- term zinc supplementation and the need to monitor copper levels with future testing. We talked about her compliance with vitamin D and multivitamins and reviewed her management strategies for mild anemia, allowing flexibility due to constipation. Details of her past eye examination were reviewed, and ensuring follow-up with the accounts payable administrator was encouraged to address visual disturbances that may contribute to her balance symptoms. I reviewed skin health maintenance, emphasized healthcare planning such as the legal implications of proxy and testament documentation, and offered reassurance regarding lab results, encouraging continued monitoring and involvement in active lifestyle activities. Referral to physical therapy for gait stability was offered, and the EKG was performed as part of wellness screening. Consent discussions involved healthcare proxy documentation and normal processes for updating medical information. Patient was given time to ask questions. All questions were answered to their satisfaction. Assessment and Plan 1. Balance disturbance - Patient has ongoing balance issues; re pearl to physical therapy, follow up with retirement benefits specialist. 2. Vitamin D deficiency - Continue vitamin D supplementation; le vels are sufficient. 3. Mild anemia - Maintain multivitamin with iron; addre ss constipation by spacing doses. - recheck lab before next visit 4. Zinc deficiency - Zinc is within range; check copper lev els in future labs. Cont Zinc supplement 5. Menopause - Ongoing hormone therapy regulation; no changes indicated. 6. Anxiety - Use unarmed security guard; lifestyle management; sleep aids used minimally. Patient Instructions - Follow up with eye doctor as planned. - Keep taking vitamin D as recommended. - Take iron supplement every other day t o help with constipation. - Discuss healthcare proxy with family a nd update if needed. - Try to stay active and balanced. - Go to physical therapy if called; show them your balance test difficulties. - Call if your symptoms get worse sudden ly. - RTO 3-4 mo w/ repeat labs, sooner as n eeded. Consent Patient was informed and verbally consented to the use of an ambient scribe for clinic note documentation during this visit. An additional 45 minutes was spent addressing the problem(s) noted at todays visit. This includes time spent before the visit reviewing the chart, time spent during the visit, and time spent after the visit on documentation reviewing laboratory results, diagnostic imaging, medications, performing a medically necessary evaluation, counseling on diagnoses, care coordination, ordering appropriate tests, ordering appropriate medications, review of tests performed by other providers, reporting test results with the patient, communication with other healthcare providers. [facility] Medical History (Updated 12/16/24 @ 09:58 by Sfoie Barbosa [facility]) History of screening mammography (~12/2023) No pertinent past medical history Surgical History (Updated 07/30/24 @ 07:43 by Sofie Barbosa [facility]) History of colonoscopy (~2022) Family History (Updated 07/30/24 @ 10:52 by Gale Pardo MA) Father Cardiovascular disease Throat cancer Sister Breast cancer Social History (Updated 07/30/24 @ 10:50 by Gale Pardo MA) Household Members: Spouse Both parents involved: No Caregiver staying overnight: No Housing: House Are you a primary foster care case manager to a significant other at home: No Do you presently have visiting nurse or other home services: No 75 years or older and lives alone: No Alcohol intake: never Patient Tobacco Use Status: Never used Tobacco e-Cigarette/Vaping Use: Never Used Second Hand Smoke Exposure: No service: No Current occupational status: retired Cognitive needs: No Hearing needs: No Vision needs: No Questionnaire Medicare Wellness Checkup What [age] your [age]?: [age] What gender do you identify with?: female During the past 4 weeks, how much have you been bothered by emotional problems such as feeling anxious, depressed, irritable, sad or downhearted, and blue?: not at all During the past 4 weeks, has your physical & emotional health limited your social activities with family, friends, neighbors, or groups?: not at all During the past 4 weeks, how much bodily pain have you generally had?: no pain During the past 4 weeks, was someone available to help you if you needed & wanted help?: yes, as much as I wanted During the past 4 weeks, what was the hardest physical activity you could do for at least 2 minutes?: moderate Can you get to places out of walking distance without help? (For eg., can you travel alone on buses, taxis or drive your car?): Yes Can you go shopping for groceries or clothes without someone's help?: Yes Can you prepare your own meals?: Yes Can you do your housework without help?: Yes Because of any health problems, do you need the help of another person with your personal care needs such as eating, bathing, dressing or getting around the house?: No Can you handle your own money without help?: Yes During the past 4 weeks, how would you rate your health in general?: excellent During the past 4 weeks how have things been going for you?: pretty well Are you having difficulties driving your car?: no Do you always fasten your seat belt when you are in a car?: yes, usually During past 4 weeks, have you been bothered by the following: never: Sexual problems?, Trouble eating well?, Teeth or denture problems?, Problems using the telephone? and Tiredness or fatigue? and sometimes: Falling or dizzy when standing up Have you fallen 2 or more times in the past year?: No Are you afraid of falling?: No Are you a smoker?: no During the past 4 weeks, how many drinks of wine, beer, or other alcoholic beverages did you have?: no alcohol at all Do you exercise for about 20 minutes 3 or more times a week?: yes, some of the time Have you been given information to help with the following?: no: Hazards in your house that might hurt you? and no: Keeping track of your medications? How often do you have trouble taking medicines the way you have been told to take them?: I always take medicine as prescribed How confident are you that you can control & manage most of your health problems?: very confident What is your race?: White Activity of Daily Living Bathing - sponge bath, tub bath or shower: receives no assistance (gets in/out by self, if usual bathing means Dressing - getting clothes from closets & drawers, including inner/outer garments & fasteners.: gets clothes & gets completely dressed without help Toileting - going to the 'toilet room' for urine/bowel elimination & cleaning self/arranging clothes: goes to toilet room, cleans self, arranges clothes without help Transfer: moves in & out of bed and chair without help (may use support object) Continence: controls urination/bowel movements completely by self Feeding: feeds self without help Total Score: 0 Information obtained from: patient Using telephone: independent Traveling: independent Shopping: independent Preparing meals: independent Housework: independent Taking medicine: independent Managing money: independent PHQ-9 Over the last 2 weeks, how often have you been bothered by any of the following problems? 1. Little interest or pleasure in doing things: not at all 2. Feeling down, depressed, or hopeless: not at all 3. Trouble falling or staying asleep, or sleeping too much: not at all 4. Feeling tired or having little energy: not at all 5. Poor appetite or overeating: not at all 6. Feeling bad about yourself - or that you are a failure or have let yourself or your family down: not at all 7. Trouble concentrating on things, such as reading the newspaper or watching television: not at all 8. Moving or speaking so slowly that other people could have noticed. Or the opposite - being so fidgety or restless that you have been moving around a lot more than usual: not at all 9. Thoughts that you would be better off or of hurting yourself in some way: not at all Total score: 0 Depression Screening Interpretation: Negative Depression Screening Done: Yes 30801 - PHQ-9 Billing: Yes Source: Developed by Drs. Sanchez Shah, Sherri Mejia, Jaun Silva and colleagues, with an educational no from [employer]. Physical Exam Vital Signs: Last Vital Signs Temp 97.5 F 12/16/24 09:14 Pulse 75 12/16/24 09:14 Resp 12 12/16/24 09:14 BP 102/66 12/16/24 09:14 Pulse Ox 98 12/16/24 09:14 Oxygen Delivery Method Room Air 12/16/24 09:14 BMI result Body Mass Index 24.6 Office Procedures EKG [id number], Complete Vision Screening Right Eye: 20/25 Left Eye: 20/30 Bilateral: 20/30 36716 - Vision Screening Results AMB Hemoglobin A1c AMB Hemoglobin A1c 5.2 % Last Edit by Gale Pardo MA on 12/16/24 09:25 Results Reviewed Results Reviewed: Laboratory Last Values Hgb A1c (Clinic) 5.2 % (4.0-6.0) 12/16/24 09:18 Laboratory 12/12/24 Result Units Range Interpretation Provider Comments White Blood Count 3.9 X10*3/uL (4.8-10.8) Low Red Blood Count 3.91 X10*6/uL (4.20-5.50) Low Hemoglobin 12.3 g/dl (12.0-16.0) Hematocrit 37.6 % (37.0-47.0) Mean Corpuscular Volume 96.2 fL (80.0-98.0) Mean Corpuscular Hemoglobin 31.5 pg (27.0-33.0) Mean Corpuscular Hemoglobin Concent 32.7 g/dl (31.0-35.0) Red Cell Distribution Width 13.1 % (11.0-16.0) Platelet Count 233 X10*3/uL (160-400) Mean Platelet Volume 9.8 fL (9.4-12.3) Nucleated RBC Absolute Count (auto) 0.000 X10*3/uL (0.0-0.012) Nucleated Red Blood Cells % (auto) 0.0 /100WBC (0.0-0.2) Sodium Level 138 mmol/L (135-145) Potassium Level 5.0 mmol/L (3.3-5.1) Chloride Level 105 mmol/L (96-108) Carbon Dioxide Level 27 mmol/L (22-29) Anion Gap 11 (12-20) Low Blood Urea Nitrogen 11 mg/dL (9-16) Creatinine 0.88 mg/dL (0.5-1.4) Estimated Creatinine Clearance Calc Not Reportable Estimat Glomerular Filtration Rate > 60 Random Glucose 107 mg/dL (60-115) Calcium Level 9.5 mg/dL (8.4-10.2) Total Bilirubin 0.4 mg/dL (0.0-1.0) Aspartate Amino Transf (AST/SGOT) 21 U/L (5-31) Alanine Aminotransferase (ALT/SGPT) 13 U/L (0-31) Alkaline Phosphatase 42 U/L (39-117) Total Protein 7.0 g/dL (6.5-8.0) Albumin 4.4 g/dL (3.5-5.0) Zinc Level 71 mcg/dL (60-130) Assessment & Plan Assessment & Plan (1) Encounter for subsequent annual wellness visit (AWV) in Medicare patient: Onset Date: ~12/16/24 Code(s): Z00.00 - Encounter for general adult medical examination without abnormal findings (2) Family history of coronary artery disease: Code(s): Z82.49 - Family history of ischemic heart disease and other diseases of the circulatory system (3) HLD (hyperlipidemia): Code(s): E78.5 - Hyperlipidemia, unspecified Qualifiers: Hyperlipidemia type: mixed hyperlipidemia Qualified Code(s): E78.2 - Mixed hyperlipidemia (4) Osteopenia: Code(s): M85.80 - Other specified disorders of bone density and structure, unspecified site Qualifiers: Osteopenia location: multiple sites Qualified Code(s): M85.89 - Other specified disorders of bone density and structure, multiple sites (5) Vitamin D deficiency: Code(s): E55.9 - Vitamin D deficiency, unspecified (6) Low zinc level: Code(s): E60 - Dietary zinc deficiency (7) Hepatic cyst: Code(s): K76.89 - Other specified diseases of liver (8) Premature menopause on HRT: Code(s): E28.319 - Asymptomatic premature menopause; Z79.890 - Hormone replacement therapy (9) Family history of breast cancer in sister: Code(s): Z80.3 - Family history of malignant neoplasm of breast (10) Ataxia: Code(s): R27.0 - Ataxia, unspecified (11) Nystagmus: Code(s): H55.00 - Unspecified nystagmus (12) Low serum alkaline phosphatase: Code(s): R74.8 - Abnormal levels of other serum enzymes (13) Influenza vaccination declined: Code(s): Z28.21 - Immunization not carried out because of patient refusal (14) Gait instability: Code(s): R26.81 - Unsteadiness on feet Plan . Orders: Orders Copper, serum 3 Months E60 - Dietary zinc deficiency IRON PROFILE Today D72.819 - Decreased white blood cell count, unspecified Ferritin Today D72.819 - Decreased white blood cell count, unspecified AMB Hemoglobin A1c Today Z13.9 - Encounter for screening, unspecified Complete Blood Count Man Dif 3 Months E60 - Dietary zinc deficiency Zinc 3 Months E60 - Dietary zinc deficiency PT Evaluation and Treatment Today R26.81 - Unsteadiness on feet, R27.0 - Ataxia, unspecified Patient Instructions: Health screenings for women You should visit your health care provider from time to time, even if you are healthy. The purpose of these visits is to: Screen for medical issues Assess your risk for future medical problems Encourage a healthy lifestyle Update vaccinations and other preventive care services Help you get to know your provider in case of an illness Information Even if you feel fine, you should still see your provider for regular checkups. These visits can help you avoid problems in the future. For example, the only way to find out if you have high blood pressure is to have it checked regularly. High blood sugar and high cholesterol levels also may not have any symptoms in the early stages. A simple blood test can check for these conditions. There are specific times when you should see your provider or receive specific health screenings. The [place] Preventive Services Task Force publishes a list of recommended screenings. Below are screening guidelines for women ages 18 to 39. BLOOD PRESSURE SCREENING Your blood pressure should be checked at least once every 3 to 5 years if: Your blood pressure is in the normal range (top number less than 120 mm Hg and bottom number less than 80 mm Hg) You don't have risk factors for high blood pressure Ask your provider if you need your blood pressure checked more often if: The top number is 120 to 129 mm Hg or the bottom number is 70 to 79 mm Hg You have diabetes, heart disease, kidney problems, are overweight, or have certain other health conditions You have a first-degree relative with high blood pressure You are Black You had high blood pressure during a If the top number is 130 mm Hg or greater or the bottom number is 80 mm Hg or greater, this is considered stage 1 hypertension. Schedule an appointment with your provider to learn how you can reduce your blood pressure. Watch for blood pressure screenings in your area. Ask your provider if you can stop in to have your blood pressure checked. BREAST CANCER SCREENING Experts do not agree about the benefits of breast self-exams in finding breast cancer or saving lives. Talk to your provider about what is best for you. A screening mammogram is not recommended for most women under age 40. Your provider may discuss and recommend mammograms, MRI scans, or ultrasounds if you have an increased risk for breast cancer, such as: A mother or sister who had breast cancer at a young age (most often starting screening earlier than the age the close relative was diagnosed) You carry a high-risk genetic marker CERVICAL CANCER SCREENING Cervical cancer screening should start at age 21 years unless your provider advises otherwise. After the first test: Women ages 21 through 29 should have a Pap test every 3 years. Exoprts do not agree on whether HPV testing is recommended for this age group. Women ages 30 through 65 should be screened with either a Pap test every 3 years or the HPV test every 5 years or both tests every 5 years (called cotesting ). Women who have been treated for precancer (cervical dysplasia) should continue to have Pap tests for 20 years after treatment or until age 65, whichever is longer. If you have had your uterus and cervix removed (total hysterectomy), and you have not been diagnosed with cervical cancer or precancer (high grade cervical neoplasia), you do not need cervical cancer screening. CHOLESTEROL SCREENING Cholesterol screening should begin at: Age 45 for women with no known risk factors for coronary heart disease Age 20 for women with known risk factors for coronary heart disease Repeat cholesterol screening should take place: Every 5 years for women with normal cholesterol levels More often if changes occur in lifestyle (including weight gain and diet) More often if you have diabetes, heart disease, kidney problems, or certain other conditions DIABETES SCREENING You should be screened for diabetes starting at age 35 and then repeated every 3 years if you have no risk factors for diabetes. Screening may need to start earlier and be repeated more often if you have other risk factors for diabetes, such as: You have a first degree relative with diabetes. You are overweight or have obesity. You have high blood pressure, prediabetes, or a history of heart disease. Screening for diabetes should be done if you are planning to become and you are overweight and have other risk factors such as high blood pressure. DENTAL EXAM Go to the dentist once or twice every year for an exam and cleaning. Your dentist will evaluate if you need more frequent visits. EYE EXAM Have an eye exam every 5 to 10 years before age 40. If you have vision problems, have an eye exam every 2 years or more often if recommended by your provider. You should have an eye exam that includes an examination of your retina (back of your eye) at least every year if you have diabetes. IMMUNIZATIONS Commonly needed vaccines include: Flu shot: get one every year. COVID-19 vaccine: ask your provider what is best for you. Tetanus-diphtheria and acellular pertussis (Tdap) vaccine: have one at or after age 19 as one of your tetanus-diphtheria vaccines if you did not receive it as an adolescent. Tetanus-diphtheria: have a booster (or Tdap) every 10 years. Varicella vaccine: receive 2 doses if you never had chickenpox or the varicella vaccine. Hepatitis B vaccine: receive 2, 3, or 4 doses, depending on your exact circumstances. Measles, mumps, and rubella (MMR) vaccine: receive 1 to 2 doses if you are not already immune to MMR. Your provider can tell you if you are immune. Ask your provider about the human papillomavirus (HPV) vaccine if: You have not received the HPV vaccine in the past You have not completed the full vaccine series (you should catch up on this shot) Ask your provider if you should receive other immunizations if you have certain health problems that increase your risk for some diseases such as pneumonia. INFECTIOUS DISEASE SCREENING Women who are sexually active should be screened for chlamydia and gonorrhea up until age 25. Women 25 years and older should be screened for chlamydia and gonorrhea if at high risk. Screening for hepatitis C: All adults ages 18 to 79 should get a one-time test for hepatitis C. people should be screened at every . Screening for human immunodeficiency virus (HIV): All people ages 15 to 65 should get a one-time test for HIV. Depending on your lifestyle and medical history, you may also need to be screened for infections such as syphilis and HIV, as well as other infections. PHYSICAL EXAM All adults should visit their provider from time to time, even if they are healthy. The purpose of these visits is to: Screen for disease Assess your risk of future medical problems Encourage a healthy lifestyle Update your vaccinations and other preventive care services Maintain a relationship with a provider in case of an illness Your height, weight, and BMI should be checked at every exam. During your exam, your provider may ask you about: Depression and anxiety Diet and exercise Alcohol and tobacco use Safety issues, such as using seat belts, smoke detectors, and intimate partner violence Your medicines and risk for interactions SKIN SELF-EXAM Your provider may check your skin for signs of skin cancer, especially if you're at high risk, such as if you: Have had skin cancer before Have close relatives with skin cancer Have a weakened immune system OTHER SCREENING Talk with your provider about colon cancer screening if you have a strong family history of colon cancer or polyps, or if you have had inflammatory bowel disease or polyps yourself. Routine bone density screening of women under 40 is not recommended. Quality Reporting (2019) Adult ([facility] 138/05/18/68) Smoking risk assessment performed?: Yes Patient Tobacco Use Status: Never used Tobacco Depression screening performed: Yes Screen Results: Yes Negative screen Systolic BP not done?: No Diastolic BP not done?: No BMI screening not done: No Sexual Activity Screening ([facility] 153) Sexually active?: Yes Immunizations ([facility] 147, 117) Annual Influenza Vaccine: Yes Measles Antibody Test: No Mumps Antibody Test: No Rubella Antibody Test: No Varicella Antibody Test: No Anti Hepatitis A IgG Antigen test: No Anti Hepatitis B Virus Surface Ab test: No Fall Risk Screening ([facility] 139) Last assessed Fall Risk: 12/16/24 Fall risk assessment: No Falls in past year Dementia Assessment ([facility] 149) Cognitive assessment recorded: Yes Assessment of cognition with standardized tool: Yes Depression/Bipolar (159/160/161/177) PHQ-9: Total score: 0 Ophthalmol:Cataracts Visual Acuity (133) Visual acuity exam performed: Yes (see results) Coding Level of Care Code Medicare Subsequent (G0439) Est Pt Level 5 (45325) Diagnoses Encounter for subsequent annual wellness visit (AWV) in Medicare patient Z00.00 Family history of coronary artery disease Z82.49 Mixed hyperlipidemia E78.2 Hyperlipidemia type: mixed hyperlipidemia Osteopenia of multiple sites M85.89 Osteopenia location: multiple sites Vitamin D deficiency E55.9 Low zinc level E60 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 Premature menopause on HRT E28.319; Z79.890 Family history of breast cancer in sister Z80.3 Ataxia R27.0 Nystagmus H55.00 Low serum alkaline phosphatase R74.8 Influenza vaccination declined Z28.21 Gait instability R26.81 CPT Codes Advance Care Planning - Time spent: 16-45 minutes ([id number]) EKG - CPT: 13411-[id number], Complete ([id number]) Vision Screening - Vision Screenin - Vision Screening ([id number]) Additional Codes PHQ-9 - 47463 - PHQ-9 Billing: Yes ([id number]) Advance Care Planning Advance Care Planning discussion: Exists, not on file Date of discussion: 12/16/24 Who was present: self Forms completed: Health Care Proxy, MOLST and Living will Time spent: 16-45 minutes Actual minutes spent: 16
[2024-12-16 09:14] VITALS: BP 102/66; PULSE 75; RESP 12; TEMP 36.4; O2SAT 98; BMI 24.6
== END 2024-12-16 10:11 | disposition home or self-care (01) ==
LOC: HO.HMCFM 08:53
PROVIDERS: PCP Nurse Practitioner Family; Visit Provider Nurse Practitioner Family
DX: Z00.00 Encounter for general adult medical examination without abnormal findings (principal); E78.2 Mixed hyperlipidemia; M85.89 Other specified disorders of bone density and structure, multiple sites; E55.9 Vitamin D deficiency, unspecified; E60 Dietary zinc deficiency; Z82.49 Family history of ischemic heart disease and other diseases of the circulatory system; K76.89 Other specified diseases of liver; E28.319 Asymptomatic premature menopause; Z79.890 Hormone replacement therapy; Z80.3 Family history of malignant neoplasm of breast; R27.0 Ataxia, unspecified; R26.81 Unsteadiness on feet

== ENCOUNTER → 2024-12-16 08:53 | Outpatient (BNVA) | payer MEDICARE, BC, SELFPAY | PROVIDERS: PCP Nurse Practitioner Family; Visit Provider Nurse Practitioner Family | DX: Z00.00 Encounter for general adult medical examination without abnormal findings (principal); E78.5 Hyperlipidemia, unspecified; K76.89 Other specified diseases of liver; E55.9 Vitamin D deficiency, unspecified; D64.9 Anemia, unspecified; E60 Dietary zinc deficiency; F41.9 Anxiety disorder, unspecified; E78.2 Mixed hyperlipidemia; M85.89 Other specified disorders of bone density and structure, multiple sites; E28.319 Asymptomatic premature menopause; R27.0 Ataxia, unspecified; H55.00 Unspecified nystagmus; R74.8 Abnormal levels of other serum enzymes; Z80.3 Family history of malignant neoplasm of breast; Z78.0 Asymptomatic menopausal state; Z82.49 Family history of ischemic heart disease and other diseases of the circulatory system; Z79.890 Hormone replacement therapy | CPT/HCPCS: 83036; 93005; 96127; 99212; 99497 ==

== ENCOUNTER 2025-03-12 08:05 | Outpatient (REF) | payer MEDICARE, BC, SELFPAY ==
--- OUTSIDE RECORDS SUMMARY | 2025-03-12 08:11 | XMS_ITS | Data Portability ---
Author Organization [place] [facility],, RADHA ROBERT MD Address [address] [address] Care Team Providers Care Public Services Librarian Name Role Phone BRIAN LEMOS Primary Care Provider Assessment No assessment recorded. Plan of Treatment Reminders Order Date Submit Date Provider Last Modified By Organization Details Last Modified Time Details Appointments ANNUAL EXAM 2025 09:40A Arley Robert MD Not available Not available Not available Lab cytology report, thin prep, smear or scraping , cervical or vaginal 2023 024 [place] [facility] (Centralized Electronic Ordering - All Locations), Patient Can Go To The Location Of Their Choice, [id number] 09/14/2023 10:07:31 pap test, thinprep , cervical 2021 022 [facility], Cytopathology Service, [address] [place], [address], 09/15/2021 07:40:42 Referral None recorded . Procedures None recorded . Surgeries None recorded . Imaging MAMMO, screenin g, digital, bilatera l - Breast Aspirati on and/or Biopsy if needed 2023 024 [facility], [address], [place], [address], 01/17/2024 10:47:14 bone density 2023 024 [facility], [address], [address], [place], [address], 09/02/2024 10:41:24 MAMMO, screenin g, digital, bilatera l 2021 022 [facility] ([facility]), [address] [place], [address], 11/26/2021 09:43:36 bone density 2021 022 [facility] ([facility]), [address] [place], [address], 08/28/2023 07:20:08 Medication Orders estradio l 1 mg tablet 2024 025 [facility]armacy #1972, [address] [place] [address], [address], 11/05/2024 13:43:56 medroxyp rogester one 2.5 mg tablet 2024 025 [facility] #1972, [address] [place] [address], [address], 11/05/2024 13:43:57 medroxyp rogester one 2.5 mg tablet 2023 024 [facility]Pharmacy #[facility], [address] [place] [address], [address], 09/08/2023 09:55:42 estradio l 1 mg tablet 2023 024 [facility] #1972, [address] [place] [address], [address], 09/08/2023 09:55:41 estradio l 1 mg tablet 2022 023 [facility] #1972, [address] [place] [address], [address], 11/08/2022 08:46:23 medroxyp rogester one 2.5 mg tablet 2022 023 [facility]acy #1972, [address] [place], [address], 11/08/2022 08:46:23 estradio l 1 mg tablet 2021 022 [facility] #1972, [address] [place], [address], 09/01/2021 11:25:06 medroxyp rogester one 2.5 mg tablet 2021 [facility] #1972, [address] [place], [address], 09/01/2021 11:25:06 Patient TargetsNo targets recorded. Patient Instructions Encounter Date Encounter Id Patient Instructions Last Modified By Organization Details Last Modified Time 02/05/2021 [id number] costochondritis: care instructions Not available 02/05/2021 10:20:11 She is here [...] answered. Face to face discussion 30 minutes Not available 02/05/2021 09:41:45 09/01/2021 [id number] atrophic vaginit is: care instructions Not available 09/01/2021 11:25:00 learning about healthy weight Not available 09/01/2021 11:25:00 She is here [...] time postmenopausally. Not available 09/01/2021 11:24:26 11/08/2022 [id number] This visit is a phone telehealth visit. The patient consented to the visit by phone. The patient was at home at the time of the call and the provider and patient were the only people on the line. I was at [address] [place] [address], [address], [place], [place], at the time of the call. [...] 12 minutes. Not available 11/08/2022 08:52:52 09/08/2023 [id number] atrophic vaginit is: care instructions Not available 09/08/2023 09:36:24 learning about healthy weight Not available 09/08/2023 09:36:25 She is here [...] discovers any new mass in the breast. Not available 09/08/2023 09:55:28 11/05/2024 [id number] She is here to renew her HRT. She is down to 5 days a week, but lower than that and she has vasomotor symptoms. She is doing well and would like to stay on it. She appears to be doing well. We [...] at any time postmenopausally. Face to face discussion, chart review and coordination of care: 25 minutes Not available 11/05/2024 13:45:56 Reason for Referral None Reported. Results Created Date Observation Date Name Description Value Unit Range Abnormal Flag Note LastModifiedBy Organization Detail LastModifiedTime 09/02/19 22 09/01/2021 PAP1C ASE [id number] ThinP rep Pap, Image d: NEGAT СЕРГЕЙ FOR SQUAM OUS INTRA EPITH ELIAL LESIO N AND MALIG DRE . React сергей cellu bk bauer es. [place] blanca estro gen for patie nt's age and histo ry. Jameson Nielson r , CT( CP) (Case Scree kirill 09 09 2021) Radhames serrato M.D. [...] 6/8/2 0 neg. [z12. 4] Not Available [facility], Cytopathology Service [address] [facility], [place], [address], 09/10/2021 10:11:13 09/08/19 24 09/14/2023 IGP, RFX APTIM A HPV ASCU diagnosis: Commen t NEGAT СЕРГЕЙ FOR INTRA EPITH ELIAL LESIO N OR MALIG DRE . THIS SPECI MEN WAS RESCR EENED PART OF OUR QUALI TY CONTR OL PROGR AM. Not Available [facility] ([facility]) [address] [place], [address], 09/14/2023 10:07:31 09/08/19 24 09/14/2023 IGP, RFX APTIM A HPV ASCU specimen adequacy: Kenzie timmons Satis facto ry for evalu ation . Endoc ervic al and/o r squam ous metap lasti c cells (endo cervi schuyler compo nent) are prese nt. Not Available [facility] ([facility]) [address] [place], [address], 09/14/2023 10:07:31 09/08/19 24 09/14/2023 IGP, RFX APTIM A HPV ASCU clinician provided ICD10: Kenzie timmons Z12.4 Not Available [facility] ([facility]) [address] [place], [address], 09/14/2023 10:07:31 09/08/19 24 09/14/2023 IGP, RFX APTIM A HPV ASCU performed by: Kenzie andrews, Cytot echno logis t (ASCP ) Not Available [facility] ([facility]) [address] [place], [address], 09/14/2023 10:07:31 09/08/19 24 09/14/2023 IGP, RFX APTIM A HPV ASCU QC reviewed by: Kenzie Crain, Cytot echno logis t (ASCP ) Not Available [facility] ([facility]) [address] [place], [address], 09/14/2023 10:07:31 09/08/19 24 09/14/2023 IGP, RFX APTIM A HPV ASCU . . Not Available [facility] ([facility]) [address] [place], [address], 09/14/2023 10:07:31 09/08/19 24 09/14/2023 IGP, RFX [...] ts do occur . Not Available [facility] ([facility]) [address] [facility], [place], [address], 09/14/2023 10:07:31 09/08/19 24 09/14/2023 IGP, RFX APTIM A HPV ASCU test methodology: Commen t This liqui d based ThinP rep(R ) pap test was scree kirill with the use of an image guide david systludwig m. Not Available [facility] ([facility]) [address] [facility], [place], [address], 09/14/2023 10:07:31 09/08/19 24 09/14/2023 IGP, RFX APTIM A HPV ASCU . Commen t The HPV DNA refle x crite gabino were not met with this speci men resul t there fore, no HPV testi ng was perfo rmed. Not Available [facility] ([facility]) [address] [facility], [place], [address], 09/14/2023 10:07:31 02/03/20 21 02/02/2021 bone densi ty No observ ation record ed. [email or web address] Not Available 2020 09:18:06 02/03/20 21 03/13/2018 bone densi ty No observ ation record ed. Not Available 11/2020 14:02:29 11/27/19 22 11/26/2021 MAMMO , scree edna, digit al, bilat eral No observ ation record ed. Not Available 04/2021 09:50:25 01/12/20 23 01/11/2023 MAMMO , scree edna, digit al, bilat eral No observ ation record ed. [facility] [address] [place], [address], 01/11/2023 11:41:52 01/17/20 24 01/17/2024 MAMMO , scree edna, digit al, bilat eral No observ ation record ed. [facility] [address], [address], 01/17/2024 11:09:55 Result Notes None recorded. Problems Name Problem SNOMED Code Status Onset Date Resolution Date Notes Provider Name and Address Organization Details Recorded Time Atrophic vulvovaginitis 85895994 Active Radha Robert MD [address], [place], [address], [place] [facility], 6 08:14:33 Lichen sclerosus et atrophicus Active Radha Robert MD [address], [place], [address], [place] [facility], 6 08:14:33 Menopausal syndrome 421779578 Active Radha Robert MD [address], [place], [address], [place] [facility], 6 09:57:18 Osteopenia 982627474 Active 2020 Radha Robert MD [address], [place], [address], [place] [facility], 09:33:40 Breast lump 03908899 Active 2020 Radha Robert MD [address], [place], [address], [place] [facility], 09:33:50 Problem Notes None recorded. Procedures Surgical History Date Name Laterality Status Provider Name and Address Organization Details Recorded Time 1 Most Recent Mammogram completed Heidyparviz Bee in [facility], 08/25/2021 09:49:05 9 Most Recent Bone Density completed Heidy Evangelista Bee in [facility], 09/02/2019 10:16:07 5 [facility], 11/11/2011 08:06:14 Imaging Results None recorded. Procedure Notes None recorded. Medical Equipment None [...] TAKE 1 TABLET BY MOUTH EVERY DAY active Not Available Not Available No t Available prednisone 20 mg tablet 07/06 completed Not Available Not Available Not Available clindamycin HCl 150 mg capsule 07/06 completed Not Available Not Available Not Available zinc gluconate 30 mg tablet TAKE 1 TABLET BY MOUTH EVERY DAY. NOT COVERED active Not Available Not Available No t Available estradiol 1 mg tablet TAKE 1 TABLET BY MOUTH EVERY DAY active Not Available Not Available No t Available cephalexin 500 mg capsule active Not Available [...] Available Not Available Not Available amoxicillin 875 mg-carl m clavulanate 125 mg tablet 07/06 completed [...] No t Available Vitals Date Recorded Body height Body mass index (BMI) Body weight Heart rate Body temperature Systolic And Diastolic Provider Name and Address Organization Details Last Updated DateTime 2 161.29 cm 24.2 kg/m2 67196.9 g 84 /min 97.2 [degF] 111/59 mm[Hg] Heidy Bee in [facility], 2 09:33:04 Date Recorded Body temperature Body height Body mass index (BMI) Body weight Heart rate Systolic And Diastolic Provider Name and Address Organization Details Last Updated DateTime 4 97.6 [degF] 162.56 cm 24.2 kg/m2 72296.5 2 g 89 /min 123/55 mm[Hg] harshil Bee in [facility], 4 09:32:17 Date Recorded Body weight Body mass index (BMI) Body height Heart rate Systolic And Diastolic Provider Name and Address Organization Details Last Updated DateTime 11/05/2024 60027.06 g 23.9 kg/m2 162.56 cm 67 /min 117/66 mm[Hg] Heidy Bee in [facility], 11/05/2024 13:28:34 Date Recorded Body weight Body mass index (BMI) Body height Body temperature Heart rate Systolic And Diastolic Provider Name and Address Organization Details Last Updated DateTime 1 13445.5 2 g 24.6 kg/m2 161.29 cm 97.5 [degF] 76 /min 116/66 mm[Hg] Ronda Tillman [place] [facility], 09:15:43 Social History Question Answer Notes LastModified by Organizat ion Details LastModified Time Tobacco Smoking Status Never Smoker Not Available [facility] 01/28/2020 03:19:37 What Is Your Level Of Caffeine Consumption? Moderate [id number] Information not available 01/28/2020 In The 14 [...] Type Of Diet Are You Following? REGULAR [id number] Information n ot available 01/28/2020 Which Illicit Or Recreational Drugs Have You Used? No [id number] Information not available 01/28/2020 Do You Reside In Or Have You Traveled To An Area Where Ebola Virus Transmission Is Active? No [id number] Information not available 01/28/2020 Education Post Graduate Information not available 11/11/2011 What Is The Highest Grade Or Level Of School You Have Completed Or The Highest Degree You Have Received? [id number] Information not available 11/20/2020 Who Is Your [...] Date Of Your Most Recent Tobacco Screening? 11/05/2024 Information not available 11/05/2024 What Is Your Relationship Status? Information not available 09/01/2021 Are You Sexually Active? No [id number] Information not available 01/28/2020 How Much Tobacco Do You Smoke? No [id number] Information not available 01/28/2020 General Stress Level Low Information not available 09/01/2021 How Many Years Have You Smoked Tobacco? 0 [id number] Information not available 01/28/2020 Have You Recently (within The Last 12 Weeks, Or During A Current ) Traveled To Or Lived In A Zika-affected Area? No [place] Information not available 06/24/2016 Sex: Female Functional [...] used smokeless tobacco? Never used smokeless tobacco [id number] Information not available 01/28/2020 Are you currently employed? Yes Information not available 11/20/2020 Do you or have you ever used e-cigarettes or vape? Never used electronic cigarettes [id number] Information not available 01/28/2020 What is your exercise level? Occasional [id number] Information not available 01/28/2020 Mental Status Question Answer Note LastModified by Organization D etails LastModified Time Do you feel stressed (tense, restless, nervous, or anxious, or unable to sleep at night)? [id number] Information not available 11/20/2020 Family History Relationship Description Onset Age of this Age Resolved Age Notes LastModified by Organization Details LastModified Time Sister Malignant neoplasm of breast 49 52 previo usly record ed as Breast Cancer Not available 05/14/2014 08:21:56 Sister Malignant neoplasm of ovary previo usly record ed as Ovaria n Cancer Not available 06/11/2015 08:11:32 Paternal Aunt Malignant neoplasm of cervix uteri previo usly record ed as Cervic al Cancer Not available 06/11/2015 08:11:32 Father Malignant neoplastic disease larynx ,every where (previ ously record ed as Cancer ) Not available 06/11/2015 08:11:32 Father Myocardial infarction previo usly record ed as Heart Attack ([place]) Not available 06/11/2015 08:11:32 Notes:does not want [...] Organization Details Recorded Time pneumococcal, unspecified formulation 7 completed JOSIANE Harper in [facility], 06/24/2016 13:13:47 COVID-19, mRNA, LNP-S, PF, 30 mcg/0.3 mL dose 1 completed JOSIANE Rea in [facility], 11/05/2024 13:29:11 COVID-19, mRNA, LNP-S, bivalent, PF, 30 mcg/0.3 mL dose 2 completed Not Available [facility] 11/05/2024 13:26:19 Td (adult), 2 Lf tetanus toxoid, preservative free, adsorbed 1 completed Not Available [facility] 11/05/2024 13:26:19 COVID-19, mRNA, LNP-S, PF, jose-sucrose, 30 mcg/0.3 mL 3 completed Not Available [facility] 11/05/2024 13:26:19 pneumococcal polysaccharide PPV23 8 completed Not Available [facility] 11/05/2024 13:26:19 Pneumococcal conjugate PCV 13 6 completed Not Available [facility] 11/05/2024 13:26:19 Tdap 8 completed Not Available [facility] 11/05/2024 13:26:19 COVID-19, mRNA, LNP-S, PF, 30 mcg/0.3 mL dose 1 completed JOSIANE Rea in [facility], 11/05/2024 13:29:10 COVID-19, mRNA, LNP-S, PF, 30 mcg/0.3 mL dose 1 completed JOSIANE Rea in [facility], 11/05/2024 13:29:11 Past Encounters Encounter ID Performer Location Encounter Start Date Encounter Closed Date Diagnosis/Indication Diagnosis SNOMED-CT Code Diagnosis ICD10 Code Diagnosis IMO Codes Diagnosis Note [id number] MD RADHA Jason MD [address] [facility] [address] 11/11/2011 07:44:17 11/11/2011 13:05:11 [id number] MD RADHA Jason MD [address] [place] [address] 12/04/2012 07:38:55 12/04/2012 13:36:13 [id number] MD RADHA Jason MD [address] [place] [address] 05/14/2014 08:04:14 05/14/2014 09:05:32 Specialized medical examination 04743522 Screening for malignant neoplasm of rectum 470280302 Screening mammography 66722824 [id number] MD RADHA Jason MD [address] [place] [address] 06/11/2015 07:51:43 06/11/2015 10:43:28 Screening for malignant neoplasm of cervix 268828526 Z12.4 Screening mammography 24 280041 Z12.31 Menopausal syndrome 1237 28363 N95.9 [id number] MD RADHA Jason MD [address] [place] [address] [place] [address] 06/24/2016 13:00:18 06/24/2016 14:38:26 Screening for malignant neoplasm of cervix 853682920 Z12.4 Screening mammography 24 192916 Z12.31 Cares for self 304827517 Z76.89 [id number] MD RADHA Jason MD [address] [place] [address] [address] 07/06/2017 13:18:57 07/06/2017 14:46:33 Screening for malignant neoplasm of cervix 664593324 Z12.4 Screening mammography 24 403793 Z12.31 Lichen scl erosus et atrophicus 34283362 L90.0 [id number] MD RADHA Jaosn MD [address] [place] [address], [place] [address] 09/02/2019 10:06:05 09/02/2019 11:28:38 Screening for malignant neoplasm of cervix 631515453 Z12.4 Screening mammography 24 437566 Z12.31 Menopausal syndrome 1237 69213 N95.1 [id number] MD RADHA Jason MD [address] [place] [address] [place] [address] 11/20/2020 09:40:11 11/20/2020 12:41:18 Menopausal syndrome 330837819 N95.1 Atrophic vulvovaginitis 36918283 N95.2 [id number] MD RADHA Jason MD [address] [place] [address] [place] [address] 02/03/2021 09:13:28 02/03/2021 09:56:29 Osteopenia 047536721 M85.852 Breast lump 95753212 N63 .0 [id number] MD RADHA Jason MD [address] [place] [address] [place] [address] 02/05/2021 09:06:58 02/05/2021 10:26:06 Anterior chest wall pain 620667289 R07.89 Costal chondritis 228364 04 M94.0 Breast lump 91532413 N63 .23 [id number] MD RADHA Jason MD [address] [place] [address],[facility] [address] 09/01/2021 09:25:15 09/01/2021 11:29:10 Screening for malignant neoplasm of cervix 278054954 Z12.4 Screening mammography 24 305545 Z12.31 Screening for osteoporosis 478939252 N95.8 Menopausal syndrome 1237 96180 N95.8 [id number] MD RADHA Jason MD [address] [place] [address],[facility] [place] [address] 11/08/2022 08:38:37 11/08/2022 10:22:46 Menopausal syndrome 395632968 N95.8 [id number] MD RADHA Jason MD [address] [place] [address],[facility] [place] [address] 09/08/2023 09:28:39 09/08/2023 11:45:52 Screening for malignant neoplasm of cervix 752179385 Z12.4 Screening mammography 24 209389 Z12.31 Screening for osteoporosis 310612054 N95.8 Menopausal syndrome 1237 44022 N95.8 [id number] MD RADHA Jason MD [address] [place] [address],[facility] [place] [address] 11/05/2024 13:24:53 11/05/2024 14:14:41 Menopausal syndrome 772945507 N95.8 Health Concerns Section Related Observation LastModified by Organization Detai ls LastModified Time None Recorded Concern Status LastModified by Organization Details LastModified Time None Recorded Advance Directives Directive None Recorded Payers Insurance Date Sequence Insurance Name Policy Number Policy Schaffer Covered Member ID Schaffer Member ID Guarantor Name 11/02/2024 2 [place] Nasir Lawson [id number] Chelsey Lawson 11/02/2024 1 [place] [facility] Chelsey Lawson [id number] Chelsey Lawson Notes Date Note Type Note Provider Name and Address Organization Details Recorded Time 02/05/2021 text/html She is here for pain and mass that has been present under her left breast since 07/2020. She first noted it after she painted her bedroom and started lifting 1 pound hand weights. The pain is worse with movement or activity using those muscles in that area, and the lump comes and goes, like a swelling. Radha Robert MD [address] [facility],[address], [place], [address], [facility], 02/05/2021 10:21:06 09/01/2021 text/html She is here for annual exam, is doing well on her HRT and elects to continue. She has vasomotor symptoms if she misses a pill. Note from 2020: She is here for annual exam, is doing well, is retired from [employer].She appears to be doing well. She is doing well on HRT and elects to continue. She will call when she needs more aristocort. Radha Robert MD [address] [facility],[address], [place], [address], [facility] - [facility], 09/01/2021 11:25:06 11/08/2022 text/html This visit is a phone telehealth visit. The patient consented to the visit by phone. The patient was at home at the time of the call and the provider and patient were the only people on the line. I was at [address] [facility], [address], [place], [place], at the time of the call. She is taking HRT and doing well on it, she would like continue. She has shira taking it for more than 12 years. She does have hot flashes if she forgets to take it. Radha Robert MD [address] [facility],[address], [place], [address], [facility] - [facility], 11/08/2022 09:09:34 09/08/2023 text/html She is here for annual exam, is doing well on her HRT and elects to continue. She has vasomotor symptoms if she misses a pill. Radha Robert MD [address] [facility],[address], [place], [address], [place] - [facility], 09/08/2023 09:56:15 11/05/2024 text/html She is here to renew her HRT. She is down to 5 days a week, but lower than that and she has vasomotor symptoms. She is doing well and would like to stay on it. Radha Robert MD [address] [facility],[address], [place], [address], [place] [facility], 11/05/2024 14:09:57 OBGyn Episode No OBEpisode recorded.
[2025-03-12 08:45] LABS: Baso%MD 0.5 %; Eos%MD 2.9 %; Hematocrit 39.1 % (37.0-47.0); Hemoglobin 12.6 g/dl (12.0-16.0); IG%MD 0.2 %; Lymph%MD 26.9 %; Mean Corpuscular HGB Conc 32.2 g/dl (31.0-35.0); Mean Corpuscular Hemoglobin 31.1 pg (27.0-33.0); Mean Corpuscular Volume 96.5 fL (80.0-98.0); Mono%MD 10.2 %; NRBC Abs Auto 0.000 X10*3/uL (0.0-0.012); NRBC Pct Auto 0.0 /100WBC (0.0-0.2); Neut%MD 59.3 %; Platelet Count 246 X10*3/uL (160-400); Red Blood Count 4.05 X10*6/uL (4.20-5.50); White Blood Count 5.6 X10*3/uL (4.8-10.8)
[2025-03-12 09:02] LABS: Iron 89 mcg/dL (30-160); Percent Iron Saturation 31 % (15-50); Total Iron Binding Capacity 289 mcg/dL (228-428); Unsaturated Iron Binding 200 ug/dL
[2025-03-12 09:18] LABS: Ferritin 94 ng/mL (10-250)
[2025-03-12 11:22] LABS: Basophils Abs Manual 0.1 X10*3/uL (0.0-0.2); Basophils Percent Manual 1 % (0-2); Eosinophils Absolute Manual 0.3 X10*3/uL (0.0-0.4); Eosinophils Percent Manual 5 % (0-4); Lymphocytes Absolute Manual 1.3 X10*3/uL (1.2-4.9); Lymphocytes Percent Manual 24 % (20-40); Metamyelocytes Absolute 0.1 X10*3/uL; Metamyelocytes Percent 1 %; Monocytes Absolute Manual 0.6 X10*3/uL (0.1-1.2); Monocytes Percent Manual 10 % (2-11); Neutrophils Percent Manual 59 % (45-73)
[2025-03-12 11:25] LABS: Acanthocytes 1+ (0-2) /OIF; Band Neutrophils Percent 0 % (3-5); Burr Cells 2+ (3-5) /OIF; Neutrophils Absolute Manual 3.3 X10*3/uL (2.0-8.3); Ovalocytes 1+ (5-14) /OIF; RBC Morphology NOTED; Tear Drop Cells 1+ (0-2) /OIF
== END 2025-03-12 08:06 | disposition home or self-care (01) ==
LOC: HO.LAB 08:05
PROVIDERS: PCP Nurse Practitioner Family; Visit Provider Nurse Practitioner Family
DX: E60 Dietary zinc deficiency (principal); D72.819 Decreased white blood cell count, unspecified; Z13.0 Encounter for screening for diseases of the blood and blood-forming organs and certain disorders involving the immune mechanism
CPT/HCPCS: 36415; 82525; 82728; 83540; 84630; 85007; 85027

== ENCOUNTER 2025-03-26 09:23 | Outpatient (AMB) | payer MEDICARE, BC, SELFPAY ==
--- NOTE | 2025-03-26 09:40 | A.OFFPC_ITS ---
Vital Signs 03/26/25 09:43 Height 5 ft 4 in Weight 143 lb 8 oz BMI 24.6 BP 114/54 L Blood Pressure Location Lt brachial Position Sitting Respiration 16 Pulse 69 Pulse Source Pulse Oximeter Temp 97.9 F Temp Source Oral Pulse Oximetry (%) 100 Oxygen Delivery Method Room Air Intake Visit Reasons: 3-4 mo routine fu, labs 1 week before Intake Note: patient here for 3-4 wks follow up and labs Class C Driver Required: No Is last menstrual period known: No Post menopausal: No Patient : No Allergies No Known Allergies Allergy (Verified 03/26/25 09:43) Medication List - Last Reconciled 03/26/25 by Sofie Barbosa, MANAGER CULTURE-BC calcium carbonate-vitamin D3 600 mg-10 mcg (400 unit) (Calcium 600 with Vitamin D3) tabs PO cholecalciferol (vitamin D3) 50 mcg PO DAILY estradiol 1 mg PO DAILY latanoprost 0.005% 1 drp ophthalmic (eye) DAILY medroxyprogesterone 2.5 mg PO DAILY multivitamin with iron 1 tab PO DAILY zinc gluconate 30 mg PO DAILY Tobacco use date assessed: 03/26/25 Fall risk assessment: No Falls in past year Last assessed Fall Risk: 03/26/25 Dental Screening Dental Screen Date: 03/26/25 Did you have a dental visit in the last 12 months?: Yes Did you have a dental problem in the last 6 months where you did not have access to dental care?: No Was dental information given to patient?: Patient has dentist HPI HPI Comments History of Present Illness Details 74 y/o F with HLD, hepatic cyst, osteope charly, family hx breast ca in sister, family hx of CAD, palpitations (holter sinus tach 2022, echo and stress done), premature menopause, Vit d def, glaucoma SurgHx: bilat cataract removal, tonsillectomy, tubal ligation, c section x 2, 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 Mild anemia: - The patient has a history of mild anem ia and has been taking a multivitamin with iron. She takes the supplement 3 to 4 times per week due to associated constipation. - Recent labs show her red blood cell co unt has improved from 3.91 to 4.05, although it remains slightly below the normal value of 4.2. - Her overall iron profile has improved. Zinc deficiency: - The patient had a history of abnormal alkaline phosphatase, which was attributed to a zinc deficiency. - She has been taking zinc gluconate, th ough she does not remember to take it every day and estimates her adherence at 4 out of 7 days per week. - Her zinc level has improved to 77 from a previous level of 71, and her copper level remains normal at 113, indicating no depletion from the zinc supplementation. Balance disturbance: - The patient has a history of balance d isturbances, for which she was previously referred to physical therapy. - These episodes of dizziness have becom e less frequent. - She experienced an episode of being of f-balance upon standing today after sitting for 20 minutes today before coming in. - She admits to poor fluid intake, disli mynor plain water, and primarily drinking coffee in the morning, which may contribute to these symptoms. Glaucoma and severe xerophthalmia: - An eye exam in December revealed glauco ma. - She experienced symptoms of unfocused vision and diplopia at night when tired, which were attributed to severe dry eye. - Her symptoms improved after a course o f prednisone drops, and she is now using Refresh drops for maintenance. - She was prescribed glasses with prisms , which she found to be ineffective. Fall prevention: - The patient has implemented several fa ll prevention measures at home. - She has safety rails in the tub and ra ilings on her stairs, both of which she uses regularly. - Her home has hardwood floors with larg e, anchored area rugs and no scatter rugs, minimizing trip hazards. - The only time she stumbles is when jonathan kendrick with her grandchildren. Past Medical History - Mild anemia - History of Vitamin D deficiency - History of zinc deficiency with associ ated abnormal alkaline phosphatase - Glaucoma - Severe xerophthalmia - Balance disturbances Review of Systems - General: Reports stable weight and fee ling well. - Eyes: Reports history of glaucoma and severe dry eye, which is now managed with maintenance drops. - Neurological: Reports infrequent episo lobo of dizziness and imbalance, particularly upon standing after prolonged sitting. - Gastrointestinal: Reports having regul ar bowel movements. Physical Exam General: Well developed, well nourished, in no acute distress. Appears stated age. Head: Normocephalic, atraumatic. Eyes: Pupils are equal, round and reactive to light and accommodation. Conjunctivae are clear. Vision grossly normal. History of glaucoma and severe dry eye, currently managed with refresh drops. Lungs: Clear to auscultation bilaterally. No rales, rhonchi or wheeze noted. Good air flow in all enrique. Heart: Regular rate and rhythm. No murmurs, click, rubs or gallops are noted. Neuro: Exam nonfocal Psych: Mood and affect appropriate. Reports less frequent episodes of dizziness, possibly related to dehydration. Results - Labs (03/12/25): - CBC: White blood cell count 5.6 (jeyson l), red blood cell count 4.05 (improved but still low). - Iron profile: Improved and looks good. - Zinc: 77 (improved from 71). - Copper: 113 (normal). - Alkaline phosphatase: Not repeated, as it had normalized on the previous draw. Medical Decision Making The patient is a 74-year-old female presenting for a routine follow-up. Her lab results demonstrate improvement in her mild anemia and zinc deficiency with her current supplement regimen. The red blood cell count is trending upward, and her zinc level has increased without adversely affecting her copper level. Therefore, continuing the multivitamin with iron and the zinc supplement at their current frequencies is appropriate, as it is effective and well-tolerated. Her intermittent balance disturbances are less frequent and appear to be orthostatic in nature, likely exacerbated by inadequate hydration. Patient ed ucation was provided regarding the importance of increasing fluid intake to manage these symptoms. Her proactive approach to fall prevention, including significant home safety modifications, is noted and encouraged. The patient's ophthalmological conditions, including glaucoma and dry eye, are stable and under the management of her eye doctor. The plan is to continue the current management, with a follow-up visit scheduled in nine months for her annual wellness exam. Repeat labs, including CBC, zinc, and copper, will be ordered prior to that visit to monitor her progress. Plan 1. Mild Anemia, Resolving - The patient's labs show improvement wi th her current regimen. She will continue taking her multivitamin with iron a few times per week, as this dose is effective and does not cause significant constipation. There is no need to increase the frequency at this time. - Labs, including a CBC, will be repeate d before her next visit in nine months. 2. Zinc Deficiency, Resolving - The patient's zinc levels have improve d with supplementation approximately four times a week, and her copper levels remain normal. She will continue this regimen. - Zinc and copper levels will be recheck ed with her next set of labs, which should be drawn at the [facility]. 3. Balance Disturbance - The patient's episodes of dizziness ar e infrequent and likely related to o rthostasis secondary to dehydration. She was counseled on the importance of maintaining adequate fluid intake throughout the day. 4. 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 She is currently using Refresh drops for maintenance of her dry eye. She will continue to follow up with her eye doctor as needed. 5. Health Maintenance - The patient will continue with her [employer] home safety measures for fall prevention. - A follow-up visit is scheduled in nine months for her annual wellness exam. - The patient was advised to reach out i f her health status changes or if she does not feel well before her next scheduled appointment. Patient Instructions - Continue taking your multivitamin with iron a few times a week. Since your lab numbers are improving, you do not need to take it more often, as this could cause constipation. - Continue taking your zinc supplement a bout four times a week. - Try to drink more fluids, such as wate r, throughout the day. This may help with feeling dizzy when you stand up. - Before your next visit, please go to [facility] to have your blood work done. This is necessary because some of the tests cannot be processed from our office. - We will see you back in about nine mon ths for your next check-up. - If you have any changes in your health or begin to feel unwell before your next scheduled appointment, please call our office. Consent Patient was informed and verbally consented to the use of an ambient scribe for clinic note documentation during this visit. Total time spent caring for the patient today was 30 minutes. This includes time spent before the visit reviewing the chart, time spent during the visit, and time spent after the visit on documentation, reviewing laboratory results, diagnostic imaging, medications, performing a medically necessary evaluation, counseling on diagnoses, care coordination, ordering appropriate tests, ordering appropriate medications, review of tests performed by other providers, reporting test results with the patient, communication with other healthcare providers. [facility] Medical History (Updated 03/26/25 @ 11:51 by Sofie Barbosa [facility]) History of screening mammography (~12/2023) No pertinent past medical history Surgical History (Updated 07/30/24 @ 07:43 by JOHNATHON Cohn) History of colonoscopy (~2022) Family History (Updated 07/30/24 @ 10:52 by Gale Pardo MA) Father Cardiovascular disease Throat cancer Sister Breast cancer Social History (Updated 07/30/24 @ 10:50 by Gale Pardo MA) Household Members: Spouse Both parents involved: No Caregiver staying overnight: No Housing: House Are you a primary respiratory care program director to a significant other at home: No Do you presently have visiting nurse or other home services: No 75 years or older and lives alone: No Alcohol intake: never Patient Tobacco Use Status: Never used Tobacco e-Cigarette/Vaping Use: Never Used Second Hand Smoke Exposure: No service: No Current occupational status: retired Cognitive needs: No Hearing needs: No Vision needs: No Questionnaire Thrive Questionnaire Date Thrive assessed: 07/24/24 I am a: Patient What is your living situation today?: I have a steady place to live Within the past 12 months, did the food you bought not last and you didn't have the money to get more?: Never true Within the past 12 months, did you worry whether your food would run out before you got money to buy more?: Never true Do you have trouble paying for medicines?: No Do you have trouble getting transportation to medical appointments?: No Do you have trouble paying your heating and electricity bill?: No Do you have trouble taking care of your child, family member or friend?: No Do you have trouble with day-to-day activities such as bathing, preparing meals, shopping, managing finances, etc.?: No Are you currently unemployed and looking for a job?: No Are you interested in more education?: No Currently or been in a relationship where the following occur: No concerns reported THRIVE Score: 0 DILLON-7 AMB Questionnaire DILLON-7 Date DILLON - 7 assessed: 07/30/24 Source: Developed by Drs. Sanchez Shah, Sherri Mejia, Jaun Silva and colleagues, with an educational no from [email or web address]. Physical exam (Primary Care) Vital Signs: Last Vital Signs Temp 97.9 F 03/26/25 09:43 Pulse 69 03/26/25 09:43 Resp 16 03/26/25 09:43 BP 114/54 L 03/26/25 09:43 Pulse Ox 100 03/26/25 09:43 Oxygen Delivery Method Room Air 03/26/25 09:43 BMI result Body Mass Index 24.6 Tobacco/Smoking Status: Tobacco use Status Tobacco use date assessed 03/26/25 03/26/25 09:44 Patient Tobacco Use Status Never used Tobacco 03/26/25 09:42 e-Cigarette/Vaping Use Never Used 03/26/25 09:42 Thrive Assessment: Date of Thrive Assessment Date Thrive assessed 07/24/24 03/26/25 09:42 Currently or been in a relationship where the following occur: No concerns reported Results Reviewed Results Reviewed: Laboratory 03/12/25 Result Units Range Interpretation Provider Comments White Blood Count 5.6 X10*3/uL (4.8-10.8) Red Blood Count 4.05 X10*6/uL (4.20-5.50) Low Hemoglobin 12.6 g/dl (12.0-16.0) Hematocrit 39.1 % (37.0-47.0) Mean Corpuscular Volume 96.5 fL (80.0-98.0) Mean Corpuscular Hemoglobin 31.1 pg (27.0-33.0) Mean Corpuscular Hemoglobin Concent 32.2 g/dl (31.0-35.0) Red Cell Distribution Width 12.8 % (11.0-16.0) Platelet Count 246 X10*3/uL (160-400) Mean Platelet Volume 9.4 fL (9.4-12.3) Nucleated RBC Absolute Count (auto) 0.000 X10*3/uL (0.0-0.012) Nucleated Red Blood Cells % (auto) 0.0 /100WBC (0.0-0.2) Neutrophils % (Manual) 59 % (45-73) Band Neutrophils % 0 % (3-5) Low Lymphocytes % (Manual) 24 % (20-40) Monocytes % (Manual) 10 % (2-11) Eosinophils % (Manual) 5 % (0-4) High Basophils % (Manual) 1 % (0-2) Metamyelocytes % 1 % Absolute Neutrophils (Manual) 3.3 X10*3/uL (2.0-8.3) Lymphocytes # (Manual) 1.3 X10*3/uL (1.2-4.9) Monocytes # (Manual) 0.6 X10*3/uL (0.1-1.2) Eosinophils # (Manual) 0.3 X10*3/uL (0.0-0.4) Basophils # (Manual) 0.1 X10*3/uL (0.0-0.2) Metamyelocytes # 0.1 X10*3/uL Platelet Estimate NORMAL (NORMAL) Platelet Morphology Comment NORMAL Red Blood Cell Morphology NOTED Tear Drop Cells 1+ (0-2) /OIF Ovalocytes 1+ (5-14) /OIF [place] Cells 2+ (3-5) /OIF Acanthocytes 1+ (0-2) /OIF Iron Level 89 mcg/dL (30-160) Total Iron Binding Capacity 289 mcg/dL (228-428) Percent Iron Saturation 31 % (15-50) Unsaturated Iron Binding 200 ug/dL Ferritin 94 ng/mL (10-250) Laboratory Result Units Range Interpretation Provider Comments Serum Copper 113 mcg/dL (70-175) Zinc Level 77 mcg/dL (60-130) Coding Level of Care Code Est Pt Level 4 (06907) Add On Problem Visit Only Diagnoses Osteopenia of multiple sites M85.89 Osteopenia location: multiple sites Vitamin D deficiency E55.9 Low serum alkaline phosphatase R74.8 Low zinc level E60 Mild anemia D64.9 Glaucoma H40.9 Assessment & Plan Assessment & Plan (1) Osteopenia: Code(s): M85.80 - Other specified disorders of bone density and structure, unspecified site Category: Medical Qualifiers: Osteopenia location: multiple sites Qualified Code(s): M85.89 - Other specified disorders of bone density and structure, multiple sites (2) Vitamin D deficiency: Code(s): E55.9 - Vitamin D deficiency, unspecified Category: Medical (3) Low serum alkaline phosphatase: Code(s): R74.8 - Abnormal levels of other serum enzymes Category: Medical (4) Low zinc level: Code(s): E60 - Dietary zinc deficiency Category: Medical (5) Mild anemia: Code(s): D64.9 - Anemia, unspecified Category: Medical (6) Glaucoma: Comment: normal pressure Dr Dave 01/18/25 Code(s): H40.9 - Unspecified glaucoma Category: Medical Plan , Orders: Orders Complete Blood Count Man Dif 11/25/25 D64.9 - Anemia, unspecified, E55.9 - Vitamin D deficiency, unspecified, E60 - Dietary zinc deficiency, E78.2 - Mixed hyperlipidemia, M85.89 - Other specified disorders of bone density and structure, multiple sites, R74.8 - Abnormal levels of other serum enzymes IRON PROFILE 11/25/25 D64.9 - Anemia, unspecified, E55.9 - Vitamin D deficiency, unspecified, E60 - Dietary zinc deficiency, E78.2 - Mixed hyperlipidemia, M85.89 - Other specified disorders of bone density and structure, multiple sites, R74.8 - Abnormal levels of other serum enzymes Microalbumin, Random (w Creat) 11/25/25 D64.9 - Anemia, unspecified, E55.9 - Vitamin D deficiency, unspecified, E60 - Dietary zinc deficiency, E78.2 - Mixed hyperlipidemia, M85.89 - Other specified disorders of bone density and structure, multiple sites, R74.8 - Abnormal levels of other serum enzymes Vitamin B12 and Folate 11/25/25 D64.9 - Anemia, unspecified, E55.9 - Vitamin D deficiency, unspecified, E60 - Dietary zinc deficiency, E78.2 - Mixed hyperlipidemia, M85.89 - Other specified disorders of bone density and structure, multiple sites, R74.8 - Abnormal levels of other serum enzymes Copper, serum 11/25/25 D64.9 - Anemia, unspecified, E55.9 - Vitamin D deficiency, unspecified, E60 - Dietary zinc deficiency, E78.2 - Mixed hyperlipidemia, M85.89 - Other specified disorders of bone density and structure, multiple sites, R74.8 - Abnormal levels of other serum enzymes Ferritin 11/25/25 D64.9 - Anemia, unspecified, E55.9 - Vitamin D deficiency, unspecified, E60 - Dietary zinc deficiency, E78.2 - Mixed hyperlipidemia, M85.89 - Other specified disorders of bone density and structure, multiple sites, R74.8 - Abnormal levels of other serum enzymes Lipid Panel 11/25/25 D64.9 - Anemia, unspecified, E55.9 - Vitamin D deficiency, unspecified, E60 - Dietary zinc deficiency, E78.2 - Mixed hyperlipidemia, M85.89 - Other specified disorders of bone density and structure, multiple sites, R74.8 - Abnormal levels of other serum enzymes Vitamin D 25-OH Total 11/25/25 D64.9 - Anemia, unspecified, E55.9 - Vitamin D deficiency, unspecified, E60 - Dietary zinc deficiency, E78.2 - Mixed hyper lipidemia, M85.89 - Other specified disorders of bone density and structure, multiple sites, R74.8 - Abnormal levels of other serum enzymes Zinc 11/25/25 D64.9 - Anemia, unspecified, E55.9 - Vitamin D deficiency, unspecified, E60 - Dietary zinc deficiency, E78.2 - Mixed hyperlipidemia, M85.89 - Other specified disorders of bone density and structure, multiple sites, R74.8 - Abnormal levels of other serum enzymes
--- OUTSIDE RECORDS SUMMARY | 2025-03-26 09:40 | XMS_ITS | Data Portability ---
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 Plan of Treatment Reminders Order Date Submit Date Provider Last Modified By Organization Details Last Modified Time Details Appointments ANNUAL EXAM 2025 09:40A Arley Robert MD Not available Not available Not available Lab cytology report, thin prep, smear or scraping , cervical or vaginal 2023 024 [place] [facility] (Centralized Electronic Ordering - All Locations), Patient Can Go To The Location Of Their Choice, [address] 09/14/2023 10:07:31 pap test, thinprep , cervical 2021 022 [facility], Cytopathology Service, [address] [place], [address], 09/15/2021 07:40:42 Referral None recorded . Procedures None recorded . Surgeries None recorded . Imaging MAMMO, screenin g, digital, bilatera l - Breast Aspirati on and/or Biopsy if needed 2023 024 [facility] Orders, [address], [address], [place], [address], 01/17/2024 10:47:14 bone density 2023 024 [facility] Orders, [address], [address], [place], [address], 09/02/2024 10:41:24 MAMMO, screenin g, digital, bilatera l 2021 022 [facility] ([place] [facility]), [address] [place], [address], 11/26/2021 09:43:36 bone density 2021 022 [facility] ([place] [facility]), [address] [place], [address], 08/28/2023 07:20:08 Medication Orders estradio l 1 mg tablet 2024 025 [facility]/Pharmacy #1972, [address] [place] [address], [address], 11/05/2024 13:43:56 medroxyp rogester one 2.5 mg tablet 2024 025 [facility]/Pharmacy #1972, [address] [place] [address], [address], 11/05/2024 13:43:57 medroxyp rogester one 2.5 mg tablet 2023 024 [facility]/Pharmacy #Counts include 234 beds at the [facility], [address] [place] [address], [address], 09/08/2023 09:55:42 estradio l 1 mg tablet 2023 024 [facility]/Pharmacy #1972, [address] [place] [address], [address], 09/08/2023 09:55:41 estradio l 1 mg tablet 2022 023 [facility]/Pharmacy #1972, [address] [place] [address], [address], 11/08/2022 08:46:23 medroxyp rogester one 2.5 mg tablet 2022 023 [facility]/Pharmacy #1972, [address] [place], [address], 11/08/2022 08:46:23 estradio l 1 mg tablet 2021 022 [facility]/Pharmacy #1972, [address] [place], [address], 09/01/2021 11:25:06 medroxyp rogester one 2.5 mg tablet 2021 [facility]/Pharmacy #1972, [address] [place], [address], 09/01/2021 11:25:06 Patient TargetsNo targets recorded. Patient Instructions Encounter Date Encounter Id Patient Instructions Last Modified By Organization Details Last Modified Time 02/05/2021 [id number] costochondritis: care instructions Not available 02/05/2021 10:20:11 [...] 30 minutes Not available 02/05/2021 09:41:45 09/01/2021 [id number] atrophic vaginit is: care instructions Not available [...] time postmenopausally. Not available 09/01/2021 11:24:26 11/08/2022 [id number] This visit is a phone telehealth visit. The patient consented to the visit by phone. The patient was at home at the time of the call and the provider and patient were the only people on the line. I was at [address] [place] [address], [address], [place], [place], at the time of the call. [...] 12 minutes. Not available 11/08/2022 08:52:52 09/08/2023 [id number] atrophic vaginit is: care instructions Not available [...] the breast. Not available 09/08/2023 09:55:28 11/05/2024 [id number] She is here to renew her HRT. [...] Detail LastModifiedTime 09/02/19 22 09/01/2021 PAP1C ASE [email or web address] ThinP rep Pap, Image d: NEGAT СЕРГЕЙ FOR SQUAM OUS INTRA EPITH ELIAL LESIO N AND MALIG DRE . React сергей cellu bk bauer es. Totz blanca estro gen for patie nt's age [...] 6/8/2 0 neg. [z12. 4] Not Available [facility], Cytopathology Service [address] [facility], [place], [address], 09/10/2021 10:11:13 09/08/19 24 09/14/2023 IGP, RFX APTIM A HPV ASCU diagnosis: Commen t NEGAT СЕРГЕЙ FOR INTRA EPITH ELIAL LESIO N OR MALIG DRE . THIS SPECI MEN WAS RESCR EENED PART OF OUR QUALI TY CONTR OL PROGR AM. Not Available [facility] ([facility]) [address] [place], [address], 09/14/2023 10:07:31 09/08/19 24 09/14/2023 IGP, RFX APTIM A HPV ASCU specimen adequacy: Kenzie timmons Satis facto ry for evalu ation . Endoc ervic al and/o r squam ous metap lasti c cells (endo cervi schuyler compo nent) are prese nt. Not Available [facility] ([facility]) [address] [place], [address], 09/14/2023 10:07:31 09/08/19 24 09/14/2023 IGP, RFX APTIM A HPV ASCU clinician provided ICD10: Kenzie timmons Z12.4 Not Available [facility] ([facility]) [address] [place], [address], 09/14/2023 10:07:31 09/08/19 24 09/14/2023 IGP, RFX APTIM A HPV ASCU performed by: Kenzie andrews, Cytot echno logis t (ASCP ) Not Available [facility] ([facility]) [address] [place], [address], 09/14/2023 10:07:31 09/08/19 24 09/14/2023 IGP, RFX APTIM A HPV ASCU QC reviewed by: Kenzie Crain, Cytot echno logis t (ASCP ) Not Available [facility] ([facility]) [address] [place], [address], 09/14/2023 10:07:31 09/08/19 24 09/14/2023 IGP, RFX APTIM A HPV ASCU . . Not Available [facility] ([facility]) [address] [place], [address], 09/14/2023 10:07:31 09/08/19 24 09/14/2023 IGP, RFX [...] ts do occur . Not Available [facility] ([facility]) [address] [facility], [place], [address], 09/14/2023 10:07:31 09/08/19 24 09/14/2023 IGP, RFX APTIM A HPV ASCU test methodology: Commen t This liqui d based ThinP rep(R ) pap test was scree kirill with the use of an image guide david systludwig m. Not Available [facility] ([facility]) [address] [facility], [place], [address], 09/14/2023 10:07:31 09/08/19 24 09/14/2023 IGP, RFX APTIM A HPV ASCU . Commen t The HPV DNA refle x crite gabino were not met with this speci men resul t there fore, no HPV testi ng was perfo rmed. Not Available [facility] ([facility]) [address] [facility], [place], [address], 09/14/2023 10:07:31 02/03/20 21 02/02/2021 bone densi [...] bilat eral No observ ation [facility]. [facility] [address] [place], [address], 01/11/2023 11:41:52 01/17/20 24 01/17/2024 MAMMO , scree edna, digit al, bilat eral No observ ation [facility]. [facility] [address], [address], 01/17/2024 11:09:55 Result Notes None recorded. Problems Name Problem SNOMED Code Status Onset Date Resolution Date Notes Provider Name and Address Organization Details Recorded Time Atrophic vulvovaginitis 50209905 Active Radha Robert MD [address], [place], [address], [place] [facility], 6 08:14:33 Lichen sclerosus et atrophicus Active Radha Robert MD [address], [place], [address], [place] [facility], 6 08:14:33 Menopausal syndrome 301222234 Active Radha Robert MD [address], [place], [address], [place] [facility], 6 09:57:18 Osteopenia 680203700 Active 2020 Radha Robert MD [address], [place], [address], [place] [facility], 09:33:40 Breast lump 17717029 Active 2020 Radha Robert MD [address], [place], [address], [place] [facility], 09:33:50 Problem Notes None recorded. Procedures Surgical History Date Name Laterality Status Provider Name and Address Organization Details Recorded Time 1 Most Recent Mammogram completed Heidyparviz Bee in [facility], 08/25/2021 09:49:05 9 Most Recent Bone Density completed Heidy Evangelista Bee in [facility], 09/02/2019 10:16:07 5 [facility], 11/11/2011 08:06:14 Imaging Results None recorded. [...] Updated DateTime 2 161.29 cm 24.2 kg/m2 68668.9 g 84 /min 97.2 [degF] 111/59 mm[Hg] Heidy Bee in [facility], 2 09:33:04 Date Recorded Body temperature Body height Body mass index (BMI) Body weight Heart rate Systolic And Diastolic Provider Name and Address Organization Details Last Updated DateTime 4 97.6 [degF] 162.56 cm 24.2 kg/m2 80771.5 2 g 89 /min 123/55 mm[Hg] harshil Bee in [facility], 4 09:32:17 Date Recorded Body weight Body mass index (BMI) Body height Heart rate Systolic And Diastolic Provider Name and Address Organization Details Last Updated DateTime 11/05/2024 18932.06 g 23.9 kg/m2 162.56 cm 67 /min 117/66 mm[Hg] Heidy Bee in [facility], 11/05/2024 13:28:34 Date Recorded Body weight Body mass index (BMI) Body height Body temperature Heart rate Systolic And Diastolic Provider Name and Address Organization Details Last Updated DateTime 1 48708.5 2 g 24.6 kg/m2 161.29 cm 97.5 [degF] 76 /min 116/66 mm[Hg] Ronda Tillman [place] - [facility], 09:15:43 Social History Question Answer Notes LastModified by Organizat ion Details LastModified Time Tobacco Smoking Status Never Smoker Not Available [facility] 01/28/2020 03:19:37 What Is Your Level Of Caffeine Consumption? Moderate [id number] Information not available 01/28/2020 In The 14 [...] Type Of Diet Are You Following? REGULAR [id number] Information n ot available 01/28/2020 Which Illicit Or Recreational Drugs Have You Used? No [id number] Information not available 01/28/2020 Do You Reside In Or Have You Traveled To An Area Where Ebola Virus Transmission Is Active? No [id number] Information not available 01/28/2020 Education Post Graduate Information not available 11/11/2011 What Is The Highest Grade Or Level Of School You Have Completed Or The Highest Degree You Have Received? [id number] Information not available 11/20/2020 Who Is Your [...] available 09/01/2021 Are You Sexually Active? No [id number] Information not available 01/28/2020 How Much Tobacco Do You Smoke? No [id number] Information not available 01/28/2020 General Stress Level Low Information not available 09/01/2021 How Many Years Have You Smoked Tobacco? 0 [id number] Information not available 01/28/2020 Have You Recently (within The Last 12 Weeks, Or During A Current ) Traveled To Or Lived In A Zika-affected Area? No Constant [employer] Information not available 06/24/2016 Sex: Female Functional [...] used smokeless tobacco? Never used smokeless tobacco [id number] Information not available 01/28/2020 Are you currently employed? Yes Information not available 11/20/2020 Do you or have you ever used e-cigarettes or vape? Never used electronic cigarettes [id number] Information not available 01/28/2020 What is your exercise level? Occasional [id number] Information not available 01/28/2020 Mental Status Question Answer Note LastModified by Organization D etails LastModified Time Do you feel stressed (tense, restless, nervous, or anxious, or unable to sleep at night)? [id number] Information not available 11/20/2020 Family History Relationship [...] previo usly record ed as Heart Attack ([place]) Not available 06/11/2015 08:11:32 Notes:does not want to do br ca testing. 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 Y Thyroid Problems N Kidney or Bladder Problems N Depression N GI Problems N Lung Disease N Defects or Inherited Disease N Anemia N History of Ovarian Cancer N History of Breast Cancer N FERNANDA [...] unspecified formulation 7 completed JOSIANE Harper in [facility], 06/24/2016 13:13:47 COVID-19, mRNA, LNP-S, PF, 30 mcg/0.3 mL dose 1 completed JOSIANE Rea in [facility], 11/05/2024 13:29:11 COVID-19, mRNA, LNP-S, bivalent, PF, 30 mcg/0.3 mL dose 2 completed Not Available [facility] 11/05/2024 13:26:19 Td (adult), 2 Lf tetanus toxoid, preservative free, adsorbed 1 completed Not Available [facility] 11/05/2024 13:26:19 COVID-19, mRNA, LNP-S, PF, jose-sucrose, 30 mcg/0.3 mL 3 completed Not Available [facility] 11/05/2024 13:26:19 pneumococcal polysaccharide PPV23 8 completed Not Available [facility] 11/05/2024 13:26:19 Pneumococcal conjugate PCV 13 6 completed Not Available [facility] 11/05/2024 13:26:19 Tdap 8 completed Not Available [facility] 11/05/2024 13:26:19 COVID-19, mRNA, LNP-S, PF, 30 mcg/0.3 mL dose 1 completed JOSIANE Rea in [facility], 11/05/2024 13:29:10 COVID-19, mRNA, LNP-S, PF, 30 mcg/0.3 mL dose 1 completed JOSIANE Rea in [facility], 11/05/2024 13:29:11 Past Encounters Encounter ID Performer Location Encounter Start Date Encounter Closed Date Diagnosis/Indication Diagnosis SNOMED-CT Code Diagnosis ICD10 Code Diagnosis IMO Codes Diagnosis Note [id number] MD RADHA Jason MD [address] [place],[address] [place] [address] 11/11/2011 07:44:17 11/11/2011 13:05:11 [id number] MD RADHA Jason MD [address] [place] [place] [address] 12/04/2012 07:38:55 12/04/2012 13:36:13 [id number] MD RADHA Jason MD [address] [place] [place] [address] 05/14/2014 08:04:14 05/14/2014 09:05:32 Specialized medical examination 47546547 Screening for malignant neoplasm of rectum 946082943 Screening mammography 54107986 [id number] MD RADHA Jason MD [address] [place] [place] [address] 06/11/2015 07:51:43 06/11/2015 10:43:28 Screening for malignant neoplasm of cervix 584582355 Z12.4 Screening mammography 24 732864 Z12.31 Menopausal syndrome 1237 32349 N95.9 [id number] MD RADHA Jason MD [address] [place] [address] [place] [address] 06/24/2016 13:00:18 06/24/2016 14:38:26 Screening for malignant neoplasm of cervix 740313316 Z12.4 Screening mammography 24 970285 Z12.31 Cares for self 705010996 Z76.89 [id number] MD RADHA Jason MD [address] [place] [address] [place] [address] 07/06/2017 13:18:57 07/06/2017 14:46:33 Screening for malignant neoplasm of cervix 790682315 Z12.4 Screening mammography 24 037208 Z12.31 Lichen scl erosus et atrophicus 13207102 L90.0 [id number] MD RADHA Jason MD [address] [place] [address], [place] [address] 09/02/2019 10:06:05 09/02/2019 11:28:38 Screening for malignant neoplasm of cervix 766388781 Z12.4 Screening mammography 24 460567 Z12.31 Menopausal syndrome 1237 12092 N95.1 [id number] MD RADHA Jason MD [address] [place] [address] [place] [address] 11/20/2020 09:40:11 11/20/2020 12:41:18 Menopausal syndrome 895241501 N95.1 Atrophic vulvovaginitis 75907486 N95.2 [id number] MD RADHA Jason MD [address] [place] [address] [place] [address] 02/03/2021 09:13:28 02/03/2021 09:56:29 Osteopenia 584643132 M85.852 Breast lump 48839404 N63 .0 [id number] MD RADHA Jason MD [address] [place] [address] [place] [address] 02/05/2021 09:06:58 02/05/2021 10:26:06 Anterior chest wall pain 013260534 R07.89 Costal chondritis 833604 04 M94.0 Breast lump 74305089 N63 .23 [id number] MD RADHA Jason MD [address] [place] [address],[facility] [place] [address] 09/01/2021 09:25:15 09/01/2021 11:29:10 Screening for malignant neoplasm of cervix 236294126 Z12.4 Screening mammography 24 596340 Z12.31 Screening for osteoporosis 015450770 N95.8 Menopausal syndrome 1237 79140 N95.8 [id number] MD RADHA Jason MD [address] [place] [address],[facility] [place] [address] 11/08/2022 08:38:37 11/08/2022 10:22:46 Menopausal syndrome 317575694 N95.8 [id number] MD RADHA Jason MD [address] [place] [address],[facility] [place] [address] 09/08/2023 09:28:39 09/08/2023 11:45:52 Screening for malignant neoplasm of cervix 455406566 Z12.4 Screening mammography 24 040415 Z12.31 Screening for osteoporosis 651995253 N95.8 Menopausal syndrome 1237 00752 N95.8 [id number] MD RADHA Jason MD [address] [place] [address],[facility] [place] [address] 11/05/2024 13:24:53 11/05/2024 14:14:41 Menopausal syndrome 155029783 N95.8 Health Concerns Section Related Observation LastModified by Organization Detai ls LastModified Time None Recorded Concern Status LastModified by Organization Details LastModified Time None Recorded Advance Directives Directive None Recorded Payers Insurance Date Sequence Insurance Name Policy Number Policy Schaffer Covered Member ID Schaffer Member ID Guarantor Name 11/02/2024 2 [place] Nasir Lawson [id number] Chelsey Lawson 11/02/2024 1 [place] [employer] Chelsey Lawson [id number] Chelsey Lawson Notes Date Note Type [...] like a swelling. Radha Robert MD [address] [facility],[address], [place], [address], [facility], 02/05/2021 10:21:06 09/01/2021 text/html She is here for annual exam, is doing well on her HRT and elects to continue. She has vasomotor symptoms if she misses a pill. Note from 2020: She is here for annual exam, is doing well, is retired from [employer].She appears to be doing well. She is doing well on HRT and elects to continue. She will call when she needs more aristocort. Radha Robert MD [address] [facility],[address], [place], [address], [facility] - [facility], 09/01/2021 11:25:06 11/08/2022 text/html This visit is a phone telehealth visit. The patient consented to the visit by phone. The patient was at home at the time of the call and the provider and patient were the only people on the line. I was at [address] [facility], [address], [place], [place], at the time of the call. She is taking HRT and doing well on it, she would like continue. She has shira taking it for more than 12 years. She does have hot flashes if she forgets to take it. Radha Robert MD [address] [facility],[address], [place], [address], [facility] - [facility], 11/08/2022 09:09:34 09/08/2023 text/html She is here for annual exam, is doing well on her HRT and elects to continue. She has vasomotor symptoms if she misses a pill. Radha Robert MD [address] [facility],[address], [place], [address], [place] - [facility], 09/08/2023 09:56:15 11/05/2024 text/html She is here to renew her HRT. She is down to 5 days a week, but lower than that and she has vasomotor symptoms. She is doing well and would like to stay on it. Radha Robert MD [address] [facility],[address], [place], [address], [place] - [facility], 11/05/2024 14:09:57 OBGyn Episode No OBEpisode recorded.
[2025-03-26 09:43] VITALS: BP 114/54; PULSE 69; RESP 16; TEMP 36.6; O2SAT 100; BMI 24.6
== END 2025-03-26 10:22 | disposition home or self-care (01) ==
LOC: HO.HMCFM 09:24
PROVIDERS: PCP Nurse Practitioner Family; Visit Provider Nurse Practitioner Family
DX: M85.89 Other specified disorders of bone density and structure, multiple sites (principal); E55.9 Vitamin D deficiency, unspecified; R74.8 Abnormal levels of other serum enzymes; E60 Dietary zinc deficiency; D64.9 Anemia, unspecified; H40.9 Unspecified glaucoma

== ENCOUNTER → 2025-03-26 09:23 | Outpatient (BNVA) | payer MEDICARE, BC, SELFPAY | PROVIDERS: PCP Nurse Practitioner Family; Visit Provider Nurse Practitioner Family | DX: M85.89 Other specified disorders of bone density and structure, multiple sites (principal); E55.9 Vitamin D deficiency, unspecified; R74.8 Abnormal levels of other serum enzymes; E60 Dietary zinc deficiency; D64.9 Anemia, unspecified; H16.209 Unspecified keratoconjunctivitis, unspecified eye; H40.9 Unspecified glaucoma; R42 Dizziness and giddiness; E28.319 Asymptomatic premature menopause; Z80.3 Family history of malignant neoplasm of breast; Z82.49 Family history of ischemic heart disease and other diseases of the circulatory system | CPT/HCPCS: 99212 ==